=== PATIENT | female | born 1965 | race Caucasian/White ===

== ENCOUNTER 2016-08-24 09:35 | Outpatient (CLI) | payer OTHER ==
[~2016-08-24] VITALS: Ht 175.3 cm; Wt 109.1 kg
--- NOTE | ~2016-08-24 | OP ---
PATIENT NAME: AMY RAPHAEL MEDICAL RECORD: [id number] :65 LOCATION:D.CAT ADMISSION DATE: SURGEON: DARLENE KAPLAN MD DATE OF OPERATION: 08/24/2016 PROCEDURES: 1. PTCA stent left circumflex. 2. Intravascular ultrasound. 3. Left heart catheterization. 4. Selective coronary angiography. 5. Left ventriculogram. INDICATION: Angina, coronary artery disease, abnormal nuclear stress test, lateral reversible ischemia. PROCEDURE PERFORMED: After informed consent was obtained and after a detailed explanation of risks, benefits as well as alternative therapies, the patient elected to proceed with angiogram and angioplasty. The right femoral area was prepped and draped in normal sterile fashion. The right femoral artery was cannulated via modified Seldinger technique with placement of 6-[place] sheath. All catheters exchanged through this sheath. FINDINGS: Left ventriculogram was performed in standard 30-degree RIVERA view, reveals good cardiac wall motion throughout all segments. Overall ejection fraction estimated 60%. SELECTIVE CORONARY ANGIOGRAPHY: 1. Left main showed no significant angiographic disease. 2. Left anterior descending has mild irregularities, no flow-limiting stenosis. Previously placed stent is widely patent with no significant restenosis. 3. The left circumflex has previously placed stent. This is widely patent with no significant restenosis. However, after the stent, there is greater than 70% stenosis confirmed by intravascular ultrasound. 4. Right coronary has moderate irregularities, but no flow-limiting stenosis. PTCA STENT OF THE LEFT CIRCUMFLEX: The stent used was a 3.0 x 18 mm BioFreedom. Result was 0% residual stenosis. OVERALL IMPRESSION: Successful percutaneous transluminal coronary angioplasty stent of the left circumflex going from 70% initial stenosis to 0% residual. TRANSINT: Voice Confirmation ID: [id number] DOCUMENT ID: [id number] DARLENE KAPLAN MD CC: [id number] DICTATION DATE: 08/24/16 1231 BRANCH EXAMINER: 08/24/161936 [facility] CLI 08/24/16 [place] [id number] [place] [id number]
--- NOTE | ~2016-08-24 | HEMODYNAMI ---
PATIENT:AMY RAPHAEL MEDICAL RECORD: [id number] : 65 LOCATION:[facility] ADMISSION DATE: 08/24/16 Generatedon:08/24/201612:27 Patient name: AMY RAPHAEL Patient #: [id number] SSN: DO B: 1965 Date of study: 08/24/2016 Page: Of Hemodynamic Procedure Report Patient Data Patient Demographics Procedure consent was obtained First Name: AMY Gender: Female Last Name: DONAVON : 1965 [facility] Initial: MARNIE Age: 51 year(s) Patient #: [id number] Race: Unknown Additional ID: [id number] Contact details Address: [address] [place] [address] rd State: [place] City: [facility] Zip code: [address] Past Medical History Allergies Allergen Reaction Date Comments Reported Other allergy 08/24/2016 Sulfa, Zofran, phenergan, Rocephin. Admission Admission Data Admission Date: 08/24/2016 Admission Time: 9:35 Lab Results Lab Result Date: 08/24/2016 Lab Result Time: 0:00 Biochemistry Name Units Result Min Max CK-MB ng/ml 0.7 --(*---)-- 0 3.6 Creatinine mg/dl 0.8 --(-*--)-- 0.6 1.3 Troponin l ng/ml 0.017 --(-*--)-- 0 0.06 CBC Name Units Result Min Max Hemoglobin g/dl 14.9 --(-*--)-- 13.5 17.5 Procedure Procedure Types Cath Procedure Diagnostic Procedure C [facility] w/Coronaries PCI Procedure Coronary Stent Initial Miscellaneous Procedures Moderate Sedation up to 30 minutes Procedure Description Procedure Date Procedure Date: 08/24/2016 Procedure Start Time: 12:05 Procedure End Time: 12:25 Procedure Staff Name Function Byron Dhaliwal MD Performing Physician Ciara Duque RT Scrub Samy Ledbetter RN Nurse Adelfo Uribe RT Monitor Procedure Data Cath Procedure Fluoroscopy Diagnostic fluoroscopy Total fluoroscopy Time: 3.8 time: 3.8 min min Diagnostic fluoroscopy Total fluoroscopy dose: 688 dose: 688 mGy mGy Contrast Material Contrast Material Type Amount (ml) Isovue 300 95 Entry Location Entry Primary Successful Side Size Upsize Upsize Entry Closure Succes sful Closure Location (Fr) 1 (Fr) 2 (Fr) Remarks Device Remarks Femoral Right 5 Fr 6 Fr Exoseal artery Short Estimated blood loss: 10 ml Diagnostic catheters Device Type Used For End Catheter Placement Cordis 5Fr Pigtail Procedure Catheter (MP) Cordis 5Fr JL 4.0 Procedure Catheter (MP) Cordis 5Fr 3DRC Catheter Procedure (MP) Procedure Complications No complications Procedure Medications Medication Administration Route Dosage Oxygen NC 2 l/min Heparin Flush Bag added to field 2 bags (1000units/500ml NS) 0.9% NaCl I.V. 100 ml/hr Ativan 2 mg Fentanyl I.V. 50 mcg Versed I.V. 1 mg Fentanyl I.V. 50 mcg Versed I.V. 1 mg Fentanyl I.V. 50 mcg Versed I.V. 1 mg Heparin Bolus I.V. 4000 units Hemodynamics Rest HGB: 14.9 (g/dl) Heart Rate: 68 (bpm) Snapshots Pre Cath Intra NCS Post Cath Vital Signs Time Heart Resp SPO2 etCO2 MG1bhml NIBP (mmHg) Rhythm Pain Sedation Rate (ipm) (%) (mmHg) (mmHg) Status Level (bpm) 11:51:58 68 17 94 0 0 148/81(124) NSR 0 (11) 10(A) , No pain 11:56:13 67 19 96 0 0 150/86(106) NSR 0 (11) 10(A) , No pain 12:00:28 71 18 96 0 0 148/94(131) NSR 0 (11) 10(A) , No pain 12:04:43 70 18 94 0 0 152/84(103) NSR 0 (11) 10(A) , No pain 12:08:59 69 18 94 0 0 135/81(106) NSR 0 (11) 10(A) , No pain 12:13:11 72 18 96 0 0 130/87(111) NSR 0 (11) 9(A) , No pain 12:17:21 73 19 94 0 0 131/84(111) NSR 0 (11) 9(A) , No pain 12:21:31 72 18 94 0 0 133/78(98) NSR 0 (11) 9(A) , No pain 12:25:39 71 20 91 0 0 145/93(121) NSR 0 (11) 9(A) , No pain Medications Time Medication Route Dose Verified Delivered Reason Notes Effectiveness by by 11:51:41 Oxygen NC 2 Samy Lyonsy Per physician l/min Anatoly Ledbetter RN RN 11:51:50 Heparin Flush added 2 Samy Samy used for Bag to bags Anatoly Ledbetter RN procedure (1000units/500ml field RN NS) 11:52:02 0.9% NaCl I.V. 100 Samy Samy Per physician ml/hr Anatoly Ledbetter RN RN 11:52:41 Ativan I V 2 mg Byron Samy for anxiety Madhuri Ledbetter RN 12:00:12 Fentanyl I.V. 50 Samy Samy for sedation mcg Anatoly Ledbetter RN RN 12:00:20 Versed I.V. 1 mg Samy Samy for sedation Anatoly Ledbetter RN RN 12:03:21 Fentanyl I.V. 50 Samy Samy for sedation mcg Anatoly Ledbetter RN RN 12:03:26 Versed I.V. 1 mg Samy Samy for sedation Anatoly Ledbetter RN RN 12:05:59 Fentanyl I.V. 50 Samy Samy for sedation mcg Anatoly Ledbetter RN RN 12:06:04 Versed I.V. 1 mg Samy Samy for sedation Anatoly Ledbetter RN RN 12:11:17 Heparin Bolus I.V. 4000 Samy Samy for units Anatoly Ledbetter RN anticoagulation wardrobe consultant Log Time Note 11:30:09 Samy Ledbetter RN sent for patient. Start room use. 11:33:09 Time tracking: Regular hours 11:33:13 Plan of Care:Hemodynamics will remain stable., Cardiac rhythm will remain stable., Comfort level will be maintained., Respiratory function will remain adequate., Patient/ family verbilizes understanding of procedure., Procedure tolerated without complication., Recovers from procedure without complications.. 11:33:17 Use device set Femoral Dx 11:33:18 Acist Syringe opened to sterile field. 11:33:19 Bag Decanter opened to sterile field. 11:33:19 Medline Cath Pack opened to sterile field. 11:33:20 Terumo 5Fr Carmel Sheath opened to sterile field. 11:33:20 St Koko 260cm J .035 wire opened to sterile field. 11:33:21 Acist Hand Control opened to sterile field. 11:33:22 Acist Manifold opened to sterile field. 11:33:22 Diagnostic Infinity 5Fr Multipack catheter opened to sterile field. 11:33:23 Tegaderm 4 x 4 opened to sterile field. 11:40:51 Lab Result : Troponin l 0.017 ng/ml 11:40:51 Lab Result : Hemoglobin 14.9 g/dl 11:40:51 Lab Result : Creatinine 0.8 mg/dl 11:40:51 Lab Result : CK-MB 0.7 ng/ml 11:46:13 Patient received from Pre/Post Procedure Room to CCL 1 Alert and oriented. Tansferred to table in Supine position. 11:46:15 Warm blankets applied, and paloma hugger turned on for patient comfort. 11:46:16 Correct patient and procedure confirmed by team. 11:46:17 ECG and BP/O2 sat monitors applied to patient. 11:46:18 Correct patient and procedure confirmed by team. 11:46:19 Signed procedure consent form obtained from patient. 11:46:23 Full Disclosure recording started 11:50:41 Vital chart was started 11:51:41 Oxygen 2 l/min NC was administered by Samy Ledbetter RN; Per physician; 11:51:50 Heparin Flush Bag (1000units/500ml NS) 2 bags added to field was administered by Samy Ledbetter RN; used for procedure; 11:52:02 0.9% NaCl 100 ml/hr I.V. was administered by Samy Ledbetter RN; Per physician; 11:52:41 Ativan 2 mg I V was administered by Samy Ledbetter RN; for anxiety; 11:54:58 Baseline sample Acquired. 11:55:01 Rhythm: sinus rhythm 11:55:14 H&P Date Dictated: 08/03/2016 Within 30 days and on chart., H&P Addendum completed by physician on day of procedure. (MUST COMPLETE FOR ALL OUTPATIENTS). 11:57:57 Pre-procedure instructions explained to patient. 11:57:58 Pre-op teaching completed and patient verbalized understanding. 11:58:01 Family in waiting room. 11:58:03 Patient NPO since Midnight. 11:58:27 Patient allergic to Other allergySulfa, Zofran, phenergan, Rocephin. 11:58:31 Is the patient allergic to Iodine/contrast media? No. 11:58:33 Is patient on blood thinner?Yes 11:58:36 ACC The patient was administered the following blood thiners within the last 24 hours: ACCPlavix 11:58:38 Patient diabetic? No. 11:58:41 Previous problem with sedation/anesthesia? No ? 11:58:42 Snore? Yes 11:58:43 Sleep apnea? No 11:58:44 Deviated septum? No 11:58:44 Opens mouth fully? Yes 11:58:45 Sticks out tongue? Yes 11:58:47 Airway obstruction? No ? 11:58:49 Dentures? No ? 11:58:54 Pre procedure: right dorsailis pedis pulse 2+ Normal; easily identifiable; not easily obliterated 11:58:56 Patient pain scale 3/10 ?. 11:59:03 IV patent on arrival in left forearm with 0.9% NaCl at O. 11:59:05 Lab results completed and on chart. 11:59:09 Right groin area was prepped with chlora-prep and draped in sterile fashion 11:59:09 Alarms reviewed by R. N. 11:59:10 Sharps counted by scrub and verified by R.N. 11:59:23 Use device set Femoral Dx 11:59:27 Tegaderm 4 x 4 opened to sterile field. 11:59:29 Diagnostic Infinity 5Fr Multipack catheter opened to sterile field. 11:59:30 Acist Manifold opened to sterile field. 11:59:31 Acist Hand Control opened to sterile field. 11:59:32 Acist Syringe opened to sterile field. 11:59:33 Bag Decanter opened to sterile field. 11:59:33 Medline Cath Pack opened to sterile field. 11:59:35 Terumo 5Fr Carmel Sheath opened to sterile field. 11:59:36 St Koko 260cm J .035 wire opened to sterile field. 11:59:45 Physician arrived 11:59:46 --------ALL STOP TIME OUT------ 11:59:46 Final Timeout: patient, procedure, and site verified with staff and physician. All members of the team are in agreement. 11:59:48 Right groin site verified by team. 11:59:50 Physical assessment completed. ASA score P 2 - A patient with mild systemic disease as per Byron Dhaliwal MD. 11:59:53 Sedation plan: IV Moderate Sedation Versed, Fentanyl 12:00:12 Fentanyl 50 mcg I.V. was administered by Samy Ledbetter RN; for sedation; 12:00:20 Versed 1 mg I.V. was administered by Samy Ledbetter RN; for sedation; 12:03:21 Fentanyl 50 mcg I.V. was administered by Samy Ledbetter RN; for sedation; 12:03:26 Versed 1 mg I.V. was administered by Samy Ledbetter RN; for sedation; 12:05:23 Procedure started. 12:05:25 Local anesthetic to right femoral artery with Lidocaine 2% by Byron Dhaliwal MD.INITIAL ACCESS ONLY 12:05:33 A 5 Fr sheath was inserted into the Right Femoral artery 12:05:46 Zero performed for pressure channel P1 12:05:59 Fentanyl 50 mcg I.V. was administered by Samy Ledbetter RN; for sedation; 12:06:04 Versed 1 mg I.V. was administered by Samy Ledbetter RN; for sedation; 12:06:56 A Cordis 5Fr Pigtail Catheter (MP) was advanced over the wire and used for Procedure. 12:06:59 LV gram done using RIVERA 12:07:07 Injector settings: Ml/sec: 10, Volume: 20, 12:07:11 EF : 55 % 12:07:14 Catheter exchanged over wire. 12:07:32 A Cordis 5Fr JL 4.0 Catheter (MP) was advanced over the wire and used for Procedure. 12:07:35 LCA angiography performed. 12:08:30 Abzena BasixCompak Inflation Kit opened to sterile field. 12:08:34 Cardenas Whisper J 300cm 0.014 guide wire opened to sterile field. 12:08:40 Catheter exchanged over wire. 12:08:45 A Cordis 5Fr 3DRC Catheter (MP) was advanced over the wire and used for Procedure. 12:08:52 Terumo 6Fr Carmel Sheath opened to sterile field. 12:09:21 RCA angiography performed. 12:09:35 RCA angiography performed. 12:10:20 Catheter removed. 12:10:35 Sheath upsized to a 6 Fr Short. 12:10:50 Cordis 6FR XB 4.0 guide catheter opened to sterile field. 12:10:58 6 Fr XB 4 guide catheter was inserted over the wire 12:11:17 Heparin Bolus 4000 units I.V. was administered by Samy Ledbetter RN; for anticoagulation; 12:11:37 whisper wire advanced. 12:12:17 Meherrin Kashia Eagleye IVUS Catheter opened to sterile field. 12:12:21 Wire advanced across lesion. 12:12:23 IVUS catheter advanced over wire. 12:13:25 IVUS catheter removed over wire. 12:13:28 Wire removed. 12:17:37 whisper wire advanced. 12:17:39 Wire advanced across lesion. 12:17:41 Inflation Number: 1 A Biofreedom 3.0 x 18 stent was prepped and advanced across the Mid CX. The stent was deployed at 9 JUSTIN for 0:10 (min:sec). 12:18:22 Stent catheter was removed intact over wire. 12:18:23 Wire removed. 12:18:24 Guide catheter removed. 12:19:19 Cordis 6Fr Exoseal opened to sterile field. 12:20:03 Sheath removed intact; hemostasis achieved with Exoseal to the Right Femoral artery. 12:20:05 Procedure ended.(Physican Out) 12:21:17 Fluoroscopy time 03.80 minutes. 12:21:22 Flurop Dose total: 688 12:21:22 Fluoroscopy dose: 688 mGy 12:21:28 Contrast amount:Isovue 300 95ml. 12:21:30 Sharps counted by scrub and verified by R.N. 12:22:11 Insertion/operative site no bleeding no hematoma. 12:22:14 Post-op/insertion site Right Femoral artery dressed using a 4 x 4 and Tegaderm. 12:22:17 Post right femoral artery:stable, soft, clean and dry 12:22:19 Post Procedure Pulses reassessed and unchanged 12:22:22 Post-procedure physical assessment completed. ASA score P 2 - A patient with mild systemic disease as per Byron Dhaliwal MD. 12::24 Post procedure rhythm: unchanged. 12:: Estimated blood loss: 10 ml 12::28 Post procedure instruction explained to patient.Patient verbalizes understanding. 12:: Patient needs reinforcement of post procedure teaching. 12:23:24 Procedure type changed to Cath procedure, Diagnostic procedure, LHC, LHC w/Coronaries, PCI procedure, Coronary Stent Initial, Miscellaneous Procedures, Moderate Sedation up to 30 minutes 12:: Procedure and supply charges have been captured, reviewed, submitted and are correct. 12:: Procedure Complication : No complications 12:: Vital chart was stopped 12:: See physician's report for complete and final results. 12:: Report given to Pre/Post Procedure Room. 12::29 Patient transfered to Pre/Post Procedure Room with Stretcher. 12::31 Procedure ended. 12:: Full Disclosure recording stopped 12:26:07 End room use (Document Last) Intervention Summary Intervention Notes Time ActionType Lesion and Equipment Action# Pressure Duration Attributes Used 12:17:41 Place stent Mid CX Biofreedom 1 9 00:10 3.0 x 18 stent Device Usage Item Name Manufacture Quantity Catalog Hospital Part Current Minimal Lot# / Number Charge Number Stock Stock Serial# Code Acist Acist 2 83608 991156 627131 294004 20 Syringe Medical Systems Inc Bag Microtek 2 2002S [id number] 54067 824555 5 Decanter Medical Inc. Medline Cardinal 2 [id number] 323432 40756 868335 5 Cath Pack Health Terumo 5Fr Terumo 2 [id number] 518853 989712 562244 [address] Koko 2 277987 595389 673330 094338 30 260cm J .035 wire Acist Hand Acist 2 58290 516377 864231 153977 5 Control Medical Systems Inc Acist Acist 2 51512 170325 740459 526007 5 Manifold Medical Systems Inc Diagnostic Cardinal 2 [id number] 311472 36389 319095 30 Home Team Therapy 5Fr Multipack catheter Tegaderm 4 3M 2 1626W 058482 795138 537879 5 x 4 Cordis 5Fr Cardinal 1 840211 5 Pigtail Health Catheter (MP) Cordis 5Fr Cardinal 1 534675 5 JL 4.0 Health Catheter (MP) Merit Merit 1 [id number] 321387 844876 501230 15 BasixCompak Medical Inflation Kit Cardenas Cardenas 1 [id number] 500561 555757 254258 5 Whisper J Vascular 300cm 0.014 guide wire Cordis 5Fr Cardinal 1 992341 5 3DRC Health Catheter (MP) Terumo 6Fr Terumo 1 [id number] 877840 892338 038114 40 Carmel Sheath Meherrin Meherrin 1 [id number] 025552 477061 377893 8 Kashia Eagleye IVUS Catheter Biofreedom Biosensors 1 [id number] 128534 020520 5 [id number] 3.0 x 18 Europe SA stent Cordis 6Fr Cardinal 1 EX600 042806 292027 562876 10 Exoseal Health Cordis 6FR Cardinal 1 [id number] 558064 481265 992878 2 XB 4.0 Health guide catheter Signature Audit Sprague Stage Time Signature Unsigned Intra-Procedure 08/24/2016 Adelfo Uribe 12:27:15 PM RT(R) Signatures Monitor : Adelfo Uribe RT Signature : Date : Time : [facility] [address] [place] [address]
--- NOTE | ~2016-08-24 | DS ---
PATIENT:AMY RAPHAEL :65 MEDICAL RECORD: [id number] DISCHARGE SUMMARY ADMISSION DATE: 08/24/16 DISCHARGE DATE: 08/24/16 DIAGNOSES: 1. Angina. 2. Coronary artery disease. 3. Percutaneous transluminal coronary angioplasty stent of the left circumflex this admission. HOSPITAL COURSE: Mrs. Raphael presents as an outpatient with anginal symptomatology, found to have single vessel disease to the left circumflex, underwent successful PTCA stent with no complications, discharged home with the addition of Plavix and aspirin to her medical regimen. We will follow up with [facility] in 1 month. TRANSINT:[id number] Voice Confirmation ID: [id number] DOCUMENT ID: [id number] DARLENE KAPLAN MD CC: [id number] DICTATION DATE: 08/24/16 1559 [employer] TANK[employer] DRIVER: 08/25/16 0105 DEP CLI 08/24/16 [place] [id number] [place] [id number]
[~2016-08-24 09:35] MED LIST: ASPIRIN81 MG PO; ATIVAN1 MG; AUGMENTIN1 TAB.SR . PO; CALTRATE 600 M600 M1 PO; CORTANE-B OTIC10 ML RIGHT EAR; CYMBALTA30 MG PO; DIFLUCAN100 MG PO; HYDROCODONE-APA1 TAB PO; IPRAT-ALBUT 0.5-3 ML UPD; LIDOCAINE PATCH TD; LIDOCAINE-PRILOC5 GM TP; LOPRESSOR25 MG PO; MULTI-DAY VITAM1 TAB PO; NORCO 10/325 TA1 TA1; NYSTATIN1 PWD TOPICAL; OMEPRAZOLE40 MG PO; PHENERGAN25 M1; PHENERGAN50 MG RC; PLAVIX75 MG PO; PRAVACHOL20 MG PO; PRILOSEC20 MG PO; PRISTIQ50 MG PO; PROBIOTIC1 EAC1 PO; ROBAXIN-750750 MG PO; ROBITUSSIN AC (10 M1 PO; SINEQUAN100 MG PO; VITAMIN B-1000 MCG/M SQ; VITAMIN D250000 UNIT PO; VITAMIN D31000 UNIT PO; VITAMIN D50000 UNIT PO; XANAX0.25 MG; XANAX0.25 MG PO
[2016-08-24] MEDS ORDERED: VITAMIN B COMPL1 TAB PO (09:59)
[2016-08-24] MEDS ORDERED: PRENATAL-U CA1 UDCAP PO (09:59)
[2016-08-24] MEDS ORDERED: VITAMIN B-1000 MCG/M SQ (09:59)
[2016-08-24 10:00] VITALS: BP 135/77; Ht 175.3 cm; Wt 109.1 kg
[2016-08-24 10:12] LABS: BASOPHILS 0.3 % (0.0-2.0); EOSINOPHILS 0.1 % (0-7); HEMATOCRIT 45.8 % (36.0-48.0); HEMOGLOBIN 14.9 g/dL (12-16); IMMATURE GRANULOCYTES 0.3 % (0-5); LYMPHOCYTES 31.3 % (15-50); MCH 29.7 pg (26.0-34.0); MCHC 32.5 g/dL (31.0-37.0); MCV 91.2 fL (80.0-100.0); MEAN PLATELET VOLUME 11.3 fL (7.4-10.4); MONOCYTES 7.1 % (2-11); NEUTROPHILS 60.9 % (40-80); PLATELET COUNT 260 10x3/uL (130-400); RBC 5.02 10x6/uL (4.00-5.40); RDW 13.7 % (11.5-14.5); WBC 7.5 10x3/uL (4.8-10.8)
[2016-08-24 10:20] LABS: CALC OSMOLALITY 283 mosm/kg (275-300); CALCIUM 9.2 mg/dL (8.5-10.1); CARBON DIOXIDE 29.5 mmol/L (21.0-32.0); CHLORIDE - SERUM 104 mmol/L (98-107); CREATININE - SERUM 0.8 mg/dL (0.6-1.3); GLUCOSE 99 mg/dL (74-106); POTASSIUM - SERUM 4.4 mmol/L (3.5-5.1); SODIUM 143 mmol/L (136-145); UREA NITROGEN 9 mg/dL (7-18); eGFR NON AFRICAN AMERICAN 80 mL/min (90-120)
[2016-08-24 10:45] LABS: CKMB 0.7 U/L (0.0-3.6); CREATINE KINASE 107 UL (21-215); TROPONIN-I < 0.017 ng/mL (0.000-0.060)
[2016-08-24] MEDS ORDERED: PLAVIX75 MG PO (12:55)
[2016-08-24] MEDS ORDERED: BAYER CHEWABLE81 MG PO (12:56)
--- NOTE | 2016-08-24 13:06 | NUR ---
VSS WITH CHEST PAIN DENIED 6 FR EXOSEAL R/GROIN CDI NO BLEEDING NO HEMATOMA NOTED.
--- NOTE | 2016-08-24 13:30 | NUR ---
1330 CHEST PAIN DENIED WITH VSS 6 FR EXOSEAL R/GROIN CDI NO BLEEDING NO HEMATOMA NOTED.
--- NOTE | 2016-08-24 14:00 | NUR ---
RESTING QUIETLY WITH EYES CLOSED NO DISTRESS NOTED. AT BEDSIDE VSS WITH 6 FR EXOSEAL R/GROIN CDI NO BLEEDING NO HEMATOMA NOTED
--- NOTE | 2016-08-24 14:20 | NUR ---
NO COMPLAINTS WITH VSS CHEST PAIN DENIED R/GROIN CDI
--- NOTE | 2016-08-24 15:30 | NUR ---
PATIENT COMPLAINS OF CHEST PAIN WITH DR KAPLAN NOTIFIED EKG COMPLETE AND TO CHART WITH LAB PRESENT FOR BLOOD DRAW. PATIENT REQUESTING ATIVAN ORDERS GIVEN WITH 1 MG GIVEN PO. PATIENT VERBALIZED I THOUGHT THIS WOULD BE IV
[2016-08-24 16:02] LABS: CKMB 0.5 U/L (0.0-3.6); CREATINE KINASE 83 UL (21-215)
[2016-08-24 16:07] LABS: TROPONIN-I 0.016 ng/mL (0.000-0.060)
--- NOTE | 2016-08-24 16:29 | NUR ---
PIV REMOVED WITH DRESSING APPLIED CHEST PAIN IS DENIED. 6 FR EXOSEAL R/GROIN CDI NO BLEEDING NO HEMATOMA NOTED. PATIENT UP TO GET DRESSED FOR DISCHARGE HOME
--- NOTE | 2016-08-24 16:43 | NUR ---
VERBAL AND WRITTEN DISCHARGE GONE OVER WITH PATIENT AND FAMILY. LEFT VIA WC TO PARKING FOR DRIVE HOME
== END 2016-08-24 16:46 | disposition home or self-care (01) ==
LOC: D.CATH 09:35
PROVIDERS: Internal Medicine Interventional Cardiology
DX: I25.119 Atherosclerotic heart disease of native coronary artery with unspecified angina pectoris (principal); R94.39 Abnormal result of other cardiovascular function study; Z95.5 Presence of coronary angioplasty implant and graft; Z00.6 Encounter for examination for normal comparison and control in clinical research program

== ENCOUNTER → 2016-12-01 08:24 | Outpatient (CLI) | payer OTHER ==
[2016-08-24 10:00] VITALS: BMI 35.5
[~2016-12-01 08:24] MED LIST changes: +BAYER CHEWABLE81 MG PO; +PRENATAL-U CA1 UDCAP PO; +VITAMIN B COMPL1 TAB PO
[2016-12-01 08:52] LABS: BASOPHILS 0 % (0-2); EOSINOPHILS 0.1 % (0-7); HEMATOCRIT 43.9 % (36.0-48.0); HEMOGLOBIN 14.4 g/dL (12-16); IMMATURE GRANULOCYTES 0.1 % (0-5); LYMPHOCYTES 30.9 % (15-50); MCH 29.3 pg (26.0-34.0); MCHC 32.8 g/dL (31.0-37.0); MCV 89.2 fL (80.0-100.0); MEAN PLATELET VOLUME 11.1 fL (7.4-10.4); MONOCYTES 4.9 % (2-11); PLATELET COUNT 246 10x3/uL (130-400); RBC 4.92 10x6/uL (4.00-5.40); RDW 13.5 % (11.5-14.5); WBC 6.7 10x3/uL (4.8-10.8)
[2016-12-01 09:18] LABS: HEMOGLOBIN A1C 5.5 % (4.8-6.0)
[2016-12-01 09:20] LABS: ALBUMIN 3.5 g/dL (3.4-5.0); ALKALINE PHOSPHATASE 119 U/L (46-116); ALT (SGPT) 115 U/L (10-68); BILIRUBIN - TOTAL 0.43 mg/dL (0.2-1.3); CALC OSMOLALITY 284 mosm/kg (275-300); CALCIUM 8.9 mg/dL (8.5-10.1); CARBON DIOXIDE 29.6 mmol/L (21.0-32.0); CHLORIDE - SERUM 106 mmol/L (98-107); CHOL - HDL RATIO 2.1 ratio (2.3-4.1); CHOLESTEROL, TOTAL 151 mg/dL (0-200); CREATININE - SERUM 0.8 mg/dL (0.6-1.3); GLUCOSE 97 mg/dL (74-106); HDL CHOLESTEROL 73 mg/dL (32-96); LDL CHOLESTEROL 61 mg/dL (0-100); LDL-HDL RATIO 0.8 ratio (1.5-3.5); MAGNESIUM - SERUM 1.8 mg/dL (1.8-2.4); POTASSIUM - SERUM 4.3 mmol/L (3.5-5.1); PROTEIN - SERUM 7.1 g/dL (6.4-8.2); SODIUM 144 mmol/L (136-145); TRIGLYCERIDE 85 mg/dL (30-200); UREA NITROGEN 8 mg/dL (7-18); eGFR NON AFRICAN AMERICAN 80 mL/min (90-120)
[2016-12-02 07:25] LABS: VITAMIN D 25 HYDROXY 43.6 ng/mL (30.0-100.0)
== END | disposition home or self-care (01) ==
LOC: D.LAB 08:24
PROVIDERS: Family Medicine
DX: Z00.00 Encounter for general adult medical examination without abnormal findings (principal); I25.10 Atherosclerotic heart disease of native coronary artery without angina pectoris; I10 Essential (primary) hypertension; M79.7 Fibromyalgia; M85.80 Other specified disorders of bone density and structure, unspecified site

== ENCOUNTER → 2017-02-01 13:14 | Outpatient (CLI) | payer OTHER ==
[2016-08-24 10:00] VITALS: BMI 35.5
[2017-02-01 14:20] LABS: HELICOBACTER PYLORI IGG NEGATIVE (NEGATIVE)
== END | disposition home or self-care (01) ==
LOC: D.LAB 13:14
PROVIDERS: Family Medicine
DX: R07.9 Chest pain, unspecified (principal); R10.9 Unspecified abdominal pain

== ENCOUNTER 2017-03-01 07:07 | Outpatient (CLI) | payer OTHER ==
--- NOTE | ~2017-03-01 | HEMODYNAMI ---
PATIENT:AMY RAPHAEL MEDICAL RECORD: [id number] : 65 LOCATION:[facility] ADMISSION DATE: 03/01/17 Generatedon:03/01/20179:12 Patient name: AMY RAPHAEL Patient #: [id number] SSN: DO B: 1965 Date of study: 03/01/2017 Page: Of Hemodynamic Procedure Report Patient Data Patient Demographics Procedure consent was obtained First Name: AMY Gender: Female Last Name: DONAVON : 1965 [facility] Initial: MARNIE Age: 51 year(s) Patient #: [id number] Race: Unknown Additional ID: [id number] Contact details Address: [address] [place] [address] rd State: [place] City: [facility] Zip code: [address] Past Medical History Allergies Allergen Reaction Date Comments Reported Other allergy 08/24/2016 Sulfa, Zofran, phenergan, Rocephin. Admission Admission Data Admission Date: 03/01/2017 Admission Time: 7:07 Procedure Procedure Types Cath Procedure Diagnostic Procedure [facility] w/Coronaries PCI Procedure Coronary Stent Initial Miscellaneous Procedures Moderate Sedation up to 15 minutes Procedure Description Procedure Date Procedure Date: 03/01/2017 Procedure Start Time: 8:53 Procedure End Time: 9:12 Procedure Staff Name Function Colette Dacosta RT Scrub Byron Dhaliwal MD Performing Physician Samy Ledbetter RN Nurse Adalberto Fried RT Monitor Procedure Data Cath Procedure Fluoroscopy Diagnostic fluoroscopy Total fluoroscopy Time: 2.1 time: 2.1 min min Diagnostic fluoroscopy Total fluoroscopy dose: 901 dose: 901 mGy mGy Contrast Material Contrast Material Type Amount (ml) Isovue 300 84 Entry Location Entry Primary Successful Side Size Upsize Upsize Entry Closure Succes sful Closure Location (Fr) 1 (Fr) 2 (Fr) Remarks Device Remarks Femoral Right 5 Fr 6 Fr Exoseal artery Short Estimated blood loss: 10 ml Diagnostic catheters Device Type Used For End Catheter Placement Cordis 5Fr Pigtail Procedure Catheter (MP) Cordis 5Fr JL 4.0 Procedure Catheter (MP) Cordis 5Fr 3DRC Catheter Procedure (MP) Procedure Complications No complications Procedure Medications Medication Administration Route Dosage Oxygen NC 2 l/min Heparin Flush Bag added to field 2 bags (1000units/500ml NS) 0.9% NaCl I.V. 100 ml/hr Fentanyl I.V. 50 mcg Versed I.V. 1 mg Fentanyl I.V. 50 mcg Versed I.V. 1 mg Fentanyl I.V. 50 mcg Versed I.V. 1 mg Fentanyl I.V. 50 mcg Versed I.V. 1 mg Heparin Bolus I.V. 4000 units Integrilin (Bolus I.V. 10.2 ml 2mg/ml) Integrilin (Bolus wasted 9.8 ml 2mg/ml) Plavix P.O. 600 mg Hemodynamics Rest Heart Rate: 76 (bpm) Pressure Samples Time Site Value (mmHg) Purpose Heart Use Rate(bpm) 9:00 AO 138/83(107) Snapshot 70 Snapshots Pre Cath Intra NCS Post Cath Vital Signs Time Heart Resp SPO2 etCO2 NIBP (mmHg) Rhythm Pain Sedation Rate (ipm) (%) (mmHg) Status Level (bpm) 8:43:27 67 10 100 12.8 160/99(123) NSR 0 (11) 10(A) , No pain 8:48:22 76 17 98 12 161/101(125) NSR 0 (11) 10(A) , No pain 8:53:13 75 17 97 0 137/93(109) NSR 0 (11) 10(A) , No pain 8:58:57 72 16 90 0 141/103(122) NSR 0 (11) 10(A) , No pain 9:03:45 76 17 95 10.5 145/88(114) NSR 0 (11) 10(A) , No pain 9:07:39 73 17 97 0 146/81(114) NSR 0 (11) 10(A) , No pain Medications Time Medication Route Dose Verified Delivered Reason Notes Effectiveness by by 8:45:15 Oxygen NC 2 Byron Pablo Per physician l/min Madhuri Ledbetter RN 8:45:24 Heparin Flush added 2 Byron Pablo used for Bag to bags Madhuri Ledbetter skewer up (1000units/500ml field NS) 8:45:32 0.9% NaCl I.V. 100 Byron Samy Per physician ml/hr Madhuri Ledbetter RN 8:50:21 Fentanyl I.V. 50 Byron Samy for sedation mcg Madhuri Ledbetter RN 8:50:28 Versed I.V. 1 mg Byron Samy for sedation Madhuri Ledbetter RN 8:53:44 Fentanyl I.V. 50 Byron Samy for sedation mcg Madhuri Ledbetter RN 8:53:48 Versed I.V. 1 mg Byron Samy for sedation Madhuri Ledbetter RN 8:55:20 Fentanyl I.V. 50 Byron Samy for sedation mcg Madhuri Ledbetter RN 8:55:25 Versed I.V. 1 mg Byron Samy for sedation Madhuri Ledbetter RN 8:56:17 Fentanyl I.V. 50 Byron Samy for sedation mcg Madhuri Ledbetter RN 8:56:21 Versed I.V. 1 mg Byron Lyonsy for sedation Madhuri Ledbetter RN 9:00:56 Heparin Bolus I.V. 4000 Byron Pablo for units Madhuri Ledbetter RN anticoagulation 9:01:08 Integrilin I.V. 10.2 Byron Pablo for (Bolus 2mg/ml) ml Madhuri Ledbetter RN anticoagulation 9:01:18 Integrilin wasted 9.8 Byron Pablo for (Bolus 2mg/ml) ml Madhuri Ledbetter RN anticoagulation 9:05:51 Plavix P.O. 600 Byron Pablo for mg Madhuri Ledbetter RN antiplatelet therapy Procedure Log Time Note 8:26:59 Samy Ledbetter RN sent for patient. Start room use. 8:27:01 Time tracking: Regular hours 8:27:05 Plan of Care:Hemodynamics will remain stable., Cardiac rhythm will remain stable., Comfort level will be maintained., Respiratory function will remain adequate., Patient/ family verbilizes understanding of procedure., Procedure tolerated without complication., Recovers from procedure without complications.. 8:27:55 H&P Date Dictated: 02/22/2017 Within 30 days and on chart.. 8:36:25 Patient received from Pre/Post Procedure Room to [facility] 1 Alert and oriented. Tansferred to table in Supine position. 8:37:26 Warm blankets applied, and paloma hugger turned on for patient comfort. 8:37:27 Correct patient and procedure confirmed by team. 8:37:29 Signed procedure consent form obtained from patient. 8:37:30 ECG and BP/O2 sat monitors applied to patient. 8:42:17 Vital chart was started 8:45:15 Oxygen 2 l/min NC was administered by Samy Ledbetter RN; Per physician; 8:45:24 Heparin Flush Bag (1000units/500ml NS) 2 bags added to field was administered by Samy Ledbetter RN; used for procedure; 8:45:32 0.9% NaCl 100 ml/hr I.V. was administered by Samy Ledbetter RN; Per physician; 8:49:06 Baseline sample Acquired. 8:49:10 Rhythm: sinus rhythm 8:49:11 Full Disclosure recording started 8:49:12 Pre-procedure instructions explained to patient. 8:49:12 Pre-op teaching completed and patient verbalized understanding. 8:49:15 Family in waiting room. 8:49:16 Patient NPO since Midnight. 8:49:18 Is the patient allergic to Iodine/contrast media? No. 8:49:19 Is patient on blood thinner?No 8:49:21 Patient diabetic? No. 8:49:23 Patient not . Patient is over age 55. 8:49:26 Previous problem with sedation/anesthesia? No ? 8:49:31 Snore? No 8:49:32 Sleep apnea? No 8:49:32 Deviated septum? No 8:49:33 Opens mouth fully? Yes 8:49:34 Sticks out tongue? Yes 8:49:35 Airway obstruction? No ? 8:49:37 Dentures? No ? 8:49:39 Pre procedure: right dorsailis pedis pulse 1+ Palpable, but thready & weak; easily obliterated 8:49:41 Patient pain scale 0/10 ?. 8:49:46 IV patent on arrival in left forearm with 0.9% NaCl at [facility]. 8:49:48 Lab results completed and on chart. 8:49:51 Right groin area was prepped with chlora-prep and draped in sterile fashion 8:49:52 Alarms reviewed by R. N. 8:49:53 Sharps counted by scrub and verified by R.N. 8:49:54 --------ALL STOP TIME OUT------ 8:49:54 Final Timeout: patient, procedure, and site verified with staff and physician. All members of the team are in agreement. 8:49:56 Right groin site verified by team. 8:49:59 Physical assessment completed. ASA score P 2 - A patient with mild systemic disease as per Byron Dhaliwal MD. 8:50:02 Sedation plan: IV Moderate Sedation Versed, Fentanyl 8:50:21 Fentanyl 50 mcg I.V. was administered by Samy Ledbetter RN; for sedation; 8:50:28 Versed 1 mg I.V. was administered by Samy Ledbetter RN; for sedation; 8:53:04 Use device set Femoral Dx 8:53:06 Tegaderm 4 x 4 opened to sterile field. 8:53:06 Acist Hand Control opened to sterile field. 8:53:07 Acist Manifold opened to sterile field. 8:53:08 Acist Syringe opened to sterile field. 8:53:08 Bag Decanter opened to sterile field. 8:53:08 Medline Cath Pack opened to sterile field. 8:53:09 Terumo 5Fr [place] Sheath opened to sterile field. 8:53:09 St Koko 260cm J .035 wire opened to sterile field. 8:53:10 Diagnostic Infinity 5Fr Multipack catheter opened to sterile field. 8:53:15 Procedure started. 8:53:42 Local anesthetic to right femoral artery with Lidocaine 2% by Byron Dhaliwal MD.INITIAL ACCESS ONLY 8:53:44 Fentanyl 50 mcg I.V. was administered by Samy Ledbetter RN; for sedation; 8:53:48 Versed 1 mg I.V. was administered by Samy Ledbetter RN; for sedation; 8:53:48 Zero performed for pressure channel P1 8:53:50 Zero performed for pressure channel P1 8:53:52 Zero performed for pressure channel P1 8:53:55 Zero performed for pressure channel P1 8:54:03 Zero performed for pressure channel P1 8:54:06 Zero performed for pressure channel P1 8:54:08 Zero performed for pressure channel P1 8:54:21 Zero performed for pressure channel P1 8:54:23 Zero performed for pressure channel P1 8:54:37 A 5 Fr sheath was inserted into the Right Femoral artery 8:54:43 A Cordis 5Fr Pigtail Catheter (MP) was advanced over the wire and used for Procedure. 8:55:20 Fentanyl 50 mcg I.V. was administered by Samy Ledbetter RN; for sedation; 8:55:20 LV angiography performed. 8:55:21 LV gram done using RIVERA 8:55:25 Versed 1 mg I.V. was administered by Samy Ledbetter RN; for sedation; 8:55:26 EF : 50 % 8:55:32 Injector settings: Ml/sec: 10, Volume: 20, 8:55:33 Catheter removed. 8:55:54 A Cordis 5Fr JL 4.0 Catheter (MP) was advanced over the wire and used for Procedure. 8:56:17 Fentanyl 50 mcg I.V. was administered by Samy Ledbetter RN; for sedation; 8:56:21 Versed 1 mg I.V. was administered by Samy Ledbetter RN; for sedation; 8:56:27 LCA angiography performed. 8:57:06 Catheter removed. 8:57:11 A Cordis 5Fr 3DRC Catheter (MP) was advanced over the wire and used for Procedure. 8:57:42 Terumo 6Fr [place] Sheath opened to sterile field. 8:57:42 Moogi BasixCompak Inflation Kit opened to sterile field. 8:57:44 Cardenas Whisper J 300cm 0.014 guide wire opened to sterile field. 8:58:23 RCA angiography performed. 8:58:24 Catheter removed. 8:58:33 Cordis 6FR XBLAD 3.5 guide catheter opened to sterile field. 8:59:52 Sheath upsized to a 6 Fr Short. 9:00:00 Study PCI Site: Inupiat pCirc has 90% stenosis. 9:00:02 ACC Pre-intervention TATA Flow is 3. 9:00:16 6 Fr XBLAD 3.5 guide catheter was inserted over the wire 9:00:41 Whisper wire advanced. 9:00:56 Heparin Bolus 4000 units I.V. was administered by Samy Ledbetter RN; for anticoagulation; 9:01:08 Integrilin (Bolus 2mg/ml) 10.2 ml I.V. was administered by Samy Ledbetter RN; for anticoagulation; 9:01:18 Integrilin (Bolus 2mg/ml) 9.8 ml wasted was administered by Samy Ledbetter RN; for anticoagulation; 9:01:19 Wire advanced across lesion. 9:01:49 Inflation Number: 1 A Winfield OTW 3.5 x 08 stent was prepped and advanced across the Prox CX. The stent was deployed at 17 JUSTIN for 0:10 (min:sec). 9:03:27 ACC Post-intervention TATA Flow is 3. 9:03:28 Stent catheter was removed intact over wire. 9:03:29 Wire removed. 9:03:30 Guide catheter removed. 9:03:44 Cordis 6Fr Exoseal opened to sterile field. 9:03:58 Sheath removed intact; hemostasis achieved with Exoseal to the Right Femoral artery. 9:04:00 Procedure ended.(Physican Out) 9:05:51 Plavix 600 mg P.O. was administered by Samy Ledbetter RN; for antiplatelet therapy; 9:06:27 Fluoroscopy time 02.10 minutes. 9:06:30 Fluoroscopy dose: 901 mGy 9:06:30 Flurop Dose total: 901 9:06:34 Contrast amount:Isovue 300 84ml. 9:06:36 Sharps counted by scrub and verified by R.N. 9:06:37 Insertion/operative site no bleeding no hematoma. 9:06:40 Post-op/insertion site Right Femoral artery dressed using a 4 x 4 and Tegaderm. 9:06:41 Post Procedure Pulses reassessed and unchanged 9:06:44 Post-procedure physical assessment completed. ASA score P 2 - A patient with mild systemic disease as per Byron Dhaliwal MD. 9:06:46 Post procedure rhythm: unchanged. 9:06:48 Estimated blood loss: 10 ml 9:06:50 Post procedure instruction explained to patient.Patient verbalizes understanding. 9:06:50 Patient needs reinforcement of post procedure teaching. 9:07:25 Procedure type changed to Cath procedure, Diagnostic procedure, LHC, LHC w/Coronaries, PCI procedure, Coronary Stent Initial, Miscellaneous Procedures, Moderate Sedation up to 15 minutes 9:07:27 Procedure and supply charges have been captured, reviewed, submitted and are correct. 9:07:30 Procedure Complication : No complications 9:12:01 Vital chart was stopped 9:12:01 See physician's report for complete and final results. 9:12:06 Report given to Pre/Post Procedure Room. 9:12:09 Patient transfered to Pre/Post Procedure Room with Stretcher. 9:12:17 Procedure ended. 9:12:17 Full Disclosure recording stopped 9:12:21 End room use (Document Last) Intervention Summary Intervention Notes Time ActionType Lesion and Equipment Action# Pressure Duration Attributes Used 9:01:49 Place stent Prox CX Ramon OTW 1 17 00:10 3.5 x 08 stent Device Usage Item Name Manufacture Quantity Catalog Hospital Part Current Minima l Lot# / Number Charge Number Stock Stock Serial# Code Tegaderm 4 3M 1 [id number] 5 x 4 Acist Hand Acist 1 53383 790787 671458 976734 5 Control Medical Systems [employer] Acist Acist 1 88433 078412 293058 766679 5 Manifold Medical Systems [employer] Acist Acist 1 08260 102624 603019 162929 20 Syringe Medical Systems [employer] Bag Microtek 1 2002S 182810 58766 052464 5 DecC2C [employer] Medline Cardinal 1 [id number] 250253 20858 504799 5 Cath Pack Health Terumo 5Fr Terumo 1 [id number] 535989 144731 054968 [address] Koko 1 874386 724541 022893 727273 30 260cm J .035 wire Diagnostic Cardinal 1 [id number] 320321 29684 229458 30 Infinity Health 5Fr Multipack catheter Cordis 5Fr Cardinal 1 [id number] 5 Pigtail Health Catheter (MP) Cordis 5Fr Cardinal 1 485138 5 JL 4.0 Health Catheter (MP) Cordis 5Fr Cardinal 1 674888 5 3DRC Health Catheter (MP) Terumo 6Fr Terumo 1 [id number] 099533 318400 700589 40 [place] Sheath Merit Merit 1 [id number] 417618 619433 162307 15 BasixCompak Medical Inflation Kit Cardenas Cardenas 1 [id number] 634164 935272 695485 5 Whisper J Vascular 300cm 0.014 guide wire Cordis 6FR Cardinal 1 [id number] 580091 697211 580749 10 XBLAD 3.5 Health guide catheter Winfield OTW Medtronic 1 [id number] 885016 1195120 497010 5 [id number] 3.5 x 08 stent Cordis 6Fr Cardinal 1 [id number] 590051 137913 198477 10 [facility] Health Signature Audit [place] Stage Time Signature Unsigned Intra-Procedure 03/01/2017 Adalberto Fried 9:12:34 AM RT(R) Signatures Monitor : Adalberto Fried RT Signature : Date : Time : [place] [id number] [place] [id number]
[~2017-03-01 07:07] MED LIST changes: -ATIVAN1 MG; +ATIVAN1 MG PO
[2017-03-01] MEDS ORDERED: NITRO-DUR0.1 MG TRANSDERM (07:13)
[2017-03-01] MEDS ORDERED: SINEQUAN100 MG PO (07:14)
[2017-03-01] MEDS ORDERED: PRENATAL COMPLE1 TAB PO (07:18)
[2017-03-01] MEDS ORDERED: HYDROCODONE-APA1 TAB PO (07:22)
[2017-03-01 07:25] VITALS: BP 139/74; BMI 35.8
[2017-03-01 07:36] LABS: BASOPHILS 0 % (0-2); EOSINOPHILS 0 % (0-7); HEMATOCRIT 44.3 % (36.0-48.0); HEMOGLOBIN 14.5 g/dL (12-16); IMMATURE GRANULOCYTES 0.2 % (0-5); LYMPHOCYTES 37.1 % (15-50); MCH 29.5 pg (26.0-34.0); MCHC 32.7 g/dL (31.0-37.0); MONOCYTES 6.5 % (2-11); NEUTROPHILS 56.2 % (40-80); PLATELET COUNT 242 10x3/uL (130-400); RBC 4.92 10x6/uL (4.00-5.40); RDW 13.6 % (11.5-14.5)
[2017-03-01 07:57] LABS: ANION GAP 14.5 mmol/L (8-16); CALCIUM 9.2 mg/dL (8.5-10.1); CARBON DIOXIDE 27.6 mmol/L (21.0-32.0); CREATININE - SERUM 0.9 mg/dL (0.6-1.3); POTASSIUM - SERUM 4.1 mmol/L (3.5-5.1)
[2017-03-01] MEDS ORDERED: PLAVIX75 MG PO (10:02)
--- NOTE | 2017-03-03 16:56 | OP ---
PATIENT NAME: AMY RAPHAEL MEDICAL RECORD: [id number] :65 LOCATION:D.[facility] ADMISSION DATE: SURGEON: DARLENE KAPLAN MD DATE OF OPERATION: 03/01/2017 PROCEDURES: 1. PTCA stent of left circumflex. 2. Left heart catheterization. 3. Selective coronary angiography. 4. Left ventriculogram. INDICATION: Angina and coronary artery disease. PROCEDURE IN DETAIL: After informed consent was obtained and after detailed explanation of risks, benefits as well as alternative therapies, the patient elected to proceed with angiogram and angioplasty. The right femoral area was prepped and draped in normal sterile fashion. The right femoral artery was cannulated via modified Seldinger technique with placement of 6-English sheath. All catheters exchanged through this sheath. FINDINGS: The left ventriculogram was performed in the standard 30-degree RIVERA view reveals good cardiac wall motion throughout all segments. Overall ejection fraction 50%. SELECTIVE CORONARY ANGIOGRAPHY: 1. Left main showed no significant angiographic disease. 2. Left anterior descending has moderate irregularities, but no flow-limiting stenosis. 3. The left circumflex has 90% to 95% stenosis at the ostium. 4. Right coronary has 60% to 70% stenosis in the distal aspect, otherwise only mild irregularities. PTCA STENT OF THE LEFT CIRCUMFLEX: The stent used is a 3.5 x 8 mm Ramon. Result was 0% residual stenosis. OVERALL IMPRESSION: Successful percutaneous transluminal coronary angioplasty stent of the left circumflex going from 95% initial stenosis to 0% residual. TRANSINT:[id number] Voice Confirmation ID: [id number] DOCUMENT ID: [id number] DARLENE KAPLAN MD at 1656 CC: [id number] DICTATION DATE: 03/01/17 0923 TIP SCOURER: 03/01/17 1101 DEP CLI 03/01/17 [place] [id number] [place] [id number]
== END 2017-03-01 13:35 | disposition home or self-care (01) ==
LOC: D.CATH 07:07
PROVIDERS: Internal Medicine Interventional Cardiology
DX: I25.119 Atherosclerotic heart disease of native coronary artery with unspecified angina pectoris (principal); Z01.812 Encounter for preprocedural laboratory examination

== ENCOUNTER 2017-04-05 07:33 | Outpatient (CLI) | payer OTHER ==
[~2017-04-05] VITALS: Ht 175.3 cm; Wt 109.1 kg
--- NOTE | ~2017-04-05 | HEMODYNAMI ---
PATIENT:AMY RAPHAEL MEDICAL RECORD: [id number] : 65 LOCATION:[facility] ADMISSION DATE: 04/05/17 Generatedon:04/05/201710:50 Patient name: AMY RAPHAEL Patient #: [id number] SSN: [id number] : 1965 Date of study: 04/05/2017 Page: Of Hemodynamic Procedure Report Patient Data Patient Demographics Procedure consent was obtained First Name: AMY Gender: Female Last Name: DONAVON : 1965 [facility] Initial: MARNIE Age: 52 year(s) Patient #: [id number] Race: SSN: [id number] Additional ID: [id number] Contact details Address: [address] [place] [address] rd State: [place] City: [facility] Zip code: [address] Past Medical History Allergies Allergen Reaction Date Comments Reported Other allergy 08/24/2016 Sulfa, Zofran, phenergan, Rocephin. Other allergy 04/05/2017 Sulfa, Rocephin, Imdur, Zofran, Phenergan Admission Admission Data Admission Date: 04/05/2017 Admission Time: 7:33 Arrival Date: 04/05/2017 Arrival Time: 9:30 Admit Source: Other Insurance Payor: Private health insurance Height (in.): 69 BSA: 2.23 (m2) Height (cm.): 175.26 BMI: 35.44 (kg/m2) Weight (lbs.): 240 Weight (kg.): 108.86 Lab Results Lab Result Date: 04/05/2017 Lab Result Time: 0:00 Biochemistry Name Units Result Min Max BUN mg/dl 9 --(*---)-- 7 18 Creatinine mg/dl 0.8 --(-*--)-- 0.6 1.3 CBC Name Units Result Min Max Hemoglobin g/dl 14.4 --(*---)-- 13.5 17.5 Procedure Procedure Types Cath Procedure Diagnostic Procedure FFR/IVUS Intra-Coronary IVUS Initial PCI Procedure Coronary Stent Coronary Stent Initial Miscellaneous Procedures Moderate Sedation up to 30 minutes Procedure Description Procedure Date Procedure Date: 04/05/2017 Procedure Start Time: 10:34 Procedure End Time: 10:49 Procedure Staff Name Function Byron Dhaliwal MD Performing Physician Denice Grace RT Monitor Yasemin Dolan RT Scrub Samy Ledbetter RN Nurse Procedure Data Cath Procedure Fluoroscopy Diagnostic fluoroscopy Total fluoroscopy Time: 3.8 time: 3.8 min min Diagnostic fluoroscopy Total fluoroscopy dose: 598 dose: 598 mGy mGy Contrast Material Contrast Material Type Amount (ml) Isovue 300 76 Entry Location Entry Primary Successful Side Size Upsize Upsize Entry Closure Succes sful Closure Location (Fr) 1 (Fr) 2 (Fr) Remarks Device Remarks Femoral Left 6 Fr Exoseal artery Short Estimated blood loss: 5 ml Diagnostic catheters Device Type Used For End Catheter Placement Diagnostic Infinity 5Fr Left Coronary JL 4.0 catheter Angiography Procedure Complications No complications Procedure Medications Medication Administration Route Dosage Oxygen NC 2 l/min Heparin Flush Bag added to field 2 bags (1000units/500ml NS) 0.9% NaCl I.V. 100 ml/hr Fentanyl I.V. 100 mcg Versed I.V. 2 mg Fentanyl I.V. 100 mcg Versed I.V. 2 mg Heparin Bolus I.V. 4000 units Hemodynamics Rest BSA: 2.23 (m2) HGB: 14.4 (g/dl) O2 Consumption: Estimated: 225.73 (ml/min) O2 Co nsumption indexed: Estimated:101.22 (ml/min/m) Heart Rate: 81 (bpm) Snapshots Pre Cath Intra NCS Post Cath Vital Signs Time Heart Resp SPO2 etCO2 NIBP (mmHg) Rhythm Pain Sedation Rate (ipm) (%) (mmHg) Status Level (bpm) 10:08:10 77 17 95 0 127/86(108) NSR 0 (11) 10(A) , No pain 10:13:21 79 16 96 0 117/86(111) NSR 0 (11) 10(A) , No pain 10:17:29 72 20 92 0 125/78(97) NSR 0 (11) 10(A) , No pain 10:21:41 76 18 96 15.8 116/80(100) NSR 0 (11) 10(A) , No pain 10:25:55 70 17 93 35.4 116/75(93) NSR 0 (11) 10(A) , No pain 10:30:02 70 18 93 41.4 114/79(95) NSR 0 (11) 10(A) , No pain 10:34:12 69 18 90 46.7 122/70(91) NSR 0 (11) 10(A) , No pain 10:38:18 70 20 91 43.7 115/72(93) NSR 0 (11) 10(A) , No pain 10:42:30 71 20 91 44.4 111/65(94) NSR 0 (11) 10(A) , No pain 10:46:44 74 19 94 41.4 118/59(96) NSR 0 (11) 10(A) , No pain 10:49:16 73 16 93 38.4 116/80(103) NSR 0 (11) 10(A) , No pain Medications Time Medication Route Dose Verified Delivered Reason Notes Effectiveness by by 10:14:42 Oxygen NC 2 Byron Samy l/min Madhuri Ledbetter RN 10:14:53 Heparin Flush added 2 Byron Lyonsy used for Bag to bags Madhuri Ledbetter RN procedure (1000units/500ml field NS) 10:15:05 0.9% NaCl I.V. 100 Byron Buffie Per physician ml/hr Madhuri Kim RN 10:26:16 Fentanyl I.V. 100 Byron Lyonsy for sedation mcg Madhuri Ledbetter RN 10:26:24 Versed I.V. 2 mg Byron Samy for sedation Madhuri Ledbetter RN 10:31:47 Fentanyl I.V. 100 Byron Samy for sedation mcg Madhuri Ledbetter RN 10:31:50 Versed I.V. 2 mg Byron Samy for sedation Madhuri Ledbetter RN 10:37:34 Heparin Bolus I.V. 4000 Byronmikael Lyonsy for units Madhuri Ledbetter RN anticoagulation Procedure Log Time Note 9:34:15 Informed consent obtained and on chart 9:36:16 Admit Source: Other 9:36:54 Arrival Date: 04/05/2017 9:30:00 AM 9:37:09 Insurance Payor : Private health insurance 9:37:54 Patient Height : 69 inches 9:38:00 Patient Weight : 240 lbs 9:43:35 Lab Result : Hemoglobin 14.4 g/dl 9:43:35 Lab Result : Creatinine 0.8 mg/dl 9:43:35 Lab Result : BUN 9 mg/dl 9:43:51 PCI Cath Status : Elective 9:44:25 Denice Grace RT(R) sent for patient. Start room use. 9:44:26 Time tracking: Regular hours 9:44:31 Plan of Care:Hemodynamics will remain stable., Cardiac rhythm will remain stable., Comfort level will be maintained., Respiratory function will remain adequate., Patient/ family verbilizes understanding of procedure., Procedure tolerated without complication., Recovers from procedure without complications.. 9:58:53 Patient received from Pre/Post Procedure Room to CCL 2 Alert and oriented. Tansferred to table in Supine position. 10:07:05 Vital chart was started 10:07:46 Warm blankets applied, and paloma hugger turned on for patient comfort. 10:07:47 Correct patient and procedure confirmed by team. 10:07:47 ECG and BP/O2 sat monitors applied to patient. 10:07:53 Baseline sample Acquired. 10:08:10 Baseline sample Acquired. 10:08:14 Rhythm: sinus rhythm 10:08:15 Full Disclosure recording started 10:08:38 H&P Date Dictated: 04/03/2017 Within 30 days and on chart., H&P Addendum completed by physician on day of procedure. (MUST COMPLETE FOR ALL OUTPATIENTS). 10:08:39 Pre-procedure instructions explained to patient. 10:08:40 Pre-op teaching completed and patient verbalized understanding. 10:08:41 Family in waiting room. 10:08:43 Patient NPO since Midnight. 10:10:34 Patient allergic to Other allergySulfa, Rocephin, Imdur, Zofran, Phenergan 10:10:36 Is the patient allergic to Iodine/contrast media? No. 10:10:37 Was the patient premedicated? No 10:10:39 Is patient on blood thinner?Yes 10:10:41 ACC The patient was administered the following blood thiners within the last 24 hours: ACCPlavix 10:10:43 Patient diabetic? No. 10:10:46 Previous problem with sedation/anesthesia? No ? 10:10:48 Snore? No 10:10:49 Sleep apnea? No 10:10:50 Deviated septum? No 10:10:51 Opens mouth fully? Yes 10:10:52 Sticks out tongue? Yes 10:12:01 Airway obstruction? No ? 10:12:03 Dentures? No ? 10:12:07 Pre procedure: right dorsailis pedis pulse 2+ Normal; easily identifiable; not easily obliterated 10:12:09 Pre procedure: left dorsailis pedis pulse 2+ Normal; easily identifiable; not easily obliterated 10:12:13 Patient pain scale 0/10 ?. 10:12:29 IV patent on arrival in left forearm with 0.9% NaCl at [facility]. 10:12:41 Lab results completed and on chart. 10:12:45 Left groin area was prepped with chlora-prep and draped in sterile fashion 10:12:46 Alarms reviewed by R. N. 10:12:46 Sharps counted by scrub and verified by R.N. 10:14:42 Oxygen 2 l/min NC was administered by Samy Ledbetter RN; ; 10:14:53 Heparin Flush Bag (1000units/500ml NS) 2 bags added to field was administered by Samy Ledbetter RN; used for procedure; 10:15:05 0.9% NaCl 100 ml/hr I.V. was administered by James Kim RN; Per physician; 10:25:25 Physician arrived 10:25:25 --------ALL STOP TIME OUT------ 10:25:25 Final Timeout: patient, procedure, and site verified with staff and physician. All members of the team are in agreement. 10:25:30 Left groin site verified by team. 10:25:34 Physical assessment completed. ASA score P 2 - A patient with mild systemic disease as per Byron Dhaliwal MD. 10:25:40 Sedation plan: IV Moderate Sedation Medication:Versed, Fentanyl 10:25:52 Use device set Femoral PCI 10:25:55 ACIST: Syringe (52223) opened to sterile field. 10:25:55 ACIST: Hand Control (18355) opened to sterile field. 10:25:56 Bag Decanter (2001S) opened to sterile field. 10:25:56 Medline Cath Pack ([id number]) opened to sterile field. 10:25:57 Terumo 6Fr [place] Sheath opened to sterile field. 10:25:58 St Koko 260cm J .035 wire opened to sterile field. 10:25:58 INFLATOR: Merit BasixCompak Inflation Kit (AA9319) opened to sterile field. 10:25:58 ACIST: Manifold (11927) opened to sterile field. 10:25:59 Tegaderm 4 x 4 opened to sterile field. 10:26:16 Fentanyl 100 mcg I.V. was administered by Samy Ledbetter RN; for sedation; 10:26:24 Versed 2 mg I.V. was administered by Samy Ledbetter RN; for sedation; 10:26:24 Zero performed for pressure channel P1 10:29:45 Medtronic Launcher 6Fr AR 2.0 guide catheter opened to sterile field. 10:29:51 Hundred [place] IVUS Catheter opened to sterile field. 10:31:47 Fentanyl 100 mcg I.V. was administered by Samy Ledbetter RN; for sedation; 10:31:50 Versed 2 mg I.V. was administered by Samy Ledbetter RN; for sedation; 10:34:20 Procedure started. 10:34:26 Local anesthetic to left femerol artery with Lidocaine 2% by Byron Dhaliwal MD.INITIAL ACCESS ONLY 10:34:37 A 6 Fr Short sheath was inserted into the Left Femoral artery 10:35:41 A Diagnostic Infinity 5Fr JL 4.0 catheter was advanced over the wire and used for Left Coronary Angiography. 10:36:21 LCA angiography performed. 10:36:24 Injector settings: Ml/sec: 3, Volume: 6, 10:36:30 Catheter removed. 10:36:40 6 Fr ar 2 guide catheter was inserted over the wire 10:37:34 Heparin Bolus 4000 units I.V. was administered by Samy Ledbetter RN; for anticoagulation; 10:37:49 RCA angiography performed. 10:37:59 choice pt wire advanced. 10:38:02 Wire advanced across lesion. 10:39:48 IVUS catheter advanced over wire. 10:39:50 IVUS pass to RCA lesion performed. 10:40:10 IVUS catheter removed over wire. 10:42:19 Inflation Number: 1 A Gurley RX 2.5 x 15 stent was prepped and advanced across the Dist RCA. The stent was deployed at 13 JUSTIN for 0:10 (min:sec). 10:42:32 Inflation number: 2 The stent balloon was then re-inflated across the Dist RCA to 17 JUSTIN for 0:10 (min:sec). 10:43:31 Stent catheter was removed intact over wire. 10:43:59 Inflation Number: 1 A Gurley RX 3.5 x 18 stent was prepped and advanced across the Mid RCA. The stent was deployed at 17 JUSTIN for 0:10 (min:sec). 10:45:23 Stent catheter was removed intact over wire. 10:45:23 Wire removed. 10:45:24 Guide catheter removed. 10:45:33 Cordis 6Fr Exoseal opened to sterile field. 10:45:42 Sheath removed intact; hemostasis achieved with Exoseal to the Left Femoral artery. 10:45:44 Procedure ended.(Physican Out) 10:48:15 Fluoroscopy time 03.80 minutes. 10:48:29 Fluoroscopy dose: 598 mGy 10:48:29 Flurop Dose total: 598 10:48:35 Contrast amount:Isovue 300 76ml. 10:48:36 Sharps counted by scrub and verified by R.N. 10:48:38 Insertion/operative site no bleeding no hematoma. 10:48:41 Post-op/insertion site Left Femoral artery dressed using a 4 x 4 and Tegaderm. 10:48:44 Post procedure rhythm: unchanged. 10:48:46 Estimated blood loss: 5 ml 10:48:48 Post procedure instruction explained to patient.Patient verbalizes understanding. 10:48:48 Patient needs reinforcement of post procedure teaching. 10:49:05 Procedure type changed to Cath procedure, Diagnostic procedure, FFR/IVUS, Intra-Coronary IVUS Initial, PCI procedure, Coronary Stent, Coronary Stent Initial, Miscellaneous Procedures, Moderate Sedation up to 30 minutes 10:49:06 Procedure and supply charges have been captured, reviewed, submitted and are correct. 10:49:10 Procedure Complication : No complications 10:49:12 Vital chart was stopped 10:49:13 See physician's report for complete and final results. 10:49:15 Report given to Pre/Post Procedure Room. 10:49:17 Patient transfered to Pre/Post Procedure Room with Stretcher. 10:49:19 Procedure ended. 10:49:19 Full Disclosure recording stopped 10:49:33 ACC-PCI Only Patient was given prescriptions, or instructed by Byron Dhaliwal MD to start/continue the following medications upon discharge: Plavix 10:49:34 End room use (Document Last) Intervention Summary Intervention Notes Time ActionType Lesion and Equipment Action# Pressure Duration Attributes Used 10:42:19 Place stent Dist RCA Ramon RX 1 13 00:10 2.5 x 15 stent 10:42:32 Reinflate Dist RCA Ramon RX 2 17 00:10 stent 2.5 x 15 balloon stent 10:43:59 Place stent Mid RCA Gurley RX 1 17 00:10 3.5 x 18 stent Device Usage Item Name Manufacture Quantity Catalog Hospital Part Current Minim al Lot# / Number Charge Number Stock Stock Serial# Code ACIST: Acist 1 45977 083303 522283 440390 20 Syringe Medical (43372) Systems Inc ACIST: Hand Acist 1 34920 358342 664242 823834 5 Control INNJOY Travel (30503) Systems Inc Bag Microtek 1 2001S 572428 29360 427961 5 Decanter Medical Inc. (2001S) Medline Cardinal 1 [id number] 321529 90374 349926 5 Cath Pack 1bib ([id number]) Terumo 6Fr Terumo 1 GLM604 923925 330796 824837 [address] Koko 1 524301 601059 755104 276541 30 260cm J .035 wire INFLATOR: Nandi Proteins 1 IF3411 669860 275831 073294 15 ITN BasixCompak Inflation Kit (ET6323) ACIST: Acist 1 46155 841273 272209 096631 5 Manifold Medical (47625) Systems Inc Tegaderm 4 3M 1 1626W 548301 526774 283728 5 x 4 (1626W) Medtronic Medtronic 1 [id number] 435697 66282 245590 1 Launcher 6Fr AR 2.0 guide catheter Hundred Hundred 1 [id number] 199261 812024 336977 8 [place] IVUS Catheter Diagnostic Cardinal 1 [id number] 505721 981475 857424 10 Infinity Health 5Fr JL 4.0 catheter Gurley RX 2.5 Medtronic 1 [id number] 248654 7575242 647986 5 [id number] x 15 stent Ramon RX 3.5 Medtronic 1 [id number] 329547 3120501 083090 5 [id number] x 18 stent Cordis 6Fr Cardinal 1 EX600 057560 033818 852042 10 [facility] 1bib Signature Audit [place] Stage Time Signature Unsigned Intra-Procedure 04/05/2017 Denice Grace 10:49:59 AM RT(R) Signatures Monitor : Denice Grace RT Signature : Date : Time : [place] [id number] [facility] [place] [address]
[~2017-04-05 07:33] MED LIST changes: +NITRO-DUR0.1 MG TRANSDERM; +PRENATAL COMPLE1 TAB PO
[2017-04-05 08:22] VITALS: BP 115/69; Ht 175.3 cm; Wt 109.1 kg
[2017-04-05 08:47] LABS: BASOPHILS 0.1 % (0-2); EOSINOPHILS 0.1 % (0-7); HEMOGLOBIN 14.4 g/dL (12-16); IMMATURE GRANULOCYTES 0.1 % (0-5); MCH 29.6 pg (26.0-34.0); MCHC 32.7 g/dL (31.0-37.0); MCV 90.3 fL (80.0-100.0); MEAN PLATELET VOLUME 11.2 fL (7.4-10.4); MONOCYTES 8.3 % (2-11); NEUTROPHILS 57.4 % (40-80); PLATELET COUNT 261 10x3/uL (130-400); RBC 4.87 10x6/uL (4.00-5.40); WBC 6.8 10x3/uL (4.8-10.8)
[2017-04-05 09:04] LABS: CALC OSMOLALITY 277 mosm/kg (275-300); CARBON DIOXIDE 27.2 mmol/L (21.0-32.0); CHLORIDE - SERUM 104 mmol/L (98-107); CREATININE - SERUM 0.8 mg/dL (0.6-1.3); GLUCOSE 91 mg/dL (74-106); POTASSIUM - SERUM 3.8 mmol/L (3.5-5.1); SODIUM 140 mmol/L (136-145); UREA NITROGEN 9 mg/dL (7-18); eGFR NON AFRICAN AMERICAN 80 mL/min (90-120)
--- NOTE | 2017-04-05 11:15 | NUR ---
2L NC, NO RESP DISTRESS. LEFT GROIN 6F EXOSEAL CDI, NO BLEEDING OR HEMATOMA NOTED. NO C/O PAIN OR NAUSEA. VSS. FAMILY AT BEDSIDE, CALL LIGHT WITHIN REACH.
--- NOTE | 2017-04-05 11:45 | NUR ---
LEFT GROIN 6F EXOSEAL CDI, NO BLEEDING OR HEMATOMA NOTED. 2L NC, NO RESP DISTRESS. NO C/O PAIN OR NAUSEA. VSS. FAMILY AT BEDSIDE. WILL CONTINUE TO MONITOR CLOSELY.
--- NOTE | 2017-04-05 12:00 | NUR ---
RESTING QUIETLY WITH EYES CLOSED. LEFT GROIN 5F EXOSEAL CDI, NO BLEEDING OR HEMATOMA NOTED. 2L NC, NO RESP DISTRESS. NO C/O NAUSEA OR PAIN AT THIS TIME. VSS. CALL LIGHT WITHIN REACH.
--- NOTE | 2017-04-05 12:59 | NUR ---
LEFT GROIN 6F EXOSEAL CDI, NO BLEEDING OR HEMATOMA NOTED. 2L NC, NO RESP DISTRESS. DRINK AND SANDWICH TRAY GIVEN. NO C/O NAUSEA OR PAIN. VSS. WILL CONTINUE TO MONITOR.
--- NOTE | 2017-04-05 14:07 | NUR ---
HOB ELEVATED 30 DEGREES. LEFT GROIN 6F EXOSEAL CDI, NO BLEEDING OR HEMATOMA NOTED.
--- NOTE | 2017-04-05 14:29 | NUR ---
LEFT WRIST PIV D/C'D WITH CATHETER INTACT, BAND AID TO SITE. UP TO BEDSIDE TO GET DRESSED.
--- NOTE | 2017-04-05 14:35 | NUR ---
UP TO RESTROOM TO VOID.
--- NOTE | 2017-04-05 14:40 | NUR ---
DISCHARGE INSTRUCTIONS GIVEN, VERBALIZED UNDERSTANDING.
--- NOTE | 2017-04-05 14:45 | NUR ---
TAKEN OUT VIA WHEELCHAIR BY CATH LAUNDRY EQUIPMENT OPERATOR. LEFT FACILITY WITH FAMILY AND ALL PERSONAL BELONGINGS.
--- NOTE | 2017-04-18 12:14 | OP ---
PATIENT NAME: AMY RAPHAEL MEDICAL RECORD: [id number] :65 LOCATION:D.CAT ADMISSION DATE: SURGEON: DARLENE KAPLAN MD DATE OF OPERATION: 04/05/2017 DATE OF SERVICE: 04/05/2017 PROCEDURES: 1. PTCA stent RCA. 2. Selective coronary angiography. 3. Intravascular ultrasound. INDICATION: Angina and coronary artery disease. PROCEDURE IN DETAIL: After informed consent was obtained and after a detailed explanation of the risks, benefits as well as alternative therapies, the patient elected to proceed with angiogram and angioplasty. The left femoral area was prepped and draped in normal sterile fashion. Left femoral artery was cannulated via modified Seldinger technique with placement of 6-Polish sheath. All catheters exchanged through this sheath. FINDINGS: Left ventriculogram was not performed. SELECTIVE CORONARY ANGIOGRAPHY: 1. Left main showed no significant angiographic disease. 2. Left anterior descending has moderate irregularities, but no flow-limiting stenosis. 3. The left circumflex has a previously placed stent that is widely patent with no significant restenosis. 4. Right coronary has 2 areas of greater than 70% stenosis confirmed by intravascular ultrasound. PTCA STENT OF THE RIGHT CORONARY: The stent used was a 2.5 x 15 and a 3.5 x 18 both [place] stent. Result was 0% residual stenosis. OVERALL IMPRESSION: Successful percutaneous transluminal coronary angioplasty stent of the right coronary artery going from 75% to 80% initial stenosis times 2 to 0% residual. TRANSINT:[id number] Voice Confirmation ID: [id number] DOCUMENT ID: [id number] DARLENE AKPLAN MD at 1214 CC: [id number] DICTATION DATE: 04/05/17 1049 POWDER CORE TESTER: 04/05/17 1320 DEP CLI 04/05/17 [place] [address]
== END 2017-04-05 14:45 | disposition home or self-care (01) ==
LOC: D.CATH 07:33
PROVIDERS: Internal Medicine Interventional Cardiology
DX: I25.119 Atherosclerotic heart disease of native coronary artery with unspecified angina pectoris (principal); Z95.5 Presence of coronary angioplasty implant and graft; Z01.812 Encounter for preprocedural laboratory examination
CPT/HCPCS: 92978; C9600

== ENCOUNTER → 2017-04-12 13:28 | Outpatient (CLI) | payer OTHER ==
[2017-04-05 08:22] VITALS: BMI 35.5
== END | disposition home or self-care (01) ==
LOC: D.US 13:28
DX: M79.605 Pain in left leg (principal); M79.604 Pain in right leg

== ENCOUNTER → 2017-08-16 12:23 | Outpatient (CLI) | payer OTHER ==
[2017-04-05 08:22] VITALS: BMI 35.5
[2017-08-16 12:53] LABS: BASOPHILS 0.4 % (0-2); EOSINOPHILS 1.1 % (0-7); HEMATOCRIT 42.2 % (36.0-48.0); HEMOGLOBIN 13.8 g/dL (12-16); IMMATURE GRANULOCYTES 0.2 % (0-5); LYMPHOCYTES 29.1 % (15-50); MCH 29.2 pg (26.0-34.0); MCHC 32.7 g/dL (31.0-37.0); MCV 89.2 fL (80.0-100.0); MEAN PLATELET VOLUME 10.8 fL (7.4-10.4); MONOCYTES 7.8 % (2-11); NEUTROPHILS 61.4 % (40-80); PLATELET COUNT 273 10x3/uL (130-400); RBC 4.73 10x6/uL (4.00-5.40); RDW 13.9 % (11.5-14.5); WBC 8.9 10x3/uL (4.8-10.8)
[2017-08-16 13:32] LABS: ALBUMIN 3.6 g/dL (3.4-5.0); BILIRUBIN - TOTAL 0.44 mg/dL (0.2-1.3); CALCIUM 8.8 mg/dL (8.5-10.1); CARBON DIOXIDE 25.9 mmol/L (21.0-32.0); CHOL - HDL RATIO 2.3 ratio (2.3-4.1); CREATININE - SERUM 0.9 mg/dL (0.6-1.3); POTASSIUM - SERUM 3.9 mmol/L (3.5-5.1); PROTEIN - SERUM 7.1 g/dL (6.4-8.2)
== END | disposition home or self-care (01) ==
LOC: D.LAB 12:23
PROVIDERS: Family Medicine
DX: M25.552 Pain in left hip (principal); M25.551 Pain in right hip

== ENCOUNTER 2018-02-05 09:13 | Outpatient (CLI) | payer OTHER ==
[~2018-02-05] VITALS: Ht 175.3 cm; Wt 104.5 kg
--- NOTE | ~2018-02-05 | OP ---
PATIENT NAME: AMY RAPHAEL MEDICAL RECORD: [id number] :65 LOCATION:D.CAT ADMISSION DATE: SURGEON: DARLENE KAPLAN MD DATE OF OPERATION: 02/05/2018 PROCEDURES: 1. PTCA stent left circumflex. 2. Left heart catheterization. 3. Selective coronary angiography. 4. Left ventriculogram. INDICATION: Angina and coronary artery disease. PROCEDURE PERFORMED: After informed consent was obtained and after a detailed description of risks, benefits as well as alternative therapies, the patient elected to proceed with angiogram and angioplasty. The left femoral area was prepped and draped in normal sterile fashion. Left femoral artery was cannulated via modified Seldinger technique with placement of 6-[place] sheath. All catheters exchanged through this sheath. FINDINGS: Left ventriculogram was performed in standard 30-degree RIVERA view, reveals good cardiac wall motion throughout all segments. Overall ejection fraction estimated 60%. SELECTIVE CORONARY ANGIOGRAPHY: 1. Left main is with no significant angiographic disease. 2. Left anterior descending has previously placed stents, these are widely patent with no significant restenosis. No disease elsewhere throughout the LAD or its branches. 3. Left circumflex has previously placed stents, these are widely patent; however, there is greater than 80% stenosis at the ostium of the circumflex. 4. Right coronary artery has moderate irregularities, but no flow-limiting stenosis. PTCA STENT OF THE LEFT CIRCUMFLEX OSTIUM: The stent used was a 3.5 x 8 mm [place]. Result was 0% residual stenosis. OVERALL IMPRESSION: Successful percutaneous transluminal coronary angioplasty stent of the left circumflex going from 80% initial stenosis to 0% residual. TRANSINT:[id number] Voice Confirmation ID: [id number] DOCUMENT ID: [id number] DARLENE KALPAN MD at 0934 CC: [id number] DICTATION DATE: 02/05/18 1210 INSURANCE AGENT: 02/05/18 1505 [facility] CLI 02/05/[address] [address]
--- NOTE | ~2018-02-05 | HEMODYNAMI ---
PATIENT:AMY RAPHAEL MEDICAL RECORD: [id number] : 65 LOCATION:[facility] ADMISSION DATE: 02/05/18 Generatedon:02/05/201811:32 Patient name: AMY RAPHAEL Patient #: [id number] SSN: [id number] : 1965 Date of study: 02/05/2018 Page: Of Hemodynamic Procedure Report Patient Data Patient Demographics Procedure consent was obtained First Name: AMY Gender: Female Last Name: DONAVON : 1965 [facility] Initial: MARNIE Age: 52 year(s) Patient #: [id number] Race: SSN: [id number] Additional ID: [id number] Contact details [address]: [address] [place] [address] rd State: [place] City: [place] Zip code: [address] Past Medical History Allergies Allergen Reaction Date Comments Reported Other allergy 08/24/2016 Sulfa, Zofran, phenergan, Rocephin. Other allergy 04/05/2017 Sulfa, Rocephin, Imdur, Zofran, Phenergan Admission Admission Data Admission Date: 02/05/2018 Admission Time: 9:13 Admit Source: Other Insurance Payor: Private health insurance Height (in.): 69 BSA: 2.19 (m2) Height (cm.): 175.26 BMI: 33.96 (kg/m2) Weight (lbs.): 230 Weight (kg.): 104.33 Procedure Procedure Types Cath Procedure Diagnostic Procedure C [facility] w/Coronaries PCI Procedure Coronary Stent Coronary Stent Initial Procedure Description Procedure Date Procedure Date: 02/05/2018 Procedure Start Time: 11:17 Procedure End Time: 11:30 Procedure Staff Name Function Byron Dhaliwal MD Performing Physician Denice Grace RT Monitor Yasemin Dolan RT Scrub Trenton Kaiser RN Nurse Procedure Data Cath Procedure Fluoroscopy Diagnostic fluoroscopy Total fluoroscopy Time: 2.4 time: 2.4 min min Diagnostic fluoroscopy Total fluoroscopy dose: dose: 0.01 mGy 0.01 mGy Contrast Material Contrast Material Type Amount (ml) Isovue 300 63 Entry Location Entry Primary Successful Side Size Upsize Upsize Entry Closure Succes sful Closure Location (Fr) 1 (Fr) 2 (Fr) Remarks Device Remarks Femoral Left 5 Fr 6 Fr Exoseal artery Short Estimated blood loss: 5 ml Diagnostic catheters Device Type Used For End Catheter Placement MULTIPACK Pigtail 5 Fr LV Angiography catheter MULTIPACK JL 4.0 5Fr Left Coronary catheter Angiography MULTIPACK 3DRC 5Fr Right Coronary catheter Angiography Procedure Complications No complications Procedure Medications Medication Administration Route Dosage 0.9% NaCl I.V. 100 ml/hr Oxygen etCO2 Nasal cannula 2 l/min Heparin Flush Bag added to field 2 bags (1000units/500ml NS) Lidocaine 2% added to field 20 Compazine I.V. 10 mg Versed I.V. 2 mg Fentanyl I.V. 100 mcg Versed I.V. 2 mg Fentanyl I.V. 100 mcg Versed I.V. 1 mg Heparin Bolus I.V. 4000 units Versed I.V. 1 mg Hemodynamics Rest BSA: 2.19 (m2) O2 Consumption: Estimated: 216.48 (ml/min) O2 Consumption indexed : Estimated:98.85 (ml/min/m) Heart Rate: 74 (bpm) Snapshots Pre Cath Intra NCS Post Cath Vital Signs Time Heart Resp SPO2 etCO2 NIBP (mmHg) Rhythm Pain Sedation Rate (ipm) (%) (mmHg) Status Level (bpm) 11:02:04 71 19 96 0 150/93(119) NSR 0 (11) 10(A) , No pain 11:06:20 73 18 95 0 138/82(98) NSR 0 (11) 10(A) , No pain 11:10:34 68 21 93 0 129/74(99) NSR 0 (11) 10(A) , No pain 11:14:44 65 20 93 28.6 126/77(103) NSR 0 (11) 10(A) , No pain 11:19:33 69 19 94 33.9 136/81(126) NSR 0 (11) 9(A) , No pain 11:23:45 67 17 87 39.2 125/78(104) NSR 0 (11) 10(A) , No pain 11:27:53 70 17 88 39.2 126/79(113) NSR 0 (11) 9(A) , No pain Medications Time Medication Route Dose Verified Delivered Reason Notes Effectiveness by by 11:07:06 0.9% NaCl I.V. 100 Trenton Trenton Per physician ml/hr Awilda Kaiser RN RN 11:07:15 Oxygen etCO2 2 Trenton Trenton Per physician Nasal l/min Awilda Kaiser cannula RN RN 11:07:25 Heparin Flush added 2 Trenton Trenton used for Bag to bags Awilda Kaiser procedure (1000units/500ml field RN RN NS) 11:07:37 Lidocaine 2% added 20ml Trenton Trenton for local to vial Lorarmando Kaiser anesthetic field RN RN 11:08:01 Compazine I.V. 10 mg Trenton Trenton for nausea Awilda Kaiser RN RN 11:19:03 Versed I.V. 2 mg Trenton Trenton for sedation Awilda Kaiser RN RN 11:19:13 Fentanyl I.V. 100 Trenton Trenton for sedation mcg Awilda Kaiser RN RN 11:20:18 Versed I.V. 2 mg Trenton Trenton for sedation Awilda Kaiser RN RN 11:20:25 Fentanyl I.V. 100 Trenton Trenton for sedation mcg Awilda Kaiser RN RN 11:24:07 Versed I.V. 1 mg Trenton Trenton for sedation Awilda Kaiser RN RN 11:26:26 Heparin Bolus I.V. 4000 Trenton Trenton for units Awilda carlson RN RN 11:29:01 Versed I.V. 1 mg Trenton Trenton for sedation Awilda Kaiser RN machine wiper Log Time Note 10:53:21 Trenton Kaiser RN sent for patient. Start room use. 10:53:22 Time tracking: Regular hours (M-F 7:00 - 5:00) 10:53:26 Plan of Care:Hemodynamics will remain stable., Cardiac rhythm will remain stable., Comfort level will be maintained., Respiratory function will remain adequate., Patient/ family verbilizes understanding of procedure., Procedure tolerated without complication., Recovers from procedure without complications.. 10:55:36 Patient received from Pre/Post Procedure Room to [facility] 2 Alert and oriented. Tansferred to table in Supine position. 10:55:47 Warm blankets applied, and paloma hugger turned on for patient comfort. 10:55:48 Correct patient and procedure confirmed by team. 10:55:54 Signed procedure consent form obtained from patient. 10:55:55 ECG and BP/O2 sat monitors applied to patient. 11:00:59 Vital chart was started 11:01:00 Baseline sample Acquired. 11:01:05 Rhythm: sinus rhythm 11:01:06 Full Disclosure recording started 11::27 H&P Date Dictated: 02/01/2018 Within 30 days and on chart., H&P Addendum completed by physician on day of procedure. (MUST COMPLETE FOR ALL OUTPATIENTS). 11:01:27 Pre-procedure instructions explained to patient. 11:01:28 Pre-op teaching completed and patient verbalized understanding. 11:01:30 Family in patients room. 11:01:31 Patient NPO since Midnight. 11:01:33 Is the patient allergic to Iodine/contrast media? No. 11:01:42 Is patient on blood thinner?Yes 11:01:45 ACC The patient was administered the following blood thiners within the last 24 hours: ACCPlavix 11:01:47 Patient diabetic? No. 11:01:50 Previous problem with sedation/anesthesia? No ? 11:01:50 Snore? Yes 11:01:51 Sleep apnea? No 11:01:52 Deviated septum? No 11:01:53 Opens mouth fully? Yes 11:01:53 Sticks out tongue? Yes 11:01:55 Airway obstruction? No ? 11:01:58 Dentures? Yes OUT 11:02:02 Pre procedure: left dorsailis pedis pulse 1+ Palpable, but thready & weak; easily obliterated 11:02:05 Patient pain scale 0/10 ?. 11:02:11 IV patent on arrival in left forearm with 0.9% NaCl at O. 11:02:12 Lab results completed and on chart. 11:02:16 Left groin area was prepped with chlora-prep and draped in sterile fashion 11:02:17 Alarms reviewed by R. N. 11:02:17 Sharps counted by scrub and verified by R.N. 11:06:09 Admit Source: Other 11:06:17 Patient Height : 69 inches 11:06:24 Patient Weight : 230 lbs 11:06:34 Insurance Payor : Private health insurance 11:07:06 0.9% NaCl 100 ml/hr I.V. was administered by Trenton Kaiser RN; Per physician; 11:07:15 Oxygen 2 l/min etCO2 Nasal cannula was administered by Trenton Kaiser RN; Per physician; 11:07:25 Heparin Flush Bag (1000units/500ml NS) 2 bags added to field was administered by Trenton Kaiser RN; used for procedure; 11:07:37 Lidocaine 2% 20ml vial added to field was administered by Trenton Kaiser RN; for local anesthetic; 11:08:01 Compazine 10 mg I.V. was administered by Trenton Kaiser RN; for nausea; 11:10:17 Physician arrived 11::17 --------ALL STOP TIME OUT------ 11:10:18 Final Timeout: patient, procedure, and site verified with staff and physician. All members of the team are in agreement. 11:10:21 Left groin site verified by team. 11:10:25 Physical assessment completed. ASA score P 2 - A patient with mild systemic disease as per Byron Dhaliwal MD. 11:10:28 Sedation plan: IV Moderate Sedation Medication:Versed, Fentanyl 11:10:46 Use device set Femoral Dx 11:10:48 ACIST Syringe (94197) opened to sterile field. 11:10:48 Bag Decanter (2002) opened to sterile field. 11:10:49 Medline Cath Pack ([id number]) opened to sterile field. 11:10:49 DIAGNOSTIC WIRE .035 260cm J wire (384757) opened to sterile field. 11:10:50 ACIST Hand Control (74154) opened to sterile field. 11:10:51 ACIST Manifold (49893) opened to sterile field. 11:10:51 DIAGNOSTIC Multipack 5Fr catheter set (DY8667) opened to sterile field. 11:10:52 Tegaderm 4 x 4 (1626W) opened to sterile field. 11:10:53 SHEATH Prelude 5Fr 0.035 (VQB-3A-57-035) opened to sterile field. 11:13:49 Zero performed for pressure channel P1 11:16:53 Procedure started. 11:17:01 Local anesthetic to left femerol artery with Lidocaine 2% by Byron Dhaliwal MD.INITIAL ACCESS ONLY 11:17:12 A 5 Fr sheath was inserted into the Left Femoral artery 11:18:39 A MULTIPACK Pigtail 5 Fr catheter was advanced over the wire and used for LV Angiography. 11:19:03 Versed 2 mg I.V. was administered by Trenton Kaiser RN; for sedation; 11:19:13 Fentanyl 100 mcg I.V. was administered by Trenton Kaiser RN; for sedation; 11:20:11 LV hemodynamics recorded. 11:20:15 LV gram done using RIVERA 11::17 Injector settings: Ml/sec: 5, Volume: 15, 11:20:18 Versed 2 mg I.V. was administered by Trenton Kaiser RN; for sedation; 11:20:24 EF : 55 % 11:20:25 Fentanyl 100 mcg I.V. was administered by Trenton Kaiser RN; for sedation; 11:20:25 Catheter removed. 11:20:34 A MULTIPACK JL 4.0 5Fr catheter was advanced over the wire and used for Left Coronary Angiography. 11:21:41 LCA angiography performed. 11:21:44 Injector settings: Ml/sec: 3, Volume: 6, 11:22:13 Catheter removed. 11:22:19 A MULTIPACK 3DRC 5Fr catheter was advanced over the wire and used for Right Coronary Angiography. 11:23:07 RCA angiography performed. 11:23:39 Injector settings: Ml/sec: 3, Volume: 6, 11:23:41 Catheter removed. 11:23:42 Proceeding to intervention. 11:24:07 Versed 1 mg I.V. was administered by Trenton Kaiser RN; for sedation; 11:24:12 GUIDE 6FR XBLAD 4.0 catheter ([id number]) opened to sterile field. 11:24:13 CHOICE PT Extra Support 182cm wire ([id number]) opened to sterile field. 11:24:14 INFLATOR Merit BasixCompak (WJ7531) opened to sterile field. 11:24:14 SHEATH Prelude 6Fr 0.035 (LDZ-5Y-60-035) opened to sterile field. 11:24:25 Sheath upsized to a 6 Fr Short. 11:24:32 6 Fr xblad 4 guide catheter was inserted over the wire 11:24:36 choice pt wire advanced. 11:25:32 Wire advanced across lesion. 11::26 Heparin Bolus 4000 units I.V. was administered by Trenton Kaiser RN; for anticoagulation; 11::09 Place stent Inflation Number: 1 A BHARAT RX 3.5 x 08 stent ([id number]) was prepped and advanced across the Prox CX. The stent was deployed at 17 JUSTIN for 0:10 (min:sec). 11::36 Stent catheter was removed intact over wire. 11:27:37 Wire removed. 11:27:37 Guide catheter removed. 11:27:43 EXOSEAL 6Fr (EX600) opened to sterile field. 11:28:35 Sheath removed intact; hemostasis achieved with Exoseal to the Left Femoral artery. 11:28:39 Procedure ended.(Physican Out) 11:28:48 Fluoroscopy time 02.40 minutes. 11::53 Fluoroscopy dose: 0.01 mGy 11::53 Flurop Dose total: 0.01 11::58 Contrast amount:Isovue 300 63ml. 11::59 Sharps counted by scrub and verified by R.N. 11:29:01 Versed 1 mg I.V. was administered by Trenton Kaiser RN; for sedation; 11:29:01 Insertion/operative site no bleeding no hematoma. 11:29:03 Post-op/insertion site Left Femoral artery dressed using a 4 x 4 and Tegaderm. 11:29:07 Post left femerol artery:stable 11:29:09 Post Procedure Pulses reassessed and unchanged 11:29:11 Post procedure rhythm: unchanged. 11:29:16 Estimated blood loss: 5 ml 11:29:18 Post procedure instruction explained to patient.Patient verbalizes understanding. 11:29:18 Patient needs reinforcement of post procedure teaching. 11:29:52 Procedure type changed to Cath procedure, Diagnostic procedure, LHC, LHC w/Coronaries, PCI procedure, Coronary Stent, Coronary Stent Initial 11::53 Procedure and supply charges have been captured, reviewed, submitted and are correct. 11:29:57 Procedure Complication : No complications 11:29:59 Vital chart was stopped 11:30:00 See physician's report for complete and final results. 11:30:02 Report given to Pre/Post Procedure Room. 11:30:08 Patient transfered to Pre/Post Procedure Room with Stretcher. 11:30:11 Procedure ended. 11:30:11 Full Disclosure recording stopped 11:30:19 ACC-PCI Only Patient was given prescriptions, or instructed by Byron Dhaliwal MD to start/continue the following medications upon discharge: Plavix 11:30:21 End room use (Document Last) Intervention Summary Intervention Notes Time ActionType Lesion and Equipment Used Action# Pressure Duration Attributes 11:27:[address] stent Prox CX BHARAT RX 3.5 x 1 17 00:10 08 stent ([id number]) Device Usage Item Name Manufacture Quantity Catalog Number Hospital Part Current Minimal Lot# / Charge Number Stock Stock Serial# Code ACIST Syringe Acist 1 90323 084624 236134 246034 20 (12329) Medical Systems Inc Bag Decanter Microtek 1 2001S 133644 10441 792242 5 (2001S) Medical Inc. Medline Cath Cardinal 1 [id number] 933619 94566 722372 5 Placester Health ([id number]) DIAGNOSTIC WIRE St Koko 1 287776 145033 749655 168220 30 .035 260cm J wire (836877) ACIST Hand Acist 1 46787 177661 134286 694987 5 Control (50437) Medical Systems Inc ACIST Manifold Acist 1 64461 036779 038729 963018 5 (01804) Medical Systems Inc DIAGNOSTIC Cardinal 1 [id number] 034973 86719 573580 30 Multipack 5Fr Health catheter set (ZE6929) Tegaderm 4 x 4 3M 1 1626W 268295 841139 580110 5 (1626W) SHEATH Prelude Merit 1 WKE-7G-71-035 367224 387078 333039 5 5Fr 0.035 Medical (XPD-6D-54-035) MULTIPACK Cardinal 1 473973 5 Pigtail 5 Fr Health catheter MULTIPACK JL Cardinal 1 188410 5 4.0 5Fr Health catheter MULTIPACK 3DRC Cardinal 1 253111 5 5Fr catheter Health GUIDE 6FR XBLAD Cardinal 1 [id number] 785625 518081 014922 3 4.0 catheter Health ([id number]) CHOICE PT Extra [place] 1 [id number] 583894 453060 903406 5 Support 182cm Scientific wire ([id number]) INFLATOR Merit Merit 1 UQ7585 990212 326943 958382 15 BasixCompak Medical (OP9518) SHEATH Prelude Merit 1 GHT-0F-55-35 968319 1243848 246338 5 6Fr 0.035 Medical (EOR-7M-80035) BHARAT RX 3.5 x Medtronic 1 [id number] 181652 9102812 483106 5 [id number] 08 stent ([id number]) EXOSEAL 6Fr Cardinal 1 EX600 373389 705644 134781 10 (EX600) Health Signature Audit [place] Stage Time Signature Unsigned Intra-Procedure 02/05/2018 Denice Grace 11:32:39 AM RT(R) Signatures Monitor : Denice Grace RT Signature : Date : Time : [address] [place] [address]
[2018-02-05 09:36] VITALS: BP 165/84; Ht 175.3 cm; Wt 104.5 kg
[2018-02-05 09:56] LABS: BASOPHILS 0.5 % (0-2); EOSINOPHILS 2.2 % (0-7); HEMATOCRIT 41.4 % (36.0-48.0); HEMOGLOBIN 13.6 g/dL (12-16); IMMATURE GRANULOCYTES 0.2 % (0-5); LYMPHOCYTES 34.5 % (15-50); MCH 29.3 pg (26.0-34.0); MCHC 32.9 g/dL (31.0-37.0); MCV 89.2 fL (80.0-100.0); MEAN PLATELET VOLUME 10.7 fL (7.4-10.4); MONOCYTES 8.9 % (2-11); NEUTROPHILS 53.7 % (40-80); PLATELET COUNT 257 10x3/uL (130-400); RBC 4.64 10x6/uL (4.00-5.40); RDW 14.1 % (11.5-14.5); WBC 6.3 10x3/uL (4.8-10.8)
[2018-02-05 10:18] LABS: CALC OSMOLALITY 285 mosm/kg (275-300); CALCIUM 8.8 mg/dL (8.5-10.1); CARBON DIOXIDE 28.2 mmol/L (21.0-32.0); CHLORIDE - SERUM 108 mmol/L (98-107); CREATININE - SERUM 0.8 mg/dL (0.6-1.3); GLUCOSE 100 mg/dL (74-106); POTASSIUM - SERUM 4.5 mmol/L (3.5-5.1); SODIUM 144 mmol/L (136-145); UREA NITROGEN 11 mg/dL (7-18); eGFR NON AFRICAN AMERICAN 80 mL/min (90-120)
[2018-02-05 10:19] LABS: HCG SERUM NEGATIVE (NEGATIVE)
== END 2018-02-05 15:28 | disposition home or self-care (01) ==
LOC: D.CATH 09:13
PROVIDERS: Internal Medicine Interventional Cardiology
DX: I25.119 Atherosclerotic heart disease of native coronary artery with unspecified angina pectoris (principal); Z01.812 Encounter for preprocedural laboratory examination

== ENCOUNTER → 2018-11-15 09:23 | Outpatient (CLI) | payer OTHER ==
[2018-09-07 10:30] VITALS: BMI 32.5
[~2018-11-15 09:23] MED LIST changes: +LISINOPRIL10 MG PO; +PRAVACHOL40 MG PO; +VITAMIN B-121000 MCG PO
[2018-11-15 10:16] LABS: APPEARANCE CLEAR (CLEAR); BILIRUBIN NEGATIVE (NEGATIVE); COLOR YELLOW (YELLOW); GLUCOSE NEGATIVE (NEGATIVE); KETONE NEGATIVE (NEGATIVE); NITRITE NEGATIVE (NEGATIVE); PROTEIN NEGATIVE (NEGATIVE); UROBILINOGEN NORMAL (NORMAL)
== END | disposition home or self-care (01) ==
LOC: D.LAB 09:23
PROVIDERS: ATTEND Family Medicine
DX: R32 Unspecified urinary incontinence (principal); M54.5 Low back pain

== ENCOUNTER 2018-11-24 20:41 | Inpatient (IN) | payer OTHER ==
[~2018-11-24] VITALS: Ht 175.3 cm; Wt 96.2 kg
[2018-11-24] MEDS ORDERED: ABILIFY2 MG PO (21:05)
[2018-11-24 21:39] LABS: BASOPHILS 0 % (0-2); EOSINOPHILS 0.3 % (0-7); HEMATOCRIT 44.6 % (36.0-48.0); HEMOGLOBIN 15.3 g/dL (12-16); IMMATURE GRANULOCYTES 0.6 % (0-5); LYMPHOCYTES 4.9 % (15-50); MCH 29.3 pg (26.0-34.0); MCHC 34.3 g/dL (31.0-37.0); MCV 85.3 fL (80.0-100.0); MEAN PLATELET VOLUME 10.7 fL (7.4-10.4); NEUTROPHILS 87.2 % (40-80); RBC 5.23 10x6/uL (4.00-5.40); RDW 13.8 % (11.5-14.5); WBC 11.6 10x3/uL (4.8-10.8)
[2018-11-24 21:42] LABS: PLATELET COUNT 213 10x3/uL (130-400)
[2018-11-24 21:52] LABS: ALBUMIN 2.9 g/dL (3.4-5.0); ANION GAP 13.6 mmol/L (8-16); BILIRUBIN - TOTAL 0.4 mg/dL (0.2-1.3); CALCIUM 8.3 mg/dL (8.5-10.1); CARBON DIOXIDE 22.8 mmol/L (21.0-32.0); PROTEIN - SERUM 6.5 g/dL (6.4-8.2)
[2018-11-24 21:53] LABS: POTASSIUM - SERUM 2.4 mmol/L (3.5-5.1)
[2018-11-24 22:00] VITALS: BP 142/91
[2018-11-24 22:15] LABS: AMYLASE - SERUM 14 U/L (25-115); CKMB 0.7 U/L (0.0-3.6); CREATINE KINASE 212 UL (21-215); LIPASE 91 U/L (73-393)
[2018-11-24 22:20] LABS: C-REACTIVE PROTEIN 27.9 mg/dL (0.0-0.9); TROPONIN-I < 0.017 ng/mL (0.000-0.060)
[2018-11-24 23:11] VITALS: BP 148/82
[2018-11-24 23:31] LABS: APPEARANCE HAZY (CLEAR); BILIRUBIN NEGATIVE (NEGATIVE); COLOR YELLOW (YELLOW); GLUCOSE NEGATIVE (NEGATIVE); KETONE NEGATIVE (NEGATIVE); NITRITE NEGATIVE (NEGATIVE); PROTEIN 3+ mg/dL (NEGATIVE); UROBILINOGEN NORMAL (NORMAL)
[2018-11-24 23:33] LABS: BACTERIA FEW /hpf (NONE SEEN); EPITHELIAL CELLS 0-5 /hpf (0-5); HYALINE CAST 0-5 /lpf (NONE SEEN); MUCUS <1+ /lpf (NONE SEEN); RED CELLS - URINE 0-5 /hpf (0-5); WHITE CELLS - URINE 0-5 /hpf (0-5)
[2018-11-25 00:06] VITALS: BP 138/77
[2018-11-25 02:11] VITALS: BMI 31.3
[2018-11-25] MEDS ORDERED: LIDODERM 5 %1 PATCH (02:28)
[2018-11-25 05:45] VITALS: BP 128/74
[2018-11-25 08:44] VITALS: BP 133/74
[2018-11-25 12:59] VITALS: BP 118/71
[2018-11-25 18:03] VITALS: BP 115/54
[2018-11-25 20:00] VITALS: BP 113/64
[2018-11-26 04:00] VITALS: BP 119/63
[2018-11-26 05:45] LABS: ALBUMIN 2.3 g/dL (3.4-5.0); ALKALINE PHOSPHATASE 62 U/L (46-116); BILIRUBIN - TOTAL 0.31 mg/dL (0.2-1.3); CALCIUM 7.9 mg/dL (8.5-10.1); CARBON DIOXIDE 23.1 mmol/L (21.0-32.0); CHLORIDE - SERUM 110 mmol/L (98-107); PROTEIN - SERUM 5.3 g/dL (6.4-8.2); SODIUM 144 mmol/L (136-145)
[2018-11-26 05:49] LABS: ALT (SGPT) 21 U/L (10-68); CALC OSMOLALITY 287 mosm/kg (275-300); CREATININE - SERUM 0.7 mg/dL (0.6-1.3); GLUCOSE 110 mg/dL (74-106); POTASSIUM - SERUM 1.8 mmol/L (3.5-5.1); UREA NITROGEN 13 mg/dL (7-18); eGFR NON AFRICAN AMERICAN > 90 mL/min (90-120)
[2018-11-26 06:24] LABS: BASOPHILS 0.1 % (0-2); EOSINOPHILS 0.1 % (0-7); HEMOGLOBIN 12.5 g/dL (12-16); IMMATURE GRANULOCYTES 0.3 % (0-5); LYMPHOCYTES 9.6 % (15-50); MCH 28.5 pg (26.0-34.0); MCHC 34.7 g/dL (31.0-37.0); MEAN PLATELET VOLUME 11.4 fL (7.4-10.4); MONOCYTES 9.2 % (2-11); NEUTROPHILS 80.7 % (40-80); PLATELET COUNT 205 10x3/uL (130-400); RBC 4.39 10x6/uL (4.00-5.40); RDW 13.8 % (11.5-14.5); WBC 8.7 10x3/uL (4.8-10.8)
[2018-11-26 08:15] VITALS: BP 129/72
[2018-11-26 12:15] VITALS: BP 120/65
[2018-11-26 13:52] VITALS: Ht 175.3 cm; Wt 96.2 kg
[2018-11-26 16:58] VITALS: BP 123/77
[2018-11-26 20:19] VITALS: BP 106/67
[2018-11-27 04:31] VITALS: BP 96/46
[2018-11-27 06:29] LABS: BASOPHILS 0.3 % (0-2); EOSINOPHILS 0.8 % (0-7); HEMATOCRIT 33.3 % (36.0-48.0); HEMOGLOBIN 11.8 g/dL (12-16); IMMATURE GRANULOCYTES 0.6 % (0-5); LYMPHOCYTES 17.7 % (15-50); MCH 28.1 pg (26.0-34.0); MCHC 35.4 g/dL (31.0-37.0); MEAN PLATELET VOLUME 10.8 fL (7.4-10.4); NEUTROPHILS 71.6 % (40-80); PLATELET COUNT 198 10x3/uL (130-400); RDW 13.9 % (11.5-14.5); WBC 8.9 10x3/uL (4.8-10.8)
[2018-11-27 06:37] LABS: MCV 79.3 fL (80.0-100.0)
[2018-11-27 06:59] LABS: ALBUMIN 2.2 g/dL (3.4-5.0); ALKALINE PHOSPHATASE 60 U/L (46-116); ALT (SGPT) 22 U/L (10-68); BILIRUBIN - TOTAL 0.32 mg/dL (0.2-1.3); CALCIUM 7.5 mg/dL (8.5-10.1); CARBON DIOXIDE 23.8 mmol/L (21.0-32.0); CHLORIDE - SERUM 111 mmol/L (98-107); CREATININE - SERUM 0.7 mg/dL (0.6-1.3); GLUCOSE 87 mg/dL (74-106); MAGNESIUM - SERUM 1.8 mg/dL (1.8-2.4); PROTEIN - SERUM 4.8 g/dL (6.4-8.2); SODIUM 144 mmol/L (136-145); eGFR NON AFRICAN AMERICAN > 90 mL/min (90-120)
[2018-11-27 07:11] LABS: CALC OSMOLALITY 284 mosm/kg (275-300); UREA NITROGEN 9 mg/dL (7-18)
[2018-11-27 07:13] LABS: PHOSPHOROUS 0.9 mg/dL (2.5-4.9); POTASSIUM - SERUM 1.8 mmol/L (3.5-5.1)
[2018-11-27 08:32] VITALS: BP 127/74
[2018-11-27 13:15] VITALS: BP 115/75
--- NOTE | 2018-11-27 15:07 | MORECARE ---
CASE MANAGEMENT DISCHARGE SUMMARY PATIENT: AMY RAPHAEL UNIT: [id number] ADM DATE: 11/25/18 AGE: 53 : 65 SEX: F ROOM/BED: D.2238 AUTHOR: MELISSA STONE PHYSICIAN: REFERRING PHYSICIAN: JACQUES JOSHI MD DATE OF SERVICE: 11/27/18 Discharge Plan Patient Name: AMY RAPHAEL Facility: [facility]:[place] : 1965 Planned Disposition: Home Anticipated Discharge Date: Discharge Date: Expected LOS: Initial Reviewer: [email or web address] Initial Review Date: 11/27/2018 Generated: 11/27/18 4:07 pm Comments DCP- Discharge Planning Updated by [email or web address]: Keri Martinez on 11/27/18 2:[address] Patient Name: AMY RAPHAEL Admission Status: ER Accout number: [id number] Admission Date: 11-25-2018 : 1965 Admission Diagnosis: Attending: JACQUES JOSHI Current LOS: 2 Anticipated DC Date: Planned Disposition: Home Primary Insurance: Discharge Planning Comments: CM met with patient to complete initial dc planning assessment. I was asked by patient's friend (Stefani) to meet with them. Another case management rn had entered the room, but left before she could do the assessment. CM educated patient on the CM role and verbal consent given by patient to complete assessment. Patient lives at home alone. Patient is very drowsy and answers questions slowly. Her friend states that she is completely independent with all ADL's and AIDL's. Stefani states that she lives right across the street from her and they help each other out. CM discussed availability of home health, rehab services, and medical equipment. Patient denied known discharge needs at this time. Stefani states that if Dr. Joshi feels she needs psychiatric care, that the patient may consider going to [facility]. CM will continue to follow and will assist as needed with dc plans/needs. Rehabilitation Services Director: Keri Martinez DCPIA - Discharge Planning Initial Assessment Updated by [email or web address]: Keri Martinez on 11/27/18 3:01 pm * Is the patient Alert and Oriented? No * How many steps to enter\exit or inside your home? 5/0 * PCP Dr. Joshi * Preadmission Environment Home Alone * ADLs Independent * Equipment Cane * List name and contact numbers for known caregivers / representatives who currently or will assist patient after discharge: Fausto zhang - [phone] or - [phone] * Verbal permission to speak to the caregivers and representatives has been obtained from the patient. Yes * Community resources currently utilized None * Additional services required to return to the preadmission environment? No * Can the patient safely return to the preadmission environment? Yes * Has this patient been hospitalized within the prior 30 days at any hospital? No Patient Name: AMY RAPHAEL Page 46183 at 1507 All edits/amendments must be made on the electronic document DICTATION DATE: 11/27/181506 HELPER/DRIVER: PHIL 11/27/181506 RPT#: [id number] DC DATE: STATUS: ADM IN [facility] [address] [place] [address] END OF REPORT
[2018-11-27 17:33] VITALS: BP 101/59
[2018-11-27 21:14] VITALS: BP 95/53
[2018-11-28 01:27] VITALS: BP 124/60
[2018-11-28 05:05] VITALS: BP 112/54
[2018-11-28 08:43] LABS: BASOPHILS 0.7 % (0-2); EOSINOPHILS 1.5 % (0-7); HEMATOCRIT 33.8 % (36.0-48.0); HEMOGLOBIN 12.3 g/dL (12-16); LYMPHOCYTES 27.5 % (15-50); MCH 28.7 pg (26.0-34.0); MCHC 36.4 g/dL (31.0-37.0); MEAN PLATELET VOLUME 10.4 fL (7.4-10.4); MONOCYTES 9.3 % (2-11); PLATELET COUNT 220 10x3/uL (130-400); RBC 4.28 10x6/uL (4.00-5.40); RDW 14.1 % (11.5-14.5)
[2018-11-28 09:07] LABS: CALC OSMOLALITY 288 mosm/kg (275-300); CALCIUM 7.8 mg/dL (8.5-10.1); CARBON DIOXIDE 27.4 mmol/L (21.0-32.0); CHLORIDE - SERUM 110 mmol/L (98-107); CREATININE - SERUM 0.8 mg/dL (0.6-1.3); GLUCOSE 113 mg/dL (74-106); MAGNESIUM - SERUM 1.7 mg/dL (1.8-2.4); SODIUM 145 mmol/L (136-145); UREA NITROGEN 9 mg/dL (7-18); eGFR NON AFRICAN AMERICAN 79 mL/min (90-120)
[2018-11-28 09:10] VITALS: BP 138/79
[2018-11-28 09:11] LABS: PHOSPHOROUS 1.4 mg/dL (2.5-4.9); POTASSIUM - SERUM 2.2 mmol/L (3.5-5.1)
[2018-11-28 12:03] VITALS: BP 115/72
[2018-11-28 16:01] LABS: CALC OSMOLALITY 285 mosm/kg (275-300); CALCIUM 7.7 mg/dL (8.5-10.1); CHLORIDE - SERUM 110 mmol/L (98-107); CREATININE - SERUM 0.7 mg/dL (0.6-1.3); GLUCOSE 97 mg/dL (74-106); MAGNESIUM - SERUM 1.9 mg/dL (1.8-2.4); PHOSPHOROUS 1.6 mg/dL (2.5-4.9); SODIUM 144 mmol/L (136-145); UREA NITROGEN 9 mg/dL (7-18); eGFR NON AFRICAN AMERICAN > 90 mL/min (90-120)
[2018-11-28 16:04] LABS: POTASSIUM - SERUM 2.4 mmol/L (3.5-5.1)
[2018-11-28 16:39] VITALS: BP 124/70
[2018-11-28 20:33] VITALS: BP 144/80
[2018-11-29 00:47] VITALS: BP 164/84
[2018-11-29 05:59] LABS: BASOPHILS 0.6 % (0-2); EOSINOPHILS 2.4 % (0-7); HEMATOCRIT 32.2 % (36.0-48.0); HEMOGLOBIN 11.4 g/dL (12-16); IMMATURE GRANULOCYTES 1.3 % (0-5); LYMPHOCYTES 49.6 % (15-50); MCH 27.9 pg (26.0-34.0); MCHC 35.4 g/dL (31.0-37.0); MCV 78.9 fL (80.0-100.0); MEAN PLATELET VOLUME 10.3 fL (7.4-10.4); MONOCYTES 10.6 % (2-11); NEUTROPHILS 35.5 % (40-80); PLATELET COUNT 250 10x3/uL (130-400); RBC 4.08 10x6/uL (4.00-5.40); RDW 14.3 % (11.5-14.5); WBC 7.8 10x3/uL (4.8-10.8)
[2018-11-29 06:18] LABS: CALC OSMOLALITY 285 mosm/kg (275-300); CALCIUM 7.7 mg/dL (8.5-10.1); CARBON DIOXIDE 27.6 mmol/L (21.0-32.0); CHLORIDE - SERUM 110 mmol/L (98-107); CREATININE - SERUM 0.7 mg/dL (0.6-1.3); GLUCOSE 87 mg/dL (74-106); MAGNESIUM - SERUM 1.8 mg/dL (1.8-2.4); PHOSPHOROUS 2.6 mg/dL (2.5-4.9); SODIUM 145 mmol/L (136-145); UREA NITROGEN 7 mg/dL (7-18); eGFR NON AFRICAN AMERICAN > 90 mL/min (90-120)
[2018-11-29 06:19] LABS: POTASSIUM - SERUM 2.3 mmol/L (3.5-5.1)
[2018-11-29 08:20] VITALS: BP 119/85
[2018-11-29] MEDS ORDERED: LEVAQUIN750 MG PO (08:55)
[2018-11-29] MEDS ORDERED: PHENERGAN25 M1 PO (08:55)
[2018-11-29] MEDS ORDERED: FLAGYL500 MG PO (08:55)
[2018-11-29] MEDS ORDERED: K-TAB10 MEQ PO (08:57)
[2018-11-29] MEDS ORDERED: LOMOTIL 2.5-0.1 EAC1 PO (08:58)
[2018-11-29] MEDS ORDERED: FLORAJEN3 CAPS460 MG PO (08:58)
--- NOTE | 2018-11-29 11:21 | MORECARE ---
CASE MANAGEMENT DISCHARGE SUMMARY PATIENT: AMY RAPHAEL UNIT: [id number] ADM DATE: 11/25/18 AGE: 53 : 65 SEX: F ROOM/BED: D.2238 AUTHOR: MELISSA STONE PHYSICIAN: REFERRING PHYSICIAN: JACQUES JOSHI MD DATE OF SERVICE: 11/29/18 Discharge Plan Patient Name: AMY RAPHAEL Facility: [facility]:[place] : 1965 Planned Disposition: Home Anticipated Discharge Date: Discharge Date: Expected LOS: Initial Reviewer: [email or web address] Initial Review Date: 11/27/2018 Generated: 11/29/18 12:20 pm Comments DCP- Discharge Planning Updated by [email or web address]: Keri Martinez on 11/29/18 10:[address] Received discharge order. I notified Dr. Joshi of Potassium level. The nurse has informed me that the patient states she will go home and kill herself and patient requests a transfer to the psychiatric unit at [facility]. Wendie Pickering has notified Dr. Joshi of this and orders received. I called the transfer center and spoke with Timoteo and clinical faxed. I informed Lb that the patient's preference is [facility]. CM will continue to follow and assist with discharge planning/needs. DCP- Discharge Planning Updated by [email or web address]: Keri Martinez on 11/27/18 2:[address] Patient Name: AMY RAPHAEL Admission Status: ER Accout number: [id number] Admission Date: 11-25-2018 : 1965 Admission Diagnosis: Attending: JACQUES JOSHI Current LOS: 2 Anticipated DC Date: Planned Disposition: Home Primary Insurance: Discharge Planning Comments: CM met with patient to complete initial dc planning assessment. I was asked by patient's friend (Stefani) to meet with them. Another case picker had entered the room, but left before she could do the assessment. CM educated patient on the CM role and verbal consent given by patient to complete assessment. Patient lives at home alone. Patient is very drowsy and answers questions slowly. Her friend states that she is completely independent with all ADL's and AIDL's. Stefani states that she lives right across the street from her and they help each other out. CM discussed availability of home health, rehab services, and medical equipment. Patient denied known discharge needs at this time. Stefani states that if Dr. Joshi feels she needs psychiatric care, that the patient may consider going to [facility]. CM will continue to follow and will assist as needed with dc plans/needs. Lithograph Operator: Keri Juan DCPIA - Discharge Planning Initial Assessment Updated by [email or web address]: Keri Juan on 11/27/18 3:01 pm * Is the patient Alert and Oriented? No * How many steps to enter\exit or inside your home? 5/0 * PCP Dr. Joshi * Preadmission Environment Home Alone * ADLs Independent * Equipment Cane * List name and contact numbers for known caregivers / representatives who currently or will assist patient after discharge: Fausto - son - [phone] or W - [phone] * Verbal permission to speak to the caregivers and representatives has been obtained from the patient. Yes * Community resources currently utilized None * Additional services required to return to the preadmission environment? No * Can the patient safely return to the preadmission environment? Yes * Has this patient been hospitalized within the prior 30 days at any hospital? No External Providers External Provider: [facility] Next Contact Date: Service Request Date: Service Type: Resolution: Reviewer: Comments: Last DP export: 11/27/18 2:07 p Patient Name: AMY RAPHAEL Page 48525 at 1121 All edits/amendments must be made on the electronic document DICTATION DATE: 11/29/18 112 MARINE GEOLOGIST: PHIL 11/29/181119 RPT#: [id number] DC DATE: STATUS: ADM IN [facility] [address] [place] [address] END OF REPORT
--- NOTE | 2018-11-29 11:34 | MORECARE ---
CASE MANAGEMENT DISCHARGE SUMMARY PATIENT: AMY RAPHAEL UNIT: [id number] ADM DATE: 11/25/18 AGE: 53 : 65 SEX: F ROOM/BED: D.2238 AUTHOR: MELISSA STONE PHYSICIAN: REFERRING PHYSICIAN: JACQUES JOSHI MD DATE OF SERVICE: 11/29/18 Discharge Plan Patient Name: AMY RAPHAEL Facility: [facility]:[place] : 1965 Planned Disposition: Home Anticipated Discharge Date: Discharge Date: Expected LOS: Initial Reviewer: [email or web address] Initial Review Date: 11/27/2018 Generated: 11/29/18 12:34 pm Comments DCP- Discharge Planning Updated by [email or web address]: Keri Villakevin on 11/29/18 10:[address] Patient states it is ok to call her son, Fausto, and notify him that she is wanting to be transferred to [facility] for psychiatric care. I called [phone] and his voice mailbox is full . I called [phone] and "Froylan" states he has not worked there since last year. I asked patient if she had another number for him and she does not, but states she has texted him that she we are trying to get her transferred for psychiatric care. CM will continue to follow and assist with discharge planning/needs. DCP- Discharge Planning Updated by [id number]: Keri Martinez on 11/29/18 10:[address] Received discharge order. I notified Dr. Joshi of Potassium level. The nurse has informed me that the patient states she will go home and kill herself and patient requests a transfer to the psychiatric unit at [facility]. Wendie Pickering has notified Dr. Joshi of this and orders received. I called the transfer center and spoke with Timoteo and clinical faxed. I informed Lb that the patient's preference is [facility]. CM will continue to follow and assist with discharge planning/needs. DCP- Discharge Planning Updated by [id number]: Keri Juan on 11/27/18 2:[address] Patient Name: AMY RAPHAEL Admission Status: ER Accout number: [id number] Admission Date: 11-25-2018 : 1965 Admission Diagnosis: Attending: JACQUES JOSHI Current LOS: 2 Anticipated DC Date: Planned Disposition: Home Primary Insurance: [facility] Discharge Planning Comments: CM met with patient to complete initial dc planning assessment. I was asked by patient's friend (Stefani) to meet with them. Another counter caser had entered the room, but left before she could do the assessment. CM educated patient on the CM role and verbal consent given by patient to complete assessment. Patient lives at home alone. Patient is very drowsy and answers questions slowly. Her friend states that she is completely independent with all ADL's and AIDL's. Stefani states that she lives right across the street from her and they help each other out. CM discussed availability of home health, rehab services, and medical equipment. Patient denied known discharge needs at this time. Stefani states that if Dr. Joshi feels she needs psychiatric care, that the patient may consider going to [facility]. CM will continue to follow and will assist as needed with dc plans/needs. Graduate Assistant Athletic Trainer: Keri Martinez DCPIA - Discharge Planning Initial Assessment Updated by [email or web address]: Keri Martinez on 11/27/18 3:01 pm * Is the patient Alert and Oriented? No * How many steps to enter\\exit or inside your home? 5/0 * PCP Dr. Joshi * Preadmission Environment Home Alone * ADLs Independent * Equipment Cane * List name and contact numbers for known caregivers / representatives who currently or will assist patient after discharge: Fausto - son - [phone] or W - [phone] * Verbal permission to speak to the caregivers and representatives has been obtained from the patient. Yes * Community resources currently utilized None * Additional services required to return to the preadmission environment? No * Can the patient safely return to the preadmission environment? Yes * Has this patient been hospitalized within the prior 30 days at any hospital? No Last DP export: 11/29/18 10:21 a Patient Name: AMY RAPHAEL Page 24001 at 1134 All edits/amendments must be made on the electronic document DICTATION DATE: 11/29/18 113 WEB MOBILE DESIGNER: PHIL 11/29/18 1133 RPT#: [id number] DC DATE: STATUS: ADM IN [facility] [address] [facility] [place] [address] END OF REPORT
--- NOTE | 2018-11-29 12:46 | MORECARE ---
CASE MANAGEMENT DISCHARGE SUMMARY PATIENT: AMY RAPHAEL UNIT: [id number] ADM DATE: 11/25/18 AGE: 53 : 65 SEX: F ROOM/BED: D.2238 AUTHOR: MELISSA STONE PHYSICIAN: REFERRING PHYSICIAN: JACQUES JOSHI MD DATE OF SERVICE: 11/29/18 Discharge Plan Patient Name: AMY RAPHAEL Facility: [facility]:[place] : 1965 Planned Disposition: Home Anticipated Discharge Date: Discharge Date: Expected LOS: Initial Reviewer: [email or web address] Initial Review Date: 11/27/2018 Generated: 11/29/18 1:45 pm Comments DCP- Discharge Planning Updated by [email or web address]: Keri Villakevin on 11/29/18 10:[address] Patient states it is ok to call her son, Fausto, and notify him that she is wanting to be transferred to [facility] for psychiatric care. I called [phone] and his voice mailbox is full . I called [phone] and "Froylan" states he has not worked there since last year. I asked patient if she had another number for him and she does not, but states she has texted him that she we are trying to get her transferred for psychiatric care. CM will continue to follow and assist with discharge planning/needs. DCP- Discharge Planning Updated by [email or web address]: Keri Martinez on 11/29/18 10:[address] Received discharge order. I notified Dr. Joshi of Potassium level. The nurse has informed me that the patient states she will go home and kill herself and patient requests a transfer to the psychiatric unit at [facility]. Wendie Pickering has notified Dr. Joshi of this and orders received. I called the transfer center and spoke with Timoteo and clinical faxed. I informed Lb that the patient's preference is [facility]. CM will continue to follow and assist with discharge planning/needs. DCP- Discharge Planning Updated by [email or web address]: Keri Martinez on 11/27/18 2:[address] Patient Name: AMY RAPHAEL Admission Status: ER Accout number: [id number] Admission Date: 11-25-2018 : 1965 Admission Diagnosis: Attending: JACQUES JOSHI Current LOS: 2 Anticipated DC Date: Planned Disposition: Home Primary Insurance: [facility] Discharge Planning Comments: CM met with patient to complete initial dc planning assessment. I was asked by patient's friend (Stefani) to meet with them. Another case work aide had entered the room, but left before she could do the assessment. CM educated patient on the CM role and verbal consent given by patient to complete assessment. Patient lives at home alone. Patient is very drowsy and answers questions slowly. Her friend states that she is completely independent with all ADL's and AIDL's. Stefani states that she lives right across the street from her and they help each other out. CM discussed availability of home health, rehab services, and medical equipment. Patient denied known discharge needs at this time. Stefani states that if Dr. Joshi feels she needs psychiatric care, that the patient may consider going to [facility]. CM will continue to follow and will assist as needed with dc plans/needs. Behavioral Assistant: Keri Martinez DCPIA - Discharge Planning Initial Assessment Updated by [email or web address]: Keri Martinez on 11/27/18 3:01 pm * Is the patient Alert and Oriented? No * How many steps to enter\\exit or inside your home? 5/0 * PCP Dr. Joshi * Preadmission Environment Home Alone * ADLs Independent * Equipment Cane * List name and contact numbers for known caregivers / representatives who currently or will assist patient after discharge: Fausto - son - [phone] or W - [phone] * Verbal permission to speak to the caregivers and representatives has been obtained from the patient. Yes * Community resources currently utilized None * Additional services required to return to the preadmission environment? No * Can the patient safely return to the preadmission environment? Yes * Has this patient been hospitalized within the prior 30 days at any hospital? No External Providers External Provider: OTHER-OTHER Next Contact Date: Service Request Date: Service Type: Resolution: Reviewer: Comments: Last DP export: 11/29/18 10:34 a Patient Name: AMY RAPHAEL Page 79120 at 1246 All edits/amendments must be made on the electronic document DICTATION DATE: 11/29/181244 RESIDENTIAL DIRECT SUPPORT PROFESSIONAL: PHIL 11/29/181244 RPT#: [id number] DC DATE: STATUS: ADM IN [facility] [address] [place] [address] END OF REPORT
--- NOTE | 2018-11-29 12:59 | MORECARE ---
CASE MANAGEMENT DISCHARGE SUMMARY PATIENT: AMY RAPHAEL UNIT: [id number] ADM DATE: 11/25/18 AGE: 53 : 65 SEX: F ROOM/BED: D.2238 AUTHOR: MELISSA SOTNE PHYSICIAN: REFERRING PHYSICIAN: JACQUES JOSHI MD DATE OF SERVICE: 11/29/18 Discharge Plan Patient Name: AMY RAPHAEL Facility: [facility]:[place] : 1965 Planned Disposition: Home Anticipated Discharge Date: Discharge Date: Expected LOS: Initial Reviewer: [email or web address] Initial Review Date: 11/27/2018 Generated: 11/29/18 1:59 pm Comments DCP- Discharge Planning Updated by [id number]: Keri Juan on 11/29/18 11:[address] Clinical faxed to [facility] at [phone] per their request. They also states they need results of a UDS and blood alcohol level. I notified nurse (Roxanne) to collect UDS. I will fax results when obtained. [facility] left their number [phone] or [phone] to check on referral. DCP- Discharge Planning Updated by [id number]: Keri Juan on 11/29/18 10:[address] Patient states it is ok to call her son, Fausto, and notify him that she is wanting to be transferred to [facility] for psychiatric care. I called [phone] and his voice mailbox is full . I called [phone] and "Froylan" states he has not worked there since last year. I asked patient if she had another number for him and she does not, but states she has texted him that she we are trying to get her transferred for psychiatric care. CM will continue to follow and assist with discharge planning/needs. DCP- Discharge Planning Updated by [id number]: Keri Martinez on 11/29/18 10:[address] Received discharge order. I notified Dr. Joshi of Potassium level. The nurse has informed me that the patient states she will go home and kill herself and patient requests a transfer to the psychiatric unit at [facility]. Wendie Pickering has notified Dr. Joshi of this and orders received. I called the transfer center and spoke with Timoteo and clinical faxed. I informed Lb that the patient's preference is [facility]. CM will continue to follow and assist with discharge planning/needs. DCP- Discharge Planning Updated by [email or web address]: Keri Juan on 11/27/18 2:[address] Patient Name: AMY RAPHAEL Admission Status: ER Accout number: [id number] Admission Date: 11-25-2018 : 1965 Admission Diagnosis: Attending: JACQUES JOSHI Current LOS: 2 Anticipated DC Date: Planned Disposition: Home Primary Insurance: [facility] Discharge Planning Comments: CM met with patient to complete initial dc planning assessment. I was asked by patient's friend (Stefani) to meet with them. Another counter caser had entered the room, but left before she could do the assessment. CM educated patient on the CM role and verbal consent given by patient to complete assessment. Patient lives at home alone. Patient is very drowsy and answers questions slowly. Her friend states that she is completely independent with all ADL's and AIDL's. Stefani states that she lives right across the street from her and they help each other out. CM discussed availability of home health, rehab services, and medical equipment. Patient denied known discharge needs at this time. Stefani states that if Dr. Joshi feels she needs psychiatric care, that the patient may consider going to [facility]. CM will continue to follow and will assist as needed with dc plans/needs. Theatre Program Director: Keri Martinez DCPIA - Discharge Planning Initial Assessment Updated by [email or web address]: Keri Martinez on 11/27/18 3:01 pm * Is the patient Alert and Oriented? No * How many steps to enter\\exit or inside your home? 5/0 * PCP Dr. Joshi * Preadmission Environment Home Alone * ADLs Independent * Equipment Cane * List name and contact numbers for known caregivers / representatives who currently or will assist patient after discharge: Fausto - son - [phone] or W - [phone] * Verbal permission to speak to the caregivers and representatives has been obtained from the patient. Yes * Community resources currently utilized None * Additional services required to return to the preadmission environment? No * Can the patient safely return to the preadmission environment? Yes * Has this patient been hospitalized within the prior 30 days at any hospital? No Last DP export: 11/29/18 11:46 a Patient Name: AMY RAPHAEL Page [id number] at 1259 All edits/amendments must be made on the electronic document DICTATION DATE: 11/29/181258 INSOLE ROUNDER: PHIL 11/29/18 1257 RPT#: [id number] DC DATE: STATUS: ADM IN [facility] [address] [place] [address] END OF REPORT
[2018-11-29 13:08] VITALS: BP 129/75
[2018-11-29 13:56] LABS: UDS - AMPHET NEGATIVE QUAL (NEGATIVE); UDS - BARB NEGATIVE QUAL (NEGATIVE); UDS - BENZO NEGATIVE QUAL (NEGATIVE); UDS - COCAINE NEGATIVE QUAL (NEGATIVE); UDS - OPIATE POSITIVE QUAL (NEGATIVE); UDS - PCP NEGATIVE QUAL (NEGATIVE); UDS - THC POSITIVE QUAL (NEGATIVE)
--- NOTE | 2018-11-29 14:50 | MORECARE ---
CASE MANAGEMENT DISCHARGE SUMMARY PATIENT: AMY RAPHAEL UNIT: [id number] ADM DATE: 11/25/18 AGE: 53 : 65 SEX: F ROOM/BED: D.2238 AUTHOR: MELISSA STONE PHYSICIAN: REFERRING PHYSICIAN: JACQUES JOSHI MD DATE OF SERVICE: 11/29/18 Discharge Plan Patient Name: AMY RAPHAEL Facility: [facility]:[place] : 1965 Planned Disposition: Home Anticipated Discharge Date: Discharge Date: Expected LOS: Initial Reviewer: [email or web address] Initial Review Date: 11/27/2018 Generated: 11/29/18 3:49 pm Comments DCP- Discharge Planning Updated by [email or web address]: Keri Martinez on 11/29/18 1:[address] Aurora from [facility] called and states her director states she is not appropriate for psychiatric admission. I faxed the nurses notes to Transfer center and informed Aurora that she has been reassessed and noted to be a suicidal risk and has a one on one sitter. Aurora states that patient's Potassium level will need to be corrected before admission to [facility]. Patient's primary nurse notified. DCP- Discharge Planning Updated by [id number]: Keri Martinez on 11/29/18 11:[address] Clinical faxed to [facility] at [phone] per their request. They also states they need results of a UDS and blood alcohol level. I notified nurse (Roxanne) to collect UDS. I will fax results when obtained. [facility] left their number [phone] or [phone] to check on referral. DCP- Discharge Planning Updated by [id number]: Keri Martinez on 11/29/18 10:[address] Patient states it is ok to call her son, Fausto, and notify him that she is wanting to be transferred to [facility] for psychiatric care. I called [phone] and his voice mailbox is full . I called [phone] and "Froylan" states he has not worked there since last year. I asked patient if she had another number for him and she does not, but states she has texted him that she we are trying to get her transferred for psychiatric care. CM will continue to follow and assist with discharge planning/needs. DCP- Discharge Planning Updated by [id number]: Keri Martinez on 11/29/18 10:[address] Received discharge order. I notified Dr. Joshi of Potassium level. The nurse has informed me that the patient states she will go home and kill herself and patient requests a transfer to the psychiatric unit at [facility]. Wendie Pickering has notified Dr. Joshi of this and orders received. I called the transfer center and spoke with Timoteo and clinical faxed. I informed Lb that the patient's preference is [facility]. CM will continue to follow and assist with discharge planning/needs. DCP- Discharge Planning Updated by [id number]: Keri Martinez on 11/27/18 2:[address] Patient Name: AMY RAPHAEL Admission Status: ER Accout number: [id number] Admission Date: 11-25-2018 : 1965 Admission Diagnosis: Attending: JACQUES JOSHI Current LOS: 2 Anticipated DC Date: Planned Disposition: Home Primary Insurance: [facility] Discharge Planning Comments: CM met with patient to complete initial dc planning assessment. I was asked by patient's friend (Stefani) to meet with them. Another lead case manager had entered the room, but left before she could do the assessment. CM educated patient on the CM role and verbal consent given by patient to complete assessment. Patient lives at home alone. Patient is very drowsy and answers questions slowly. Her friend states that she is completely independent with all ADL's and AIDL's. Stefani states that she lives right across the street from her and they help each other out. CM discussed availability of home health, rehab services, and medical equipment. Patient denied known discharge needs at this time. Stefani states that if Dr. Joshi feels she needs psychiatric care, that the patient may consider going to [facility]. CM will continue to follow and will assist as needed with dc plans/needs. Roll Coating Machine Operator: Keri Martinez DCPIA - Discharge Planning Initial Assessment Updated by [id number]: Keri Martinez on 11/27/18 3:01 pm * Is the patient Alert and Oriented? No * How many steps to enter\\exit or inside your home? 5/0 * PCP Dr. Joshi * Preadmission Environment Home Alone * ADLs Independent * Equipment Cane * List name and contact numbers for known caregivers / representatives who currently or will assist patient after discharge: Fausto zhang - [phone] or w - [phone] * Verbal permission to speak to the caregivers and representatives has been obtained from the patient. Yes * Community resources currently utilized None * Additional services required to return to the preadmission environment? No * Can the patient safely return to the preadmission environment? Yes * Has this patient been hospitalized within the prior 30 days at any hospital? No Last DP export: 11/29/18 11:59 a Patient Name: AMY RAPHAEL Page [id number] at 1450 All edits/amendments must be made on the electronic document DICTATION DATE: 11/29/181448 VP CUSTOMER DEVELOPMENT: PHIL 11/29/181448 RPT#: [id number] DC DATE: STATUS: ADM IN [facility] [address] [place] [address] END OF REPORT
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
--- NOTE | 2018-11-29 16:08 | MORECARE ---
CASE MANAGEMENT DISCHARGE SUMMARY PATIENT: AMY RAPHAEL UNIT: [id number] ADM DATE: 11/25/18 AGE: 53 : 65 SEX: F ROOM/BED: D.2238 AUTHOR: MELISSA STONE PHYSICIAN: REFERRING PHYSICIAN: JACQUES JOSHI MD DATE OF SERVICE: 11/29/18 Discharge Plan Patient Name: AMY RAPHAEL Facility: [facility]:[place] : 1965 Planned Disposition: Home Anticipated Discharge Date: Discharge Date: Expected LOS: Initial Reviewer: [email or web address] Initial Review Date: 11/27/2018 Generated: 11/29/18 5:08 pm Comments DCP- Discharge Planning Updated by [id number]: Keri Martinez on 11/29/18 3:[address] SORAIDA STATES TO RETURN HER CALL AT [phone] WHEN POTASSIUM IS WNL FOR ACCEPTANCE TO [facility]. DCP- Discharge Planning Updated by [id number]: Keri Villakevin on 11/29/18 1:[address] Soraida from [facility] called and states her director states she is not appropriate for psychiatric admission. I faxed the nurses notes to Transfer center and informed Soraida that she has been reassessed and noted to be a suicidal risk and has a one on one sitter. Soraida states that patient's Potassium level will need to be corrected before admission to [facility]. Patient's primary nurse notified. DCP- Discharge Planning Updated by [id number]: Keri Villakevin on 11/29/18 11:[address] Clinical faxed to [facility] at [phone] per their request. They also states they need results of a UDS and blood alcohol level. I notified nurse (Roxanne) to collect UDS. I will fax results when obtained. [facility] left their number [phone] or [phone] to check on referral. DCP- Discharge Planning Updated by [id number]: Keri Martinez on 11/29/18 10:[address] Patient states it is ok to call her son, Fausto, and notify him that she is wanting to be transferred to [facility] for psychiatric care. I called [phone] and his voice mailbox is full . I called [phone] and "Froylan" states he has not worked there since last year. I asked patient if she had another number for him and she does not, but states she has texted him that she we are trying to get her transferred for psychiatric care. CM will continue to follow and assist with discharge planning/needs. DCP- Discharge Planning Updated by [id number]: Keri Martinez on 11/29/18 10:[address] Received discharge order. I notified Dr. Joshi of Potassium level. The nurse has informed me that the patient states she will go home and kill herself and patient requests a transfer to the psychiatric unit at [facility]. Wendie Pickering has notified Dr. Joshi of this and orders received. I called the transfer center and spoke with Timoteo and clinical faxed. I informed Lb that the patient's preference is [facility]. CM will continue to follow and assist with discharge planning/needs. DCP- Discharge Planning Updated by [email or web address]: Keri Martinez on 11/27/18 2:[address] Patient Name: AMY RAPHAEL Admission Status: ER Accout number: [id number] Admission Date: 11-25-2018 : 1965 Admission Diagnosis: Attending: JACQUES JOSHI Current LOS: 2 Anticipated DC Date: Planned Disposition: Home Primary Insurance: [employer] Discharge Planning Comments: CM met with patient to complete initial dc planning assessment. I was asked by patient's friend (Stefani) to meet with them. Another outpatient case manager had entered the room, but left before she could do the assessment. CM educated patient on the CM role and verbal consent given by patient to complete assessment. Patient lives at home alone. Patient is very drowsy and answers questions slowly. Her friend states that she is completely independent with all ADL's and AIDL's. Stefani states that she lives right across the street from her and they help each other out. CM discussed availability of home health, rehab services, and medical equipment. Patient denied known discharge needs at this time. Stefani states that if Dr. Joshi feels she needs psychiatric care, that the patient may consider going to [facility]. CM will continue to follow and will assist as needed with dc plans/needs. Criminology Teacher: Keri Martinez DCPIA - Discharge Planning Initial Assessment Updated by [email or web address]: Keri Martinez on 11/27/18 3:01 pm * Is the patient Alert and Oriented? No * How many steps to enter\\exit or inside your home? 5/0 * PCP Dr. Joshi * Preadmission Environment Home Alone * ADLs Independent * Equipment Cane * List name and contact numbers for known caregivers / representatives who currently or will assist patient after discharge: [facility] - [phone] or - [phone] * Verbal permission to speak to the caregivers and representatives has been obtained from the patient. Yes * Community resources currently utilized None * Additional services required to return to the preadmission environment? No * Can the patient safely return to the preadmission environment? Yes * Has this patient been hospitalized within the prior 30 days at any hospital? No Last DP export: 11/29/18 1:49 p Patient Name: AMY RAPHAEL Page [id number] at 1608 All edits/amendments must be made on the electronic document DICTATION DATE: 11/29/181607 PARACHUTE MENDER: PHIL 11/29/181607 RPT#: [id number] DC DATE: STATUS: ADM IN [facility] [address] [place] [address] END OF REPORT
[2018-11-29 16:33] VITALS: BP 134/88
[2018-11-29 21:48] VITALS: BP 122/75
--- NOTE | 2018-11-30 11:59 | PN ---
PATIENT:AMY RAPHAEL MEDICAL RECORD: [id number] LOCATION:[facility] ADMISSION DATE: 11/25/18 PROGRESS NOTE DATE OF SERVICE: 11/29/2018 SUBJECTIVE: The patient's case was discussed with staff. She has no new complaint. OBJECTIVE: The patient has a depressed mood, is back tracking away from the suicidal statements she made, and is endorsing numerous vegetative depressive symptoms. ASSESSMENT: Major depression. PLAN: The patient will be treated with current medications. She told me yesterday that she was not suicidal and then subsequently she sent a text message to a friend or family member saying that when she got out of the hospital, she intended to kill herself. Appropriately, the friend or family member contacted the hospital. She is now with a sitter. Obviously, my conclusions yesterday were incorrect and based upon misleading and deceptive information I was given. I have reassessed the situation and continue to believe that she is primarily personality disordered, possibly substance addicted, and clearly depressed. I will recommend that she continue with a sitter, and given the nature of these events, I think it is mandatory that she be admitted to a behavioral unit once medically stabilized. TRANSINT:[id number] Voice Confirmation ID: [id number] DOCUMENT ID: [id number] DMITRI ARNOLD MD at 1159 CC: [id number] DICTATION DATE: 11/29/18 1541 NUCLEAR TECHNICIAN: 11/29/18 1859 DIS IN 11/30/18 [facility] [address] [place] [address]
--- NOTE | 2018-11-30 17:02 | MORECARE ---
CASE MANAGEMENT DISCHARGE SUMMARY PATIENT: AMY RAPHAEL UNIT: [id number] ADM DATE: 11/25/18 AGE: 53 : 65 SEX: F ROOM/BED: D.2238 AUTHOR: MELISSA STONE PHYSICIAN: REFERRING PHYSICIAN: JACQUES JOSHI MD DATE OF SERVICE: 11/30/18 Discharge Plan Patient Name: AMY RAPHAEL Facility: [facility]:[place] : 1965 Planned Disposition: Home Anticipated Discharge Date: Discharge Date: 11/30/2018 Expected LOS: 0 Initial Reviewer: [email or web address] Initial Review Date: 11/27/2018 Generated: 11/30/18 6:01 pm Comments DCP- Discharge Planning Updated by [id number]: Keri Martinez on 11/29/18 3:[address] SORAIDA STATES TO RETURN HER CALL AT [phone] WHEN POTASSIUM IS WNL FOR ACCEPTANCE TO [facility]. DCP- Discharge Planning Updated by [id number]: Keri Martinez on 11/29/18 1:[address] Soraida from [facility] called and states her director states she is not appropriate for psychiatric admission. I faxed the nurses notes to Transfer center and informed Soraida that she has been reassessed and noted to be a suicidal risk and has a one on one sitter. Soraida states that patient's Potassium level will need to be corrected before admission to [facility]. Patient's primary nurse notified. DCP- Discharge Planning Updated by [id number]: Keri Martinez on 11/29/18 11:[address] Clinical faxed to [facility] at [phone] per their request. They also states they need results of a UDS and blood alcohol level. I notified nurse (Roxanne) to collect UDS. I will fax results when obtained. [facility] left their number [phone] or [phone] to check on referral. DCP- Discharge Planning Updated by [id number]: Keri Martinez on 11/29/18 10:[address] Patient states it is ok to call her son, Fausto, and notify him that she is wanting to be transferred to [facility] for psychiatric care. I called [phone] and his voice mailbox is full . I called [phone] and "Froylan" states he has not worked there since last year. I asked patient if she had another number for him and she does not, but states she has texted him that she we are trying to get her transferred for psychiatric care. CM will continue to follow and assist with discharge planning/needs. DCP- Discharge Planning Updated by [id number]: Keri Martinez on 11/29/18 10:[address] Received discharge order. I notified Dr. Joshi of Potassium level. The nurse has informed me that the patient states she will go home and kill herself and patient requests a transfer to the psychiatric unit at [facility]. Wendie Pickering has notified Dr. Joshi of this and orders received. I called the transfer center and spoke with Timoteo and clinical faxed. I informed Lb that the patient's preference is [facility]. CM will continue to follow and assist with discharge planning/needs. DCP- Discharge Planning Updated by [email or web address]: Keri Martinez on 11/27/18 2:[address] Patient Name: AMY RAPHAEL Admission Status: ER Accout number: [id number] Admission Date: 11-25-2018 : 1965 Admission Diagnosis: Attending: JACQUES JOSHI Current LOS: 2 Anticipated DC Date: Planned Disposition: Home Primary Insurance: [facility] Discharge Planning Comments: CM met with patient to complete initial dc planning assessment. I was asked by patient's friend (Stefani) to meet with them. Another disease case manager had entered the room, but left before she could do the assessment. CM educated patient on the CM role and verbal consent given by patient to complete assessment. Patient lives at home alone. Patient is very drowsy and answers questions slowly. Her friend states that she is completely independent with all ADL's and AIDL's. Stefani states that she lives right across the street from her and they help each other out. CM discussed availability of home health, rehab services, and medical equipment. Patient denied known discharge needs at this time. Stefani states that if Dr. Joshi feels she needs psychiatric care, that the patient may consider going to [facility]. CM will continue to follow and will assist as needed with dc plans/needs. Floor Manager: Keri Martinez DCPIA - Discharge Planning Initial Assessment Updated by [id number]: Keri Juan on 11/27/18 3:01 pm * Is the patient Alert and Oriented? No * How many steps to enter\\exit or inside your home? 5/0 * PCP Dr. Joshi * Preadmission Environment Home Alone * ADLs Independent * Equipment Cane * List name and contact numbers for known caregivers / representatives who currently or will assist patient after discharge: [facility] - [phone] or - [phone] * Verbal permission to speak to the caregivers and representatives has been obtained from the patient. Yes * Community resources currently utilized None * Additional services required to return to the preadmission environment? No * Can the patient safely return to the preadmission environment? Yes * Has this patient been hospitalized within the prior 30 days at any hospital? No Last DP export: 11/29/18 3:08 p Patient Name: AMY RAPHAEL Page [id number] at 1702 All edits/amendments must be made on the electronic document DICTATION DATE: 11/30/181700 LEAD MANUFACTURING ENGINEERING TECH: PHIL 11/30/181700 RPT#: [id number] [place] DATE:11/30/18 STATUS: DIS IN [facility] [address] [place] [address] END OF REPORT
== END 2018-11-30 08:26 | DRG 872 ==
LOC: D.ER 20:41 → D.MS 11-25 01:03
PROVIDERS: Family Medicine; ADMIT Family Medicine; ATTEND Family Medicine
DX: A41.9 Sepsis, unspecified organism (principal); A09 Infectious gastroenteritis and colitis, unspecified; R45.851 Suicidal ideations; E87.6 Hypokalemia; K21.9 Gastro-esophageal reflux disease without esophagitis; E78.5 Hyperlipidemia, unspecified; F41.8 Other specified anxiety disorders; F43.12 Post-traumatic stress disorder, chronic; I25.10 Atherosclerotic heart disease of native coronary artery without angina pectoris; H66.90 Otitis media, unspecified, unspecified ear; I10 Essential (primary) hypertension; M15.0 Primary generalized (osteo)arthritis

== ENCOUNTER → 2019-02-13 15:21 | Outpatient (CLI) | payer OTHER ==
[2018-11-26 13:52] VITALS: BMI 31.3
[~2019-02-13 15:21] MED LIST changes: +ABILIFY10 MG PO; +ABILIFY2 MG PO; +AMBIEN CR 6.26.25 MG PO; +BAYER ASPIRIN325 MG PO; +BUSPAR10 MG PO; +FLAGYL500 MG PO; +FLORAJEN3 CAPS460 MG PO; +FOLIC ACID1 MG PO; +K-TAB10 MEQ PO; +LEVAQUIN750 MG PO; +LIDODERM 5 %1 PATCH; +LOMOTIL 2.5-0.1 EAC1 PO; +LYRICA50 MG PO; +MINIPRESS2 MG PO; +NITRO-DUR0.3 MG TRANSDERM; +NITROSTAT0.4 MG SL; +PHENERGAN25 M1 PO; +VIIBRYD10 MG PO
[2019-02-13 15:36] LABS: BASOPHILS 0.6 % (0-2); EOSINOPHILS 1.9 % (0-7); HEMATOCRIT 42.7 % (36.0-48.0); HEMOGLOBIN 13.6 g/dL (12-16); IMMATURE GRANULOCYTES 0.2 % (0-5); LYMPHOCYTES 40.3 % (15-50); MCH 29.4 pg (26.0-34.0); MCHC 31.9 g/dL (31.0-37.0); MCV 92.2 fL (80.0-100.0); MEAN PLATELET VOLUME 10.5 fL (7.4-10.4); MONOCYTES 6.3 % (2-11); NEUTROPHILS 50.7 % (40-80); RBC 4.63 10x6/uL (4.00-5.40); RDW 14.3 % (11.5-14.5); WBC 10.3 10x3/uL (4.8-10.8)
[2019-02-13 16:08] LABS: PLATELET COUNT 302 10x3/uL (130-400)
[2019-02-13 16:45] LABS: ALBUMIN 3.8 g/dL (3.4-5.0); ALKALINE PHOSPHATASE 89 U/L (46-116); ALT (SGPT) 26 U/L (10-68); BILIRUBIN - TOTAL 0.34 mg/dL (0.2-1.3); CALC OSMOLALITY 285 mosm/kg (275-300); CALCIUM 9.1 mg/dL (8.5-10.1); CARBON DIOXIDE 29.8 mmol/L (21.0-32.0); CHLORIDE - SERUM 105 mmol/L (98-107); CHOL - HDL RATIO 2.2 ratio (2.3-4.1); CHOLESTEROL, TOTAL 162 mg/dL (0-200); CREATININE - SERUM 0.8 mg/dL (0.6-1.3); GLUCOSE 88 mg/dL (74-106); HDL CHOLESTEROL 73 mg/dL (32-96); LDL CHOLESTEROL 72 mg/dL (0-100); POTASSIUM - SERUM 4.5 mmol/L (3.5-5.1); PROTEIN - SERUM 7.1 g/dL (6.4-8.2); SODIUM 144 mmol/L (136-145); THYROID STIMULATING HORMONE 1.64 uIU/mL (0.36-3.74); TRIGLYCERIDE 88 mg/dL (30-200); UREA NITROGEN 12 mg/dL (7-18); eGFR NON AFRICAN AMERICAN 79 mL/min (90-120)
== END | disposition home or self-care (01) ==
LOC: D.LAB 15:21
PROVIDERS: ATTEND Family Medicine
DX: I25.10 Atherosclerotic heart disease of native coronary artery without angina pectoris (principal); M79.7 Fibromyalgia; F34.1 Dysthymic disorder; M19.90 Unspecified osteoarthritis, unspecified site

== ENCOUNTER → 2019-02-26 08:07 | Outpatient (CLI) | payer OTHER ==
[2018-11-26 13:52] VITALS: BMI 31.3
--- NOTE | 2019-03-05 10:21 | ST ---
PATIENT:AMY RAPHAEL MEDICAL RECORD: [id number] SEX: F LOCATION:[facility] ORDER #: ADMISSION DATE: 02/26/19 AGE OF PATIENT: 53 REFERRING PHYSICIAN: INTERPRETING PHYSICIAN: DARLENE KAPLAN MD DATE OF SERVICE: 02/26/2019 PROCEDURE: Nuclear stress test. INDICATION: Angina and coronary artery disease, hypertension, hyperlipidemia. She was exercised on standard Lexiscan protocol with 33 mCi of sestamibi injected at peak stress, 11 mCi used previously for rest images. FINDINGS: Gated SPECT reveals preserved ejection fraction at 64% with mild decreased thickening and brightening throughout the inferior segments. SPECT imaging Cardiolite was used as myocardial perfusion agent. There is a mixed perfusion defect inferiorly. This is partially fixed, partially reversible. This includes the basal, mid, apical, inferior segments. There is reversibility laterally. This includes the basal and mid lateral segments. The degree of reversibility is moderate. The amount of myocardium involved between 2 defects is moderate. OVERALL IMPRESSION: This is an intermediate risk nuclear stress test, reversible ischemia throughout the inferior as well as lateral distribution as well as partially fixed defect laterally suggestive of hemodynamically significant coronary artery disease and ongoing ischemia. TRANSINT:[id number] Voice Confirmation ID: [id number] DOCUMENT ID: [id number] DARLENE KAPLAN MD at 1021 CC: JACQUES FERRARO [id number] DICTATION DATE: 02/27/19 1207 REJECT OPENER AND FILLER: 02/28/19 0037 DEP CLI 02/26/19 [place] [id number] [place] [id number]
== END | disposition home or self-care (01) ==
LOC: D.HCCARDIO 08:07
PROVIDERS: ATTEND Internal Medicine Interventional Cardiology
DX: I25.119 Atherosclerotic heart disease of native coronary artery with unspecified angina pectoris (principal)

== ENCOUNTER 2019-03-22 07:38 | Outpatient (CLI) | payer OTHER ==
[~2019-03-22] VITALS: Ht 175.3 cm; Wt 104.5 kg
--- NOTE | ~2019-03-22 | HEMODYNAMI ---
PATIENT:AMY RAPHAEL MEDICAL RECORD: [id number] : 65 LOCATION:[facility] ADMISSION DATE: 03/22/19 Generatedon:03/22/201910:20 Patient name: AMY RAPHAEL Patient #: [id number] SSN: [id number] : 1965 Date of study: 03/22/2019 Page: Of Hemodynamic Procedure Report Patient Data Patient Demographics Procedure consent was obtained First Name: AMY Gender: Female Last Name: DONAVON : 1965 [facility] Initial: MARNIE Age: 54 year(s) Patient #: [id number] Race: SSN: [id number] Additional ID: [id number] Contact details Address: [address] [place] [address] [facility] State: [place] City: [place] Zip code: [address] Past Medical History Allergies Allergen Reaction Date Comments Reported Other allergy 08/24/2016 Sulfa, Zofran, phenergan, Rocephin. Other allergy 04/05/2017 Sulfa, Rocephin, Imdur, Zofran, Phenergan Other allergy 09/07/2018 Other allergy 03/22/2019 SULFA, ISOSORIBIDE, CEFTRIAZONE, PROMETHAZINE, ONDANSETRON Admission Admission Data Admission Date: 03/22/2019 Admission Time: 7:38 Arrival Date: 03/22/2019 Arrival Time: 0:00 Height (in.): 68.9 BSA: 2.19 (m2) Height (cm.): 175 BMI: 33.96 (kg/m2) Weight (lbs.): 229.28 Weight (kg.): 104 Lab Results Lab Result Date: 03/22/2019 Lab Result Time: 0:00 Biochemistry Name Units Result Min Max BUN mg/dl 16 --(---*)-- 7 18 Creatinine mg/dl 0.9 --(-*--)-- 0.6 1.3 eGFR ml/min 69 *-(----)-- 90 120 NONAFRICAN CBC Name Units Result Min Max Hematocrit % 44.6 --(*---)-- 42 54 Hemoglobin g/dl 14.6 --(-*--)-- 13.5 17.5 Procedure Procedure Types Cath Procedure Diagnostic Procedure [facility] w/Coronaries Procedure Description Procedure Date Procedure Date: 03/22/2019 Procedure Start Time: 10:08 Procedure End Time: 10:17 Procedure Staff Name Function Byron Dhaliwal MD Performing Physician Colette Dacosta RT Monitor Beena Dickson RT Scrub James Kim RN Nurse Adalberto Fried RT Materials Tech Procedure Data Cath Procedure Fluoroscopy Diagnostic fluoroscopy Total fluoroscopy Time: 1.3 time: 1.3 min min Diagnostic fluoroscopy Total fluoroscopy dose: 439 dose: 439 mGy mGy Contrast Material Contrast Material Type Amount (ml) Isovue 300 61 Entry Location Entry Primary Successful Side Size Upsize Upsize Entry Closure Succes sful Closure Location (Fr) 1 (Fr) 2 (Fr) Remarks Device Remarks Femoral Right 5 Fr Exoseal artery Estimated blood loss: 5 ml Diagnostic catheters Device Type Used For End Catheter Placement MULTIPACK Pigtail 5 Fr Procedure catheter MULTIPACK JL 4.0 5Fr Procedure catheter MULTIPACK 3DRC 5Fr Procedure catheter Procedure Complications No complications Procedure Medications Medication Administration Route Dosage Oxygen etCO2 Nasal cannula 2 l/min Lidocaine 2% added to field 20 Heparin Flush Bag added to field 2 bags (1000units/500ml NS) 0.9% NaCl I.V. 100 ml/hr Versed I.V. 2 mg Fentanyl I.V. 50 mcg Versed I.V. 2 mg Fentanyl I.V. 50 mcg Versed I.V. 1 mg Hemodynamics Rest BSA: 2.19 (m2) HGB: 14.6 (g/dl) O2 Consumption: Estimated: 225.8 (ml/min) O2 Con sumption indexed: Estimated:103.11 (ml/min/m) Heart Rate: 87 (bpm) Snapshots Pre Cath Intra NCS Post Cath Vital Signs Time Heart Resp SPO2 etCO2 NIBP (mmHg) Rhythm Pain Sedation Rate (ipm) (%) (mmHg) Status Level (bpm) 9:56:23 86 18 95 0 146/85(101) NSR 0 (11) 10(A) , No pain 10:00:39 81 22 94 28.8 112/77(109) NSR 0 (11) 10(A) , No pain 10:04:51 81 24 93 32.6 123/74(90) NSR 0 (11) 10(A) , No pain 10:08:58 81 23 94 34.9 119/72(94) NSR 0 (11) 9(A) , No pain 10:13:14 81 19 93 38.7 121/69(93) NSR 0 (11) 9(A) , No pain 10:17:26 79 20 95 34.9 121/73(88) NSR 0 (11) 10(A) , No pain Medications Time Medication Route Dose Verified Delivered Reason Notes Eff ectiveness by by 10:00:09 Oxygen etCO2 2 Byron Buffie used for Nasal l/min Madhuri Kim RN procedure cannula 10:00:15 Lidocaine 2% added 20ml Byron Byron for local to vial Madhuri Dhaliwal MD anesthetic field 10:00:20 Heparin Flush added 2 Byron Byron used for Bag to bags Madhuri Dhaliwal MD procedure (1000units/500ml field NS) 10:00:29 0.9% NaCl I.V. 100 Byron Buffie Per ml/hr Madhuri Kim RN physician 10:06:37 Versed I.V. 2 mg Byron Lombardiie for Madhuri Kim RN sedation 10:06:44 Fentanyl I.V. 50 Byron Buffie for katy Kim RN sedation 10:09:47 Versed I.V. 2 mg Byron Harjitie for Madhuri Kim RN sedation 10:09:51 Fentanyl I.V. 50 Byron Lombardiie for mcg Madhuri Kim RN sedation 10:12:51 Versed I.V. 1 mg Byron Buffie for Madhuri Kim RN sedation Procedure Log Time Note 9:30:37 Time tracking: Regular hours (M-F 7:00 - 5:00) 9:30:40 Plan of Care:Hemodynamics will remain stable., Cardiac rhythm will remain stable., Comfort level will be maintained., Respiratory function will remain adequate., Patient/ family verbilizes understanding of procedure., Procedure tolerated without complication., Recovers from procedure without complications.. 9:30:43 Procedure Status Elective Heart Cath (OP). 9:30:45 Signed procedure consent form obtained from patient. 9:31:26 Patient Weight : 229.28 lbs 9:31:46 Patient Height : 68.9 inches 9:31:52 Arrival Date: 03/22/2019 12:00:00 AM 9:33:38 Lab Result : Hemoglobin 14.6 g/dl 9:33:38 Lab Result : Hematocrit 44.6 % 9:33:38 Lab Result : eGFR NONAFRICAN 69 ml/min 9:33:38 Lab Result : BUN 16 mg/dl 9:33:38 Lab Result : Creatinine 0.9 mg/dl 9:34:10 ACC Patient presents with Stable Angina CCS Anginal Class 3--Marked limitation of physical activity, angina occurs with ordinary activity.. 9:34:17 H&P Date Dictated: 03/22/2019 New H&P dictated by physician.. 9:34:57 Stress Test: yes; normal INFERIOR 9:36:49 Risk of Mortality: .1 9:36:51 Risk of blood transfusion: .1 9:36:54 Risk of MABEL: .1 9:43:36 Adalberto SCOTT(R) sent for patient. Start room use. 9:55:12 Patient received from Pre/Post Procedure Room to CCL 1 Alert and oriented. Tansferred to table in Supine position. 9:55:15 Warm blankets applied, and paloma hugger turned on for patient comfort. 9:55:15 Correct patient and procedure confirmed by team. 9:55:16 ECG and BP/O2 sat monitors applied to patient. 9:55:17 Vital chart was started 9:55:23 Rhythm: sinus rhythm 9:55:26 Full Disclosure recording started 9:55:27 Baseline sample Acquired. 9:55:30 Pre-procedure instructions explained to patient. 9:55:30 Pre-op teaching completed and patient verbalized understanding. 9:55:31 Family in patients room. 9:55:33 Patient NPO since Midnight. 9:56:07 Patient allergic to Other allergySULFA, ISOSORIBIDE, CEFTRIAZONE, PROMETHAZINE, ONDANSETRON 9:56:09 Is the patient allergic to Iodine/contrast media? No. 9:56:15 Is patient on blood thinner?Yes 9:56:18 ACC The patient was administered the following blood thiners within the last 24 hours: ACCPlavix 9:56:57 Patient diabetic? No. 9:57:00 Patient not . Patient has had hysterectomy. 9:57:04 Previous problem with sedation/anesthesia? No ? 9:59:34 Snore? Yes 9:59:35 Sleep apnea? No 9:59:36 Deviated septum? No 9:59:37 Opens mouth fully? Yes 9:59:39 Sticks out tongue? Yes 9:59:40 Airway obstruction? No ? 9:59:43 Dentures? Yes ? 9:59:46 Pre procedure: right dorsailis pedis pulse 2+ Normal; easily identifiable; not easily obliterated 9:59:49 Patient pain scale 0/10 ?. 9:59:56 IV patent on arrival in left hand with 0.9% NaCl at [facility]. 10:00:03 Lab results completed and on chart. 10:00:08 Right groin area was prepped with chlora-prep and draped in sterile fashion 10:00:09 Oxygen 2 l/min etCO2 Nasal cannula was administered by James Kim RN; used for procedure; Verbal order read back and verified. 10:00:09 Alarms reviewed by R. N. 10:00:09 Sharps counted by scrub and verified by R.N. 10:00:12 Use device set Femoral Dx 10:00:13 ACIST Syringe (48677) opened to sterile field. 10:00:13 Bag Decanter (2002S) opened to sterile field. 10:00:15 Lidocaine 2% 20ml vial added to field was administered by Byron Dhaliwal MD; for local anesthetic; Verbal order read back and verified. 10:00:15 ACIST Hand Control (29870) opened to sterile field. 10:00:15 ACIST Manifold (80960) opened to sterile field. 10:00:16 Tegaderm 4 x 4 (1626W) opened to sterile field. 10:00:17 Medline Cath Pack ([id number]) opened to sterile field. 10:00:18 DIAGNOSTIC Multipack 5Fr catheter set (ZN9315) opened to sterile field. 10:00:19 SHEATH 5FR [place] (JPS034) opened to sterile field. 10:00:19 EMERALD Guide Wire (502-876) opened to sterile field. 10:00:20 Heparin Flush Bag (1000units/500ml NS) 2 bags added to field was administered by Byron Dhaliwal MD; used for procedure; Verbal order read back and verified. 10:00:29 0.9% NaCl 100 ml/hr I.V. was administered by James Kim RN; Per physician; Verbal order read back and verified. 10:05:33 --------ALL STOP TIME OUT------ 10:05:34 Final Timeout: patient, procedure, and site verified with staff and physician. All members of the team are in agreement. 10:05:35 Right groin site verified by team. 10:05:38 Fire Safety Assessment: A--An alcohol-based skin anteseptic being used preoperatively., C--Open oxygen or nitrous oxide is being used., D--An ESU, laser, or fiber-optic light is being used. 10:05:41 Physical assessment completed. ASA score P 2 - A patient with mild systemic disease as per Byron Dhaliwal MD. 10:05:44 2) 60-89 Mildly reduced kidney function, and other findings (as for stage 1) point to kidney disease. 10:05:47 Maximum allowable contrast dose (3.7 X eGFR X 0.75)191 ml. 10:05:51 Sedation plan: IV Moderate Sedation Medication:Versed, Fentanyl 10:06:37 Versed 2 mg I.V. was administered by James Kim RN; for sedation; Verbal order read back and verified. 10:06:44 Fentanyl 50 mcg I.V. was administered by James Kim RN; for sedation; Verbal order read back and verified. 10:08:15 Procedure started. 10:08:22 Local anesthetic to right femoral artery with Lidocaine 2% by Byron Dhaliwal MD.INITIAL ACCESS ONLY 10:08:31 A 5 Fr sheath was inserted into the Right Femoral artery 10:08:35 Zero performed for pressure channel P1 10:08:39 Zero performed for pressure channel P1 10:09:10 A MULTIPACK Pigtail 5 Fr catheter was advanced over the wire and used for Procedure. 10:09:17 LV gram done using RIVERA 10:09:19 Injector settings: Ml/sec: 10, Volume: 20, 10::47 Versed 2 mg I.V. was administered by James Kim RN; for sedation; Verbal order read back and verified. 10:09:51 Fentanyl 50 mcg I.V. was administered by James Kim RN; for sedation; Verbal order read back and verified. 10:10:05 EF : 60 % 10:10:07 Catheter removed. 10:10:15 A MULTIPACK JL 4.0 5Fr catheter was advanced over the wire and used for Procedure. 10:11:33 LCA angiography performed. 10:11:59 Catheter removed. 10:12:07 A MULTIPACK 3DRC 5Fr catheter was advanced over the wire and used for Procedure. 10:12:51 Versed 1 mg I.V. was administered by James Kim RN; for sedation; Verbal order read back and verified. 10:12:53 RCA angiography performed. 10:12:59 Catheter removed. 10:13:01 EXOSEAL 5Fr (EX500) opened to sterile field. 10:13:40 Sheath removed intact; hemostasis achieved with Exoseal to the Right Femoral artery. 10:13:48 Procedure ended.(Physican Out) 10:14:10 Fluoroscopy time 01.30 minutes. 10:14:13 Flurop Dose total: 439 10:14:13 Fluoroscopy dose: 439 mGy 10:14:24 Dose Area Product 43762 mGy/cm. 10:14:30 Contrast amount:Isovue 300 61ml. 10:14:33 Maximum allowable dose exceeded? No. 10:14:34 Sharps counted by scrub and verified by R.N. 10:14:43 Post-op/insertion site Right Femoral artery dressed using a 4 x 4 and Tegaderm. 10:14:47 Post-procedure physical assessment completed. ASA score P 2 - A patient with mild systemic disease as per Byron Dhaliwal MD. 10:14:52 Post procedure rhythm: unchanged. 10:14:54 Estimated blood loss: 5 ml 10:14:56 Post procedure instruction explained to patient.Patient verbalizes understanding. 10:14:57 Patient needs reinforcement of post procedure teaching. 10:15:29 Procedure and supply charges have been captured, reviewed, submitted and are correct. 10:15:40 Procedure Complication : No complications 10:17:35 Vital chart was stopped 10:17:[address] [facility] Findings: mild to moderate CAD (<70%) 10:17:39 Operative report dictated upon procedure completion. 10:17:39 See physician's report for complete and final results. 10:17:40 Report given to Pre/Post Procedure Room. 10:17:43 Patient transfered to Pre/Post Procedure Room with Bed. 10:17:45 Procedure ended. 10:17:45 Full Disclosure recording stopped 10:17:48 End room use (Document Last) 10:20:04 End room use (Document Last) 10:20:32 End room use (Document Last) Device Usage Item Name Manufacture Quantity Catalog Hospital Part Current Minimal L ot# / Number Charge Number Stock Stock Serial# Code ACIST Acist 1 09843 513501 162092 [id number] 20 Syringe Medical (94265) Systems Inc Bag Microtek 1 059468 01840 622037 5 Decanter Medical Inc. () ACIST Hand Acist 1 96872 019048 334871 930929 5 Control Medical (63235) Systems Inc ACIST Acist 1 12092 022494 047662 324607 5 Manifold Medical (88709) Systems Inc Tegaderm 4 3M 1 1626W 701297 437178 536768 5 x 4 (1626W) Medline Medline 1 [id number] 932855 41355 995301 5 Cath Pack ([id number]) DIAGNOSTIC Cardinal 1 QG9775 107681 00747 598240 30 Multipack Health 5Fr catheter set (BX8785) SHEATH 5FR Terumo 1 HJC736 384193 026514 423128 5 [place] (VUR716) EMERALD Cardinal 1 502-455 913948 532805 586353 5 Guide Wire Health (502-455) MULTIPACK Cardinal 1 599734 5 Pigtail 5 Health Fr catheter MULTIPACK Cardinal 1 644412 5 JL 4.0 5Fr Health catheter MULTIPACK Cardinal 1 669431 5 3DRC 5Fr Health catheter EXOSEAL 5Fr Cardinal 1 EX500 161336 788021 850387 10 (EX500) Health Signature Audit Sloan Stage Time Signature Unsigned Intra-Procedure 03/22/2019 Colette Dacosta 10:20:04 AM RT(R) Intra-Procedure 03/22/2019 James Kim RN 10:20:32 AM Intra-Procedure 03/22/2019 Byron Dhaliwal 10:20:50 AM [facility] [address] [place] [address]
[~2019-03-22 07:38] MED LIST changes: -ABILIFY10 MG PO; -AMBIEN CR 6.26.25 MG PO; -BAYER ASPIRIN325 MG PO; -BUSPAR10 MG PO; -FOLIC ACID1 MG PO; -LYRICA50 MG PO; -MINIPRESS2 MG PO; -NITRO-DUR0.3 MG TRANSDERM; -NITROSTAT0.4 MG SL; -VIIBRYD10 MG PO
[2019-03-22] MEDS ORDERED: LYRICA50 MG PO (08:05)
[2019-03-22] MEDS ORDERED: MULTI-DAY VITAM1 TAB PO (08:07)
[2019-03-22] MEDS ORDERED: FOLIC ACID1 MG PO (08:07)
[2019-03-22] MEDS ORDERED: BAYER ASPIRIN325 MG PO (08:10)
[2019-03-22] MEDS ORDERED: ABILIFY10 MG PO (08:10)
[2019-03-22] MEDS ORDERED: BUSPAR10 MG PO (08:11)
[2019-03-22] MEDS ORDERED: VIIBRYD10 MG PO (08:12)
[2019-03-22] MEDS ORDERED: AMBIEN CR 6.26.25 MG PO (08:13)
[2019-03-22] MEDS ORDERED: ATIVAN1 MG PO (08:14)
[2019-03-22] MEDS ORDERED: NITROSTAT0.4 MG SL (08:15)
[2019-03-22] MEDS ORDERED: MINIPRESS2 MG PO (08:16)
[2019-03-22] MEDS ORDERED: NITRO-DUR0.3 MG TRANSDERM (08:17)
[2019-03-22 08:21] VITALS: BP 109/68; Ht 175.3 cm; Wt 104.5 kg
[2019-03-22 08:28] LABS: BASOPHILS 0.1 % (0-2); EOSINOPHILS 0 % (0-7); HEMATOCRIT 44.6 % (36.0-48.0); HEMOGLOBIN 14.6 g/dL (12-16); IMMATURE GRANULOCYTES 0.1 % (0-5); LYMPHOCYTES 13.5 % (15-50); MCH 29.7 pg (26.0-34.0); MCHC 32.7 g/dL (31.0-37.0); MCV 90.7 fL (80.0-100.0); MEAN PLATELET VOLUME 10.5 fL (7.4-10.4); MONOCYTES 4.8 % (2-11); NEUTROPHILS 81.5 % (40-80); RBC 4.92 10x6/uL (4.00-5.40); RDW 13.8 % (11.5-14.5); WBC 7.5 10x3/uL (4.8-10.8)
[2019-03-22 08:48] LABS: ANION GAP 10.7 mmol/L (8-16); CALCIUM 8.7 mg/dL (8.5-10.1); CARBON DIOXIDE 27.5 mmol/L (21.0-32.0); CREATININE - SERUM 0.9 mg/dL (0.6-1.3); LDL-HDL RATIO 0.8 ratio (1.5-3.5); POTASSIUM - SERUM 3.2 mmol/L (3.5-5.1)
[2019-03-22 08:54] LABS: PLATELET COUNT 230 10x3/uL (130-400)
--- NOTE | 2019-03-22 10:30 | NUR ---
PT ARRIVED BY STRETCHER. FRIEND AT BEDSIDE. CALL LIGHT WITHIN REACH. ASSESSMENT COMPLETED. VSS. RIGHT GROIN DRESSING C/D/I. NO S/S OF HEMATOMA NOTED.
--- NOTE | 2019-03-22 10:45 | NUR ---
RIGHT GROIN DRESSING C/D/I. NO S/S OF HEMATOMA NOTED. PT IN SUPINE POSITION. DENIES NAUSEA/PAIN AT THIS TIME. CALL LIGHT WITHIN REACH. FRIEND AT BEDSIDE.
--- NOTE | 2019-03-22 11:15 | NUR ---
RIGHT GROIN DRESSING C/D/I. NO S/S OF HEMATOMA NOTED. CALL LIGHT WITHIN REACH. VSS. HEAD OF BED INC TO 30 DEGREES. TOLERATED WELL. SET UP WITH SANDWICH TRAY AND DRINK. DENIES NAUSEA/PAIN AT THIS TIME.
--- NOTE | 2019-03-22 11:45 | NUR ---
PT RESTING COMFORTABLY. VSS. RIGHT GROIN DRESSING C/D/I. NO S/S OF HEMATOMA NOTED. CALL LIGHT WITHIN REACH. WAITING ON DR. KAPLAN TO ROUND ON PT AND SPEAK WITH HER.
--- NOTE | 2019-03-22 12:00 | NUR ---
DR. KAPLAN ROUNDED AND SPOKE WITH PT. PIV D/C'D WITH CATH TIP INTACT. PT TOLERATED WELL. DISCUSSED DISCHARGE INSTRUCTIONS WITH PT AND PT'S FRIEND. THEY VOICED UNDERSTANDING. RIGHT GROIN DRESSING C/D/I. NO S/S OF HEMATOMA NOTED. PT INSTRUCTED TO GET UP AND DRESSED AT THIS TIME.
--- NOTE | 2019-03-22 12:15 | NUR ---
PT TAKEN OUT TO VEHICLE BY WHEELCHAIR. NO S/S OF DISTRESS NOTED. ALL BELONGINGS AND PAPERWORK IN HAND.
--- NOTE | 2019-03-25 09:28 | OP ---
PATIENT NAME: AMY RAPHAEL MEDICAL RECORD: [id number] :65 LOCATION:D.CAT ADMISSION DATE: SURGEON: DARLENE KAPLAN MD DATE OF OPERATION: 03/22/2019 PROCEDURES: 1. Left heart catheterization. 2. Selective coronary angiography. 3. Left ventriculogram. INDICATION: Angina and coronary artery disease. PROCEDURE IN DETAIL: After informed consent was obtained and after a detailed description of risks, benefits as well as alternative therapies, the patient elected to proceed with angiogram and heart catheterization. The right femoral area was prepped and draped in normal sterile fashion. Right femoral artery was cannulated via modified Seldinger technique with placement of 5-Faroese sheath. All catheters exchanged through this sheath. FINDINGS: Left ventriculogram was performed in standard 30-degree RIVERA view, reveals preserved cardiac wall motion, ejection fraction 55%. SELECTIVE CORONARY ANGIOGRAPHY: 1. Left main is with no significant angiographic disease. 2. Left anterior descending has previously placed stents, these are widely patent with no significant restenosis. No disease elsewise throughout the LAD or its branches. 3. Left circumflex has moderate irregularities, but no flow-limiting stenosis. 4. Right coronary artery has moderate irregularities, but no flow-limiting stenosis. OVERALL IMPRESSION: Wide patency of the previously placed stents. No stenosis elsewise. Normal left ventricular function. Continue medical management of the coronary artery disease and cardiac risk factors. TRANSINT:[id number] Voice Confirmation ID: [id number] DOCUMENT ID: [id number] DARLENE KAPLAN MD at 0928 CC: [id number] DICTATION DATE: 03/22/19 1018 TABLEAU DEVELOPER: 03/22/19 1025 DEP CLI 03/22/19 [place] [id number] [place] [id number]
--- NOTE | 2019-03-25 09:29 | HP ---
PATIENT: AMY RAPHAEL MEDICAL RECORD: [id number] ACCOUNT: [id number] LOCATION:[place] : 65 ADMISSION DATE: 03/22/19 PCP: JACQUES FERRARO MD HISTORY AND PHYSICAL EXAMINATION DIAGNOSES: 1. Angina. 2. Abnormal nuclear stress test. 3. Coronary artery disease. 4. Previous percutaneous transluminal coronary angioplasty stent. 5. Hypertension. 6. Hyperlipidemia. 7. Noninsulin-dependent diabetes. HISTORY OF PRESENT ILLNESS: Mrs. Raphael presents with increasing anginal symptomatology, underwent nuclear stress testing, which was intermediate risk, abnormal, continues to have chest pain, is now brought for cardiac catheterization. PHYSICAL EXAMINATION: CONSTITUTIONAL/GENERAL APPEARANCE: Well nourished, well developed, appears stated age. EYES: Lids and conjunctivae noninjected. No discharge. No pallor. ENT: Lips within normal limit. No cyanosis. No pallor. NECK: Carotid arteries, bilateral normal upstroke. No bruits. No thrills. No jugular venous pressure or distention. CERVICAL LYMPH NODES: Nontender. Nonenlarged. THYROID: Not enlarged. No nodules. CARDIOVASCULAR: Precordial exam, nondisplaced. No heaves or pericardial thrills. Rate and rhythm, regular. Heart sounds, normal S1, normal S2. No S3, no gallop, no rub. Systolic murmur, not heard. Diastolic murmur, not heard. RESPIRATORY: Respiratory effort, unlabored. Normal curvature. No thoracic deformity. No chest wall tenderness. Percussion, resonant. Auscultation, clear. No wheezes, no rales, no rhonchi. ABDOMEN: Soft, nondistended, nontender. No abdominal pain, no vomiting and normal appetite. MUSCULOSKELETAL: No joint tenderness, normal gait, normal tone. SKIN: Warm and dry. OVERALL IMPRESSION: Anginal chest discomfort with abnormal nuclear stress test in a patient with a past history of coronary artery disease, multivessel PTCA stent, hypertension, hyperlipidemia, and diabetes, most likely she has recurrent hemodynamically significant coronary artery disease. We will proceed with coronary angiography. Further care depends upon findings of the angiography. TRANSINT:[id number] Voice Confirmation ID: [id number] DOCUMENT ID: [id number] HISTORY AND PHYSICAL [id number] AMY RAPHAEL DARLENE KAPLAN MD at 0929 CC: [id number] DICTATION DATE: 03/24/19 1134 TERMINAL MAKE UP OPERATOR: 03/24/19 1149 DEP CLI 03/22/19 [place] [id number] [place] [address]
== END 2019-03-22 12:15 | disposition home or self-care (01) ==
LOC: D.CATH 07:38
PROVIDERS: ATTEND Internal Medicine Interventional Cardiology
DX: I25.110 Atherosclerotic heart disease of native coronary artery with unstable angina pectoris (principal); R94.30 Abnormal result of cardiovascular function study, unspecified; I10 Essential (primary) hypertension; E78.5 Hyperlipidemia, unspecified; E11.9 Type 2 diabetes mellitus without complications

== ENCOUNTER → 2019-10-22 11:48 | Outpatient (CLI) | payer OTHER ==
[2019-03-22 08:21] VITALS: BMI 34.0
[~2019-10-22 11:48] MED LIST changes: +ABILIFY10 MG PO; +AMBIEN CR 6.26.25 MG PO; +BAYER ASPIRIN325 MG PO; +BUSPAR10 MG PO; +FOLIC ACID1 MG PO; +LYRICA50 MG PO; +MINIPRESS2 MG PO; +NITRO-DUR0.3 MG TRANSDERM; +NITROSTAT0.4 MG SL; +VIIBRYD10 MG PO
== END | disposition home or self-care (01) ==
LOC: D.RAD 11:48
PROVIDERS: ATTEND Family Medicine
DX: M25.562 Pain in left knee (principal); M25.561 Pain in right knee; M25.512 Pain in left shoulder; M25.511 Pain in right shoulder

== ENCOUNTER 2019-12-10 11:52 | Inpatient (IN) | payer OTHER ==
[~2019-12-10] VITALS: Ht 175.3 cm; Wt 121.8 kg
[2019-12-10] MEDS ORDERED: MAG-OXIDE400 MG PO (12:09)
[2019-12-10] MEDS ORDERED: SUPER B COMPLE1 EAC1 PO (12:09)
--- NOTE | 2019-12-10 13:00 | NUR ---
RESPIRATORY CALLED FOR UPDRAFT AND ABG'S
[2019-12-10 13:44] LABS: BASOPHILS 0.2 % (0-2); EOSINOPHILS 0.7 % (0-7); HEMATOCRIT 44.3 % (36.0-48.0); HEMOGLOBIN 14.3 g/dL (12-16); IMMATURE GRANULOCYTES 0.2 % (0-5); MCH 29.2 pg (26.0-34.0); MCHC 32.3 g/dL (31.0-37.0); MCV 90.6 fL (80.0-100.0); MEAN PLATELET VOLUME 10.3 fL (7.4-10.4); MONOCYTES 10.4 % (2-11); NEUTROPHILS 69.5 % (40-80); PLATELET COUNT 257 10x3/uL (130-400); RBC 4.89 10x6/uL (4.00-5.40); RDW 14.1 % (11.5-14.5); WBC 13.1 10x3/uL (4.8-10.8)
[2019-12-10 13:45] VITALS: BP 121/63
[2019-12-10 13:55] LABS: CALC OSMOLALITY 277 mosm/kg (275-300); CALCIUM 9.5 mg/dL (8.5-10.1); CARBON DIOXIDE 31.2 mmol/L (21.0-32.0); CHLORIDE - SERUM 102 mmol/L (98-107); CREATININE - SERUM 0.9 mg/dL (0.6-1.3); GLUCOSE 110 mg/dL (74-106); SODIUM 139 mmol/L (136-145); UREA NITROGEN 10 mg/dL (7-18); eGFR NON AFRICAN AMERICAN 69 mL/min (90-120)
[2019-12-10 14:02] VITALS: BP 123/67
[2019-12-10 14:04] LABS: BILIRUBIN NEGATIVE (NEGATIVE); GLUCOSE NEGATIVE (NEGATIVE); KETONE NEGATIVE (NEGATIVE); NITRITE NEGATIVE (NEGATIVE); UROBILINOGEN NORMAL (NORMAL)
[2019-12-10 14:10] LABS: ALBUMIN 3.6 g/dL (3.4-5.0); ALKALINE PHOSPHATASE 96 U/L (30-120); ALT (SGPT) 27 U/L (10-68); BILIRUBIN - TOTAL 0.51 mg/dL (0.2-1.3); CKMB 0.2 U/L (0.0-3.6); CREATINE KINASE 157 UL (21-215); PRO BNP 40 pg/mL (0-125); PROTEIN - SERUM 7.8 g/dL (6.4-8.2); TROPONIN-I < 0.017 ng/mL (0.000-0.060)
[2019-12-10 14:14] LABS: APTT 28.3 SECONDS (22.8-39.4); INR 0.98 (0.85-1.17)
[2019-12-10 14:20] LABS: D-DIMER-QUANTITATIVE 2.03 ug/mLFEU (0.20-0.54)
--- NOTE | 2019-12-10 14:46 | NUR ---
PT TO CT AT THIS TIME
[2019-12-11 00:17] VITALS: BP 106/67; Ht 175.3 cm; Wt 121.8 kg
[2019-12-11 04:00] VITALS: BP 109/72
[2019-12-11 07:23] LABS: ALBUMIN 3.1 g/dL (3.4-5.0); ALKALINE PHOSPHATASE 350 U/L (30-120); BILIRUBIN - TOTAL 0.68 mg/dL (0.2-1.3); CALCIUM 9.1 mg/dL (8.5-10.1); CARBON DIOXIDE 28.7 mmol/L (21.0-32.0); CHLORIDE - SERUM 103 mmol/L (98-107); CREATININE - SERUM 0.7 mg/dL (0.6-1.3); GLUCOSE 107 mg/dL (74-106); POTASSIUM - SERUM 3.9 mmol/L (3.5-5.1); PROTEIN - SERUM 7.1 g/dL (6.4-8.2); SODIUM 139 mmol/L (136-145); eGFR NON AFRICAN AMERICAN > 90 mL/min (90-120)
[2019-12-11 07:45] LABS: ALT (SGPT) 722 U/L (10-68); CALC OSMOLALITY 277 mosm/kg (275-300); UREA NITROGEN 13 mg/dL (7-18)
[2019-12-11 08:08] VITALS: BP 152/83
--- NOTE | 2019-12-11 11:48 | MORECARE ---
CASE MANAGEMENT DISCHARGE SUMMARY PATIENT: AMY RAPHAEL UNIT: [id number] ADM DATE: 12/10/19 AGE: 54 : 65 SEX: F ROOM/BED: D.2133 AUTHOR: MELISSA STONE PHYSICIAN: REFERRING PHYSICIAN: JACQUES FERRARO MD DATE OF SERVICE: 12/11/19 Discharge Plan Patient Name: AMY RAPHAEL Facility: [facility]:[place] : 1965 Planned Disposition: Home Anticipated Discharge Date: Discharge Date: Expected LOS: Initial Reviewer: [email or web address] Initial Review Date: 12/10/2019 Generated: 12/11/19 12:48 pm DCPIA - Discharge Planning Initial Assessment Updated by [email or web address]: Kamala Reynolds on 12/11/19 11:44 am * Is the patient Alert and Oriented? Yes * How many steps to enter\exit or inside your home? 3/0 * PCP Madelyn * [facility]acy [facility] * Preadmission Environment Home Alone * ADLs Independent * Equipment None * List name and contact numbers for known caregivers / representatives who currently or will assist patient after discharge: Fausto (son) [phone] Stefani (friend) [phone] * Verbal permission to speak to the caregivers and representatives has been obtained from the patient. Yes * Community resources currently utilized None * Additional services required to return to the preadmission environment? Yes * Can the patient safely return to the preadmission environment? Yes * Has this patient been hospitalized within the prior 30 days at any hospital? No Patient Name: AMY RAPHAEL Page [phone] at 1148 All edits/amendments must be made on the electronic document DICTATION DATE: 12/11/19 1148 TRIPLE VALVE MECHANIC: PHIL 12/11/19 1148 RPT#: [id number] DC DATE: STATUS: ADM IN [facility] [address] [place] [address] END OF REPORT
--- NOTE | 2019-12-11 11:55 | MORECARE ---
CASE MANAGEMENT DISCHARGE SUMMARY PATIENT: AMY RAPHAEL UNIT: [id number] ADM DATE: 12/10/19 AGE: 54 : 65 SEX: F ROOM/BED: D.3210 AUTHOR: MELISSA STONE PHYSICIAN: REFERRING PHYSICIAN: JACQUES FERRARO MD DATE OF SERVICE: 12/11/19 Discharge Plan Patient Name: AMY RAPHAEL Facility: [facility]:[place] : 1965 Planned Disposition: Home Anticipated Discharge Date: Discharge Date: Expected LOS: Initial Reviewer: [email or web address] Initial Review Date: 12/10/2019 Generated: 12/11/19 12:55 pm Comments DCP- Discharge Planning Updated by [email or web address]: Kamala Reynolds on 12/11/19 10:[address] Patient Name: AMY RAPHAEL Admission Status: ER Accout number: [id number] Admission Date: 12-10-2019 : 1965 Admission Diagnosis:OTHER PULMONARY EMBOLISM WITHOUT ACUTE COR PULMONALE Attending: JACQUES FERRARO Current LOS: 1 Anticipated DC Date: Planned Disposition: Home Primary Insurance: Discharge Planning Comments: CM met with patient to complete initial dc planning assessment. CM educated patient on the CM role and verbal consent given by patient to complete assessment. CM verified patient's address, phone number, and emergency contact phone numbers. Patient lives at home alone and is independent with her ADL'S. At discharge patient plans to return home and feels this is a safe discharge. CM discussed availability of home health, rehab services, and medical equipment. Patient denied known discharge needs at this time, but she is currently on 4 liters continuous oxygen. CM anticipates the need for home and portable oxygen. MARIANO signed for [employer]. Declination signed for home health or other DME needs. Transportation provider at discharge will be a family friend Stefani [phone], or her son Fausto at [phone]. CM will continue to follow and will assist as needed with dc plans/needs. Liability Claims Adjuster: Kamala Reynolds DCPIA - Discharge Planning Initial Assessment Updated by [email or web address]: Kamala Reynolds on 12/11/19 11:44 am * Is the patient Alert and Oriented? Yes * How many steps to enter\exit or inside your home? 3/0 * PCP Madelyn * [facility] * Preadmission Environment Home Alone * ADLs Independent * Equipment None * List name and contact numbers for known caregivers / representatives who currently or will assist patient after discharge: Fausto (son) [phone] Stefani (friend) [phone] * Verbal permission to speak to the caregivers and representatives has been obtained from the patient. Yes * Community resources currently utilized None * Additional services required to return to the preadmission environment? Yes * Can the patient safely return to the preadmission environment? Yes * Has this patient been hospitalized within the prior 30 days at any hospital? No Coverage Notice Reviewer: [email or web address] Ariana Reynolds Notice Issued Date-Time: 12/11/2019 11:30 Notice Type: Patient Choice Letter Notice Delivered To: Patient Relationship to Patient: Student Counselor Name: Delivery Method: HAND - Hand Delivered Kaylie Days: Prior Verbal Notification: Recipient Understood Notice: Yes Recipient Signature: Yes Med Rec Note Co-signed by Attending: Coverage Notice Comment: MARIANO Lezama. declination signed for HH or other DME Last DP export: 12/11/19 10:48 am Patient Name: AMY RAPHAEL Page 21549 at 1155 All edits/amendments must be made on the electronic document DICTATION DATE: 12/11/19 1155 ASSISTANT PROFESSOR OF MUSIC: PHIL 12/11/19 1155 RPT#: [id number] DC DATE: STATUS: ADM IN [facility] [address] [place] [address] END OF REPORT
[2019-12-11 13:12] VITALS: BP 113/66
[2019-12-11 16:24] LABS: BASOPHILS 0.2 % (0-2); EOSINOPHILS 1.1 % (0-7); HEMATOCRIT 41.7 % (36.0-48.0); HEMOGLOBIN 13.2 g/dL (12-16); IMMATURE GRANULOCYTES 0.1 % (0-5); LYMPHOCYTES 19.7 % (15-50); MCH 28.9 pg (26.0-34.0); MCHC 31.7 g/dL (31.0-37.0); MCV 91.2 fL (80.0-100.0); MEAN PLATELET VOLUME 10.8 fL (7.4-10.4); MONOCYTES 10.2 % (2-11); NEUTROPHILS 68.7 % (40-80); PLATELET COUNT 223 10x3/uL (130-400); RBC 4.57 10x6/uL (4.00-5.40); RDW 14.5 % (11.5-14.5)
[2019-12-11 20:00] VITALS: BP 107/47
--- NOTE | 2019-12-11 22:15 | NUR ---
PATIENT IS COMPLAINING OF CONSTIPATION. I CALLED , WHO ORDERED DULCOLAX SUPPOSITORY AND LINZESS.
[2019-12-12] VITALS: BP 97/65
[2019-12-12 04:00] VITALS: BP 99/63
--- NOTE | 2019-12-12 04:17 | NUR ---
PATIENT IS CONCERNED BECAUSE SHE DID NOT HAVE A BOWEL MOVEMENT. SHE RECEIVED A SUPPOSITORY AND LINZESS. WE WILL CONTINUE TO MONITOR FOR A BOWEL MOVEMENT.
[2019-12-12 06:28] LABS: BASOPHILS 0.2 % (0-2); EOSINOPHILS 1.8 % (0-7); HEMATOCRIT 42.1 % (36.0-48.0); HEMOGLOBIN 13.3 g/dL (12-16); IMMATURE GRANULOCYTES 0.2 % (0-5); LYMPHOCYTES 16.1 % (15-50); MCH 28.6 pg (26.0-34.0); MCHC 31.6 g/dL (31.0-37.0); MCV 90.5 fL (80.0-100.0); MEAN PLATELET VOLUME 10.5 fL (7.4-10.4); MONOCYTES 8.4 % (2-11); NEUTROPHILS 73.3 % (40-80); RBC 4.65 10x6/uL (4.00-5.40); RDW 14.1 % (11.5-14.5); WBC 9.5 10x3/uL (4.8-10.8)
[2019-12-12 06:34] LABS: PLATELET COUNT 271 10x3/uL (130-400)
[2019-12-12 07:20] LABS: ALBUMIN 3.3 g/dL (3.4-5.0); ANION GAP 16.2 mmol/L (8-16); BILIRUBIN - TOTAL 0.43 mg/dL (0.2-1.3); CARBON DIOXIDE 24.7 mmol/L (21.0-32.0); POTASSIUM - SERUM 3.9 mmol/L (3.5-5.1)
--- NOTE | 2019-12-12 07:27 | NUR ---
PT LAYING SUPINE, RR EVEN AND UNLABORED. DENIES NEEDS OR PAIN AT THIS TIME. CALL LIGHT WITHIN REACH. BED IN LOWEST POSITION. WILL CONTINUE TO MONITOR.
[2019-12-12 08:01] VITALS: BP 120/83
[2019-12-12 12:13] VITALS: BP 104/58
[2019-12-12 15:10] VITALS: BP 112/71
[2019-12-12 20:00] VITALS: BP 138/64
--- NOTE | 2019-12-12 23:16 | NUR ---
PATIENT IS RESTING IN BED. SHE IS ALERT AND ORIENTED. SHE COMPLAINED OF NAUSEA, BUT IT PASSED. SHE RECEIVED MEDICATIONS EARLY PER REQUEST.
[2019-12-13] VITALS: BP 119/69
[2019-12-13 04:00] VITALS: BP 117/72
--- NOTE | 2019-12-13 04:04 | NUR ---
PATIENT IS SLEEPING IN BED. SHE HAS NO COMPLAINTS AT THIS TIME. SHE IS LIKELY TO BE DISCHARGED TODAY. WE WILL CONTINUE TO MONITOR HER RESPIRATORY STATUS.
--- NOTE | 2019-12-13 07:45 | NUR ---
PT SITTING UP IN ROOM, DENIES PAIN OR NEEDS, PT WAITING TO BE DISCHARGED, BED LOW AND LOCKED, SR UP X2, CALL LIGHT IN REACH, WILL CONTINUE TO MONITOR
[2019-12-13] MEDS ORDERED: CIPRO HC OTIC S10 ML EACH EAR (08:55)
[2019-12-13] MEDS ORDERED: IPRAT-ALBUT 0.5-3 ML UPD (08:56)
[2019-12-13] MEDS ORDERED: ELIQUIS5 MG PO ×2 (08:58→09:20)
[2019-12-13] MEDS ORDERED: LINZESS145 MCG PO ×2 (09:06→09:20)
[2019-12-13 09:11] VITALS: BP 128/65
[2019-12-13] MEDS ORDERED: METHOCARBAMOL750 MG PO (09:20)
--- NOTE | 2019-12-13 09:54 | NUR ---
SPOKE WITH PT RE PRESCRIPTIONS NEEDED. SHE REPORTS DR FERRARO IS GOING TO GIVE HER SAMPLES OF ELIQUIS. DOES NOT NEED CIPRO EAR DROPS, ROBAXIN OR LINZESS. REQUESTED ENOUGH DIANNE CALLED IN FOR 10 DAYS, [facility]
--- NOTE | 2019-12-13 10:00 | MORECARE ---
CASE MANAGEMENT DISCHARGE SUMMARY PATIENT: AMY RAPHAEL UNIT: [id number] ADM DATE: 12/10/19 AGE: 54 : 65 SEX: F ROOM/BED: D.2102 AUTHOR: CHASE,DOC PHYSICIAN: REFERRING PHYSICIAN: JACQUES FERRARO MD DATE OF SERVICE: 12/13/19 Discharge Plan Patient Name: AMY RAPHAEL Facility: [facility]:[place] : 1965 Planned Disposition: Home Anticipated Discharge Date: 12/13/19 Discharge Date: Expected LOS: 3 Initial Reviewer: [email or web address] Initial Review Date: 12/10/2019 Generated: 12/13/19 11:00 am Comments DCP- Discharge Planning Updated by [email or web address]: Roxanne Burns on 12/13/19 8:[address] CM met with again for follow up DC needs. Patient states she is a X1 1/2 years. Patient needs a Nebulizer for home use. Patient denies the need for HHS. A friend will pick her up upon DC. CM has contacted Nabeel, with [employer] for the nebulizer. DCP- Discharge Planning Updated by [email or web address]: Kamala Reynolds on 12/11/19 10:[address] Patient Name: AMY RAPHAEL Admission Status: ER Accout number: [id number] Admission Date: 12-10-2019 : 1965 Admission Diagnosis:OTHER PULMONARY EMBOLISM WITHOUT ACUTE COR PULMONALE Attending: JACQUES FERRARO Current LOS: 1 Anticipated DC Date: Planned Disposition: Home Primary Insurance: Discharge Planning Comments: CM met with patient to complete initial dc planning assessment. CM educated patient on the CM role and verbal consent given by patient to complete assessment. CM verified patient's address, phone number, and emergency contact phone numbers. Patient lives at home alone and is independent with her ADL'S. At discharge patient plans to return home and feels this is a safe discharge. CM discussed availability of home health, rehab services, and medical equipment. Patient denied known discharge needs at this time, but she is currently on 4 liters continuous oxygen. CM anticipates the need for home and portable oxygen. MARIANO signed for [employer]. Declination signed for home health or other DME needs. Transportation provider at discharge will be a family friend Stefani [phone], or her son Fausto at [phone]. CM will continue to follow and will assist as needed with dc plans/needs. Vascular Radiologist: Kamala Reynolds DCPIA - Discharge Planning Initial Assessment Updated by [email or web address]: Kamala Reynolds on 12/11/19 11:44 am * Is the patient Alert and Oriented? Yes * How many steps to enter\exit or inside your home? 3/0 * PCP Madelyn * Pharmacy [facility] * Preadmission Environment Home Alone * ADLs Independent * Equipment None * List name and contact numbers for known caregivers / representatives who currently or will assist patient after discharge: Fausto (son) [phone] Stefani (friend) [phone] * Verbal permission to speak to the caregivers and representatives has been obtained from the patient. Yes * Community resources currently utilized None * Additional services required to return to the preadmission environment? Yes * Can the patient safely return to the preadmission environment? Yes * Has this patient been hospitalized within the prior 30 days at any hospital? No External Providers External Provider: Allyson Next Contact Date: Service Request Date: Service Type: Resolution: Reviewer: Comments: Coverage Notice Reviewer: [email or web address] - Kamala Reynolds Notice Issued Date-Time: 12/11/2019 11:30 Notice Type: Patient Choice Letter Notice Delivered To: Patient Relationship to Patient: Puller Through Name: Delivery Method: HAND - Hand Delivered Kaylie Days: Prior Verbal Notification: Recipient Understood Notice: Yes Recipient Signature: Yes Med Rec Note Co-signed by Attending: Coverage Notice Comment: MARIANO Lezama. declination signed for HH or other DME Last DP export: 12/11/19 10:55 am Patient Name: AMY RAPHAEL Page [id number] at 1000 All edits/amendments must be made on the electronic document DICTATION DATE: 12/13/19 1000 GANG SUPERVISOR PIPE LINES: PHIL 12/13/19 1000 RPT#: [id number] DC DATE: STATUS: ADM IN [facility] [address] [place] [address] END OF REPORT
--- NOTE | 2019-12-13 10:33 | NUR ---
GAVE PT DISCHARGE PAPERWORK, ALL QUESTIONS ANSWERED, PT DENIES ANY OTHER NEEDS, ALL PERSONAL BELONGINGS RETURNED, PT WAINTING ON NEBULIZER TO BE DELIVERED.
--- NOTE | 2019-12-13 14:53 | MORECARE ---
CASE MANAGEMENT DISCHARGE SUMMARY PATIENT: AMY RAPHAEL UNIT: [id number] ADM DATE: 12/10/19 AGE: 54 : 65 SEX: F ROOM/BED: D.2102 AUTHOR: CHASE,DOC PHYSICIAN: REFERRING PHYSICIAN: JACQUES FERRARO MD DATE OF SERVICE: 12/13/19 Discharge Plan Patient Name: AMY RAPHAEL Facility: [facility]:[place] : 1965 Planned Disposition: Home Anticipated Discharge Date: 12/13/19 Discharge Date: 12/13/2019 Expected LOS: 3 Initial Reviewer: [email or web address] Initial Review Date: 12/10/2019 Generated: 12/13/19 3:52 pm Comments DCP- Discharge Planning Updated by [email or web address]: Roxanne Burns on 12/13/19 8:[address] CM met with again for follow up DC needs. Patient states she is a X1 1/2 years. Patient needs a Nebulizer for home use. Patient denies the need for HHS. A friend will pick her up upon DC. CM has contacted Nabeel, with [employer] for the nebulizer. DCP- Discharge Planning Updated by [email or web address]: Kamala Reynolds on 12/11/19 10:[address] Patient Name: AMY RAPHAEL Admission Status: ER Accout number: [id number] Admission Date: 12-10-2019 : 1965 Admission Diagnosis:OTHER PULMONARY EMBOLISM WITHOUT ACUTE COR PULMONALE Attending: JACQUES FERRARO Current LOS: 1 Anticipated DC Date: Planned Disposition: Home Primary Insurance: Discharge Planning Comments: CM met with patient to complete initial dc planning assessment. CM educated patient on the CM role and verbal consent given by patient to complete assessment. CM verified patient's address, phone number, and emergency contact phone numbers. Patient lives at home alone and is independent with her ADL'S. At discharge patient plans to return home and feels this is a safe discharge. CM discussed availability of home health, rehab services, and medical equipment. Patient denied known discharge needs at this time, but she is currently on 4 liters continuous oxygen. CM anticipates the need for home and portable oxygen. MARIANO signed for [employer]. Declination signed for home health or other DME needs. Transportation provider at discharge will be a family friend Stefani [phone], or her son Fausto at [phone]. CM will continue to follow and will assist as needed with dc plans/needs. Java Application Developer: Kamala Reynolds DCPIA - Discharge Planning Initial Assessment Updated by [id number]: Kamala Reynolds on 12/11/19 11:44 am * Is the patient Alert and Oriented? Yes * How many steps to enter\exit or inside your home? 3/0 * PCP Madelyn * Pharmacy [facility] * Preadmission Environment Home Alone * ADLs Independent * Equipment None * List name and contact numbers for known caregivers / representatives who currently or will assist patient after discharge: Fausto (son) [phone] Stefani (friend) [phone] * Verbal permission to speak to the caregivers and representatives has been obtained from the patient. Yes * Community resources currently utilized None * Additional services required to return to the preadmission environment? Yes * Can the patient safely return to the preadmission environment? Yes * Has this patient been hospitalized within the prior 30 days at any hospital? No Coverage Notice Reviewer: [id number] - Kamala Reynolds Notice Issued Date-Time: 12/11/2019 11:30 Notice Type: Patient Choice Letter Notice Delivered To: Patient Relationship to Patient: [employer] Name: Delivery Method: HAND - Hand Delivered Kaylie Days: Prior Verbal Notification: Recipient Understood Notice: Yes Recipient Signature: Yes Med Rec Note Co-signed by Attending: Coverage Notice Comment: MARIANO Lezama. declination signed for HH or other DME Last DP export: 12/13/19 9:00 am Patient Name: AMY RAPHAEL Page [id number] at 1453 All edits/amendments must be made on the electronic document DICTATION DATE: 12/13/191452 AUTO FLEET MANAGER: PHIL 12/13/19 145 RPT#: [id number] DC DATE:12/13/19 STATUS: DIS IN [facility] [address] [place] [address] END OF REPORT
== END 2019-12-13 11:38 | disposition home or self-care (01) | DRG 176 ==
LOC: D.ER 11:52 → D.M2 15:59 → D.MS 15:59 → D.EDHOLD 16:55 → D.M2 23:08
PROVIDERS: Family Medicine; ADMIT Family Medicine; ATTEND Family Medicine
DX: I26.99 Other pulmonary embolism without acute cor pulmonale (principal); F33.1 Major depressive disorder, recurrent, moderate; I25.10 Atherosclerotic heart disease of native coronary artery without angina pectoris; M89.49 Other hypertrophic osteoarthropathy, multiple sites; I10 Essential (primary) hypertension; K21.9 Gastro-esophageal reflux disease without esophagitis; E78.00 Pure hypercholesterolemia, unspecified; M79.7 Fibromyalgia; M19.90 Unspecified osteoarthritis, unspecified site; E55.9 Vitamin D deficiency, unspecified; F41.8 Other specified anxiety disorders; G47.00 Insomnia, unspecified; E53.8 Deficiency of other specified B group vitamins; K59.00 Constipation, unspecified

== ENCOUNTER → 2020-09-04 09:10 | Outpatient (CLI) | payer OTHER ==
[2019-12-11 00:17] VITALS: BMI 39.6
[~2020-09-04 09:10] MED LIST changes: +CIPRO HC OTIC S10 ML EACH EAR; +ELIQUIS5 MG PO; +LINZESS145 MCG PO; +MAG-OXIDE400 MG PO; +METHOCARBAMOL750 MG PO; +SUPER B COMPLE1 EAC1 PO
== END | disposition home or self-care (01) ==
LOC: D.LAB 09:10
PROVIDERS: ATTEND Internal Medicine Pulmonary Disease
DX: Z11.52 Encounter for screening for COVID-19 (principal)

== ENCOUNTER → 2020-09-09 08:34 | Outpatient (CLI) | payer OTHER ==
[2019-12-11 00:17] VITALS: BMI 39.6
== END | disposition home or self-care (01) ==
LOC: D.RT 08:34
PROVIDERS: ATTEND Internal Medicine Pulmonary Disease
DX: R06.09 Other forms of dyspnea (principal)